=== PATIENT | female | born 1990 | race Caucasian/White ===

== ENCOUNTER 2020-10-26 20:03 | Emergency (ER) | payer MEDICAID, SELFPAY | END 2020-10-26 21:41 | disposition left against medical advice (07) | PROVIDERS: Emergency Provider Emergency Medicine | DX: L02.91 Cutaneous abscess, unspecified (principal) ==

== ENCOUNTER 2021-04-13 01:25 | Emergency (ER) | payer MEDICAID, SELFPAY ==
[2021-04-13 01:35] VITALS: BP 105/69; BP 128/64; PULSE 87; PULSE 88; RESP 18; TEMP 37.1; O2SAT 98; O2SAT 99; BMI 21.4
[2021-04-13] MEDS: Acetaminophen 325 MG TABLET 975 MG PO (02:11)
[2021-04-13 02:12] VITALS: BP 105/69; PULSE 87
[2021-04-13] MEDS: Ondansetron ODT 4 MG TAB.RAPDIS TRANSLINGU (02:12)
[2021-04-13] MEDS: Ibuprofen 600 MG TABLET PO (02:12)
[2021-04-13] MEDS: cloNIDine HCL 0.2 MG TABLET PO (02:12)
[2021-04-13] MEDS: LORazepam 1 MG TABLET 2 MG PO (02:12)
[2021-04-13 02:43] VITALS: BP 107/48; PULSE 88; RESP 22; O2SAT 97
[2021-04-13 02:50] LABS: MANUAL DIFF FLAG NO
[2021-04-13 02:53] LABS: Basophils Percent Auto 0.4 % (0-2); Eosinophils Absolute Auto 0.1 X10*3/uL (0.0-0.4); Eosinophils Percent Auto 0.5 % (0-4); Hematocrit 40.9 % (37.0-47.0); Hemoglobin 13.6 g/dl (12.0-16.0); Imm Gran Abs Auto 0.03 X10*3/uL (0.00-0.03); Imm Gran Pct Auto 0.3 % (0.0-0.4); Lymphocytes Absolute Auto 1.7 X10*3/uL (1.2-4.9); Lymphocytes Percent Auto 17.8 % (20-40); Mean Corpuscular HGB Conc 33.3 g/dl (31.0-35.0); Mean Corpuscular Hemoglobin 29.6 pg (27.0-33.0); Mean Corpuscular Volume 88.9 fL (80.0-98.0); Mean Platelet Volume 9.6 fL (9.4-12.3); Monocytes Absolute Auto 0.4 X10*3/uL (0.1-1.2); Monocytes Percent Auto 4.4 % (2-11); Neutrophils Absolute Auto 7.5 x10*3/uL (2.0-8.3); Neutrophils Percent Auto 76.6 % (45-73); Platelet Count 238 X10*3/uL (160-400); Red Cell Distribution Width 12.1 % (11.0-16.0); White Blood Count 9.8 X10*3/uL (4.8-10.8)
[2021-04-13] MEDS: LORazepam 2 MG/ML VIAL IVPUSH (02:58)
[2021-04-13] MEDS: Ketorolac Tromethamine 15 MG/ML VIAL 30 MG IVPUSH (02:59)
[2021-04-13 03:03] LABS: Ethanol < 10 mg/dL
[2021-04-13 03:07] LABS: Alanine Aminotransferase 16 U/L (0-31); Albumin Level 4.2 g/dL (3.5-5.0); Alkaline Phosphatase 70 U/L (39-117); Anion Gap 14 (12-20); Aspartate Amino Transferase 21 U/L (5-31); Bilirubin Total 0.8 mg/dL (0.0-1.0); Blood Urea Nitrogen 10 mg/dL (9-16); Calcium 8.6 mg/dL (8.4-10.2); Carbon Dioxide 24 mmol/L (22-29); Chloride 106 mmol/L (96-108); Creatinine Clr Calc Pharmacy 105.1; Estimated Glomerular Filt Rate > 60; Glucose Random 96 mg/dL (60-115); Lipase 14 U/L (8-78); Potassium 3.8 mmol/L (3.3-5.1); Sodium 140 mmol/L (135-145); Total Protein 6.7 g/dL (6.5-8.0)
[2021-04-13 03:11] LABS: COVID-19 Test Negative (Negative); IDNOW Serial# 9DD0AD1C
[2021-04-13] MEDS: methADONE HCl 20 MG/2 ML ORAL.CONC PO (04:55)
--- NOTE | 2021-04-13 05:07 | ED_ITS ---
HPI - General Adult General Chief complaint: General Medical <Jasen Flores MD - Last Filed: 04/13/21 06:49> Stated complaint: detox/withdrawal <Jasen Flores MD - Last Filed: 04/13/21 06:49> Time Seen by Provider: 04/13/21 01:54 <Jasen Flores MD - Last Filed: 04/13/21 06:49> Source: patient <Jasen Flores MD - Last Filed: 04/13/21 06:49> Mode of arrival: ambulatory <Jasen Flores MD - Last Filed: 04/13/21 06:49> Limitations: no limitations <Jasen Flores MD - Last Filed: 04/13/21 06:49> History of Present Illness HPI narrative: 30-year-old female who presents emergency department requesting detox from heroin. The patient states that she uses anywhere from 3-10 bags of heroin daily. She states that she uses this intranasally. She states that she wants to get some help and wants to get into a detox program. She states that she last used heroin yesterday at 6:00 a.m.. She states she is currently withdrawing from opiates. She states that she shaking uncontrollably, she has diffuse bone pain which is severe in intensity. She has nausea with occasional vomiting. She denied diarrhea. She states that she cannot take Suboxone since a causes her to get paranoid. She states she has been in a methadone program in the past and she would like to get into a methadone program again. She denies being suicidal or homicidal. She denies being ill in any way prior to coming to the emergency department. <Jasen Flores MD - Last Filed: 04/13/21 06:49> Related Data Allergies/adverse reactions: Allergies Allergy/AdvReac Type Severity Reaction Status Date / Time aripiprazole [From [facility]] Allergy Unknown ANAPHYLAXIS Verified 04/13/21 02:10 <Jasen Flores MD - Last Filed: 04/13/21 06:49> Review of Systems Review of Systems: Yes all other systems are reviewed and are negative <Jasen Flores MD - Last Filed: 04/13/21 06:49> [facility] Past Medical History [facility] Narrative: Past medical history: Opiate use disorder, acute kidney injury Past surgical history: None. Social history: The patient smokes 1/2 pack of cigarettes per day times many years. The patient states that she uses 3-10 bags of heroin per day. She states that she drinks 10 nips of alcohol per day. <Jasen Flores MD - Last Filed: 04/13/21 06:49> Social History Social History: Social History Advance Directives: No Advance Directives Information Provided: No <Jasen Flores MD - Last Filed: 04/13/21 06:49> Physical Exam Vital Signs: Vital Signs: Last Vital Signs Temp 98.7 F 04/13/21 01:35 Pulse 88 04/13/21 02:43 Resp 22 H 04/13/21 02:43 BP 107/48 L 04/13/21 02:43 Pulse Ox 97 04/13/21 02:43 Body Mass Index 21.4 <Jasen Flores MD - Last Filed: 04/13/21 06:49> Vital Signs: Last Vital Signs Temp 98.7 F 04/13/21 01:35 Pulse 88 04/13/21 02:43 Resp 22 H 04/13/21 02:43 BP 107/48 L 04/13/21 02:43 Pulse Ox 97 04/13/21 02:43 Body Mass Index 21.4 <MELISSA Pickett - Last Filed: 04/13/21 11:39> Const: Other: Awake, alert, very thin, female patient, she appears to be in distress secondary to her pain, she is crying, she is shake, she is crying out for help. <Jasen Flores MD - Last Filed: 04/13/21 06:49> HENMT: Head: Yes normal to inspection, Yes normocephalic and Yes atraumatic <Jasen Flores MD - Last Filed: 04/13/21 06:49> Ears: external ears normal <Jasen Flores MD - Last Filed: 04/13/21 06:49> General nose exam: Normal external nose present <Jasen Flores MD - Last Filed: 04/13/21 06:49> Face and sinus: Yes normal facial exam <MD Kiki Mcarthur Last Filed: 04/13/21 06:49> Mouth: Normal oral and palatal mucosa present <MD Kiki Mcarthur Last Filed: 04/13/21 06:49> Throat: Yes posterior oropharynx normal <MD Kiki Mcarthur Last Filed: 04/13/21 06:49> Eyes: General: appearance normal, both eyes and all related structures <MD Kiki Mcarthur Last Filed: 04/13/21 06:49> Pupils: Equal, round and reactive pupils present <MD Kiki Mcarthur Last Filed: 04/13/21 06:49> Neck: Neck: Yes normal visual inspection, Yes no lymphadenopathy, Yes trachea midline and Yes supple <MD Kiki Mcarthur Last Filed: 04/13/21 06:49> Chest: Chest palpation & inspection: normal inspection of the chest and normal palpation of entire chest wall <MD Kiki Mcarthur Last Filed: 04/13/21 06:49> Resp: Effort & Inspection: normal respiratory effort and able to speak in complete sentences <MD Kiki Mcarthur Last Filed: 04/13/21 06:49> Auscultation: clear to auscultation bilaterally <MD Kiki Mcarthur Last Filed: 04/13/21 06:49> Cardio: Rate: regular rate <MD Kiki Mcarthur Last Filed: 04/13/21 06:49> Rhythm: regular rhythm <MD Kiki Mcarthur Last Filed: 04/13/21 06:49> Heart sounds: S1 normal heart sound present, S2 normal heart sound present and no murmurs <MD Kiki Mcarthur Last Filed: 04/13/21 06:49> GI: Inspection: Yes normal to inspection <MD Kiki Mcarthur Last Filed: 04/13/21 06:49> Palpation (GI): Soft to palpation, nontender and no guarding <MD Kiki Mcarthur Last Filed: 04/13/21 06:49> Auscultation: normal bowel sounds <Jasen Flores MD - Last Filed: 04/13/21 06:49> : General: Yes no CVA tenderness <Jasen Flores MD - Last Filed: 04/13/21 06:49> Back/Spine/Pelvis: Back: no CVA tenderness <Jasen Flores MD - Last Filed: 04/13/21 06:49> Skin: General skin exam: no rashes or lesions noted <Jasen Flores MD - Last Filed: 04/13/21 06:49> Neuro: Cranial nerves: Yes CN's II-XII intact bilaterally and Yes Equal, round and reactive pupils present <Jasen Flores MD - Last Filed: 04/13/21 06:49> Cognition (Neuro): normal cognition <Jasen Flores MD - Last Filed: 04/13/21 06:49> Motor exam (neuro): 5/5 motor strength present throughout <Jasen Flores MD - Last Filed: 04/13/21 06:49> Extrem: General: Yes normal to inspection <Jasen Flores MD - Last Filed: 04/13/21 06:49> Psych: Appearance: grossly normal <Jasen Flores MD - Last Filed: 04/13/21 06:49> Speech and movement: Normal speech and movement present <Jasen Flores MD - Last Filed: 04/13/21 06:49> Thought content: Normal thought content present, suicidality and no homicidality <Jasen Flores MD - Last Filed: 04/13/21 06:49> Course Course Course Narrative: 30-year-old female with history of opiate use disorder who uses anywhere from 3-10 bags heroin intranasally daily. She also drinks 10 nips of alcohol per day. Patient states that she last had heroin at 6:00 a.m. yesterday. Patient in the to be in acute opiate withdrawal. She states she cannot take Suboxone sense it causes her to be paranoid. Patient was initially managed with oral Ativan, ibuprofen, and Tylenol. She is also given clonidine 0.2 mg orally. She had very little relief of her discomfort from this treatment. She was then given Toradol 30 mg IV and Ativan 2 mg IV. Again the patient had minimal relief. Given the severity of her withdrawal and her desire to get into a methadone treatment program, she was given methadone 20 mg orally. I will put in a consult to the care team to evaluate the patient for detox and for possible methadone treatment for her opiate use disorder. 0515: The patient's COVID-19 test was negative. CBC and CMP were normal. The patient's alcohol levels below detectable limits. Urine tox screen is pending collection of a urine sample. 0611: Physician observation started at 0611 . The patient did get improvement of her opiate withdrawal symptoms from 1 dose of methadone 20 mg orally. Patient placed in physician observation because the patient needed more time for evaluation by our care team and for assistance in getting into a detox program. At the time observation was started the patient's vitals were stable, patient is alert and oriented patient is resting comfortably., Neuro: nonfocal, CV RRR, Lungs clear. 0648: Physician observation continued: The patient remained calm and cooperative, at the end of my shift, patient's care was turned over to my colleague, Dr. Jacobs. <Jasen Flores MD - Last Filed: 04/13/21 06:49> Reevaluation(s) Reevaluation #1: Physician observation continued. RR 22 this AM, no complaints overnight, in no apparent distress. Patient did an in-take this morning with [facility], pending detox placement. <MELISSA Pickett - Last Filed: 04/13/21 11:39> Time: 11:37 <MELISSA Pickett - Last Filed: 04/13/21 11:39> Medical Decision Making Lab Data Result diagrams: : 04/13/21 02:45 04/13/21 02:45 <Jasen Flores MD - Last Filed: 04/13/21 06:49> Labs: Lab Results 04/13/21 04/13/21 04/13/21 Range/Units 02:45 02:45 02:45 WBC 9.8 (4.8-10.8) X10*3/uL RBC 4.60 (4.20-5.50) X10*6/uL Hgb 13.6 (12.0-16.0) g/dl Hct 40.9 (37.0-47.0) % MCV 88.9 (80.0-98.0) fL MCH 29.6 (27.0-33.0) pg MCHC 33.3 (31.0-35.0) g/dl RDW 12.1 (11.0-16.0) % Plt Count 238 (160-400) X10*3/uL MPV 9.6 (9.4-12.3) fL Immature Gran % (Auto) 0.3 (0.0-0.4) % Neut % (Auto) 76.6 H (45-73) % Lymph % (Auto) 17.8 L (20-40) % [place] % (Auto) 4.4 (2-11) % Eos % (Auto) 0.5 (0-4) % Baso % (Auto) 0.4 (0-2) % Lymph # (Auto) 1.7 (1.2-4.9) X10*3/uL [place] # (Auto) 0.4 (0.1-1.2) X10*3/uL Eos # (Auto) 0.1 (0.0-0.4) X10*3/uL Baso # (Auto) 0.0 (0.0-0.2) X10*3/uL Abs Immat Gran (auto) 0.03 (0.00-0.03) X10*3/uL Absolute Neuts (auto) 7.5 (2.0-8.3) x10*3/uL Absolute Nucleated RBC 0.000 (0.0-0.012) X10*3/uL Nucleated RBC % (auto) 0.0 (0.0-0.2) /100WBC Sodium 140 (135-145) mmol/L Potassium 3.8 (3.3-5.1) mmol/L Chloride 106 (96-108) mmol/L Carbon Dioxide 24 (22-29) mmol/L Anion Gap 14 (12-20) BUN 10 (9-16) mg/dL Creatinine 0.63 (0.5-1.4) mg/dL Estim Creat Clear Calc 105.1 Estimated GFR > 60 Random Glucose 96 (60-115) mg/dL Calcium 8.6 (8.4-10.2) mg/dL Total Bilirubin 0.8 (0.0-1.0) mg/dL AST 21 (5-31) U/L ALT 16 (0-31) U/L Alkaline Phosphatase 70 (39-117) U/L Total Protein 6.7 (6.5-8.0) g/dL Albumin 4.2 (3.5-5.0) g/dL Lipase 14 (8-78) U/L Ethyl Alcohol mg/dL COVID-19 ([facility]) Negative (Negative) COVID-19 Clin Com See Note 04/13/21 Range/Units 02:45 WBC (4.8-10.8) X10*3/uL RBC (4.20-5.50) X10*6/uL Hgb (12.0-16.0) g/dl Hct (37.0-47.0) % MCV (80.0-98.0) fL MCH (27.0-33.0) pg MCHC (31.0-35.0) g/dl RDW (11.0-16.0) % Plt Count (160-400) X10*3/uL MPV (9.4-12.3) fL Immature Gran % (Auto) (0.0-0.4) % Neut % (Auto) (45-73) % Lymph % (Auto) (20-40) % [place] % (Auto) (2-11) % Eos % (Auto) (0-4) % Baso % (Auto) (0-2) % Lymph # (Auto) (1.2-4.9) X10*3/uL [place] # (Auto) (0.1-1.2) X10*3/uL Eos # (Auto) (0.0-0.4) X10*3/uL Baso # (Auto) (0.0-0.2) X10*3/uL Abs Immat Gran (auto) (0.00-0.03) X10*3/uL Absolute Neuts (auto) (2.0-8.3) x10*3/uL Absolute Nucleated RBC (0.0-0.012) X10*3/uL Nucleated RBC % (auto) (0.0-0.2) /100WBC Sodium (135-145) mmol/L Potassium (3.3-5.1) mmol/L Chloride (96-108) mmol/L Carbon Dioxide (22-29) mmol/L Anion Gap (12-20) BUN (9-16) mg/dL Creatinine (0.5-1.4) mg/dL Estim Creat Clear Calc Estimated GFR Random Glucose (60-115) mg/dL Calcium (8.4-10.2) mg/dL Total Bilirubin (0.0-1.0) mg/dL AST (5-31) U/L ALT (0-31) U/L Alkaline Phosphatase (39-117) U/L Total Protein (6.5-8.0) g/dL Albumin (3.5-5.0) g/dL Lipase (8-78) U/L Ethyl Alcohol < 10 mg/dL COVID-19 ([facility]) (Negative) COVID-19 Clin Com <Jasen Flores MD - Last Filed: 04/13/21 06:49> Lab Results 04/13/21 04/13/21 04/13/21 Range/Units 02:45 02:45 02:45 WBC 9.8 (4.8-10.8) X10*3/uL RBC 4.60 (4.20-5.50) X10*6/uL Hgb 13.6 (12.0-16.0) g/dl Hct 40.9 (37.0-47.0) % MCV 88.9 (80.0-98.0) fL MCH 29.6 (27.0-33.0) pg MCHC 33.3 (31.0-35.0) g/dl RDW 12.1 (11.0-16.0) % Plt Count 238 (160-400) X10*3/uL MPV 9.6 (9.4-12.3) fL Immature Gran % (Auto) 0.3 (0.0-0.4) % Neut % (Auto) 76.6 H (45-73) % Lymph % (Auto) 17.8 L (20-40) % [place] % (Auto) 4.4 (2-11) % Eos % (Auto) 0.5 (0-4) % Baso % (Auto) 0.4 (0-2) % Lymph # (Auto) 1.7 (1.2-4.9) X10*3/uL [place] # (Auto) 0.4 (0.1-1.2) X10*3/uL Eos # (Auto) 0.1 (0.0-0.4) X10*3/uL Baso # (Auto) 0.0 (0.0-0.2) X10*3/uL Abs Immat Gran (auto) 0.03 (0.00-0.03) X10*3/uL Absolute Neuts (auto) 7.5 (2.0-8.3) x10*3/uL Absolute Nucleated RBC 0.000 (0.0-0.012) X10*3/uL Nucleated RBC % (auto) 0.0 (0.0-0.2) /100WBC Sodium 140 (135-145) mmol/L Potassium 3.8 (3.3-5.1) mmol/L Chloride 106 (96-108) mmol/L Carbon Dioxide 24 (22-29) mmol/L Anion Gap 14 (12-20) BUN 10 (9-16) mg/dL Creatinine 0.63 (0.5-1.4) mg/dL Estim Creat Clear Calc 105.1 Estimated GFR > 60 Random Glucose 96 (60-115) mg/dL Calcium 8.6 (8.4-10.2) mg/dL Total Bilirubin 0.8 (0.0-1.0) mg/dL AST 21 (5-31) U/L ALT 16 (0-31) U/L Alkaline Phosphatase 70 (39-117) U/L Total Protein 6.7 (6.5-8.0) g/dL Albumin 4.2 (3.5-5.0) g/dL Lipase 14 (8-78) U/L Ethyl Alcohol mg/dL COVID-19 ([facility]) Negative (Negative) COVID-19 Clin Com See Note 04/13/21 Range/Units 02:45 WBC (4.8-10.8) X10*3/uL RBC (4.20-5.50) X10*6/uL Hgb (12.0-16.0) g/dl Hct (37.0-47.0) % MCV (80.0-98.0) fL MCH (27.0-33.0) pg MCHC (31.0-35.0) g/dl RDW (11.0-16.0) % Plt Count (160-400) X10*3/uL MPV (9.4-12.3) fL Immature Gran % (Auto) (0.0-0.4) % Neut % (Auto) (45-73) % Lymph % (Auto) (20-40) % [place] % (Auto) (2-11) % Eos % (Auto) (0-4) % Baso % (Auto) (0-2) % Lymph # (Auto) (1.2-4.9) X10*3/uL [place] # (Auto) (0.1-1.2) X10*3/uL Eos # (Auto) (0.0-0.4) X10*3/uL Baso # (Auto) (0.0-0.2) X10*3/uL Abs Immat Gran (auto) (0.00-0.03) X10*3/uL Absolute Neuts (auto) (2.0-8.3) x10*3/uL Absolute Nucleated RBC (0.0-0.012) X10*3/uL Nucleated RBC % (auto) (0.0-0.2) /100WBC Sodium (135-145) mmol/L Potassium (3.3-5.1) mmol/L Chloride (96-108) mmol/L Carbon Dioxide (22-29) mmol/L Anion Gap (12-20) BUN (9-16) mg/dL Creatinine (0.5-1.4) mg/dL Estim Creat Clear Calc Estimated GFR Random Glucose (60-115) mg/dL Calcium (8.4-10.2) mg/dL Total Bilirubin (0.0-1.0) mg/dL AST (5-31) U/L ALT (0-31) U/L Alkaline Phosphatase (39-117) U/L Total Protein (6.5-8.0) g/dL Albumin (3.5-5.0) g/dL Lipase (8-78) U/L Ethyl Alcohol < 10 mg/dL COVID-19 ([facility]) (Negative) COVID-19 Clin Com <MELISSA Pickett - Last Filed: 04/13/21 11:39> Discharge Plan Discharge Clinical Impression: Substance abuse <Jasen Flores MD - Last Filed: 04/13/21 06:49>
--- NOTE | 2021-04-13 06:52 | PC.NURSE ---
went in to do vitals and pt wouldn't move from laying on her stomach. said she didn't want anything done at this time she had just fallen asleep.
--- NOTE | 2021-04-13 12:31 | MHC.RECOVSUP ---
Recovery Support note: Patient is a 30 year old Greek speaking female who presented to [facility] ED due to opiate withdrawal. Patient was medicated with methadone. This song writer met with patient to discuss recovery treatment programs. Patient expressed interest in going to detox however states she will not go to [facility]. Patient has been accepted to [facility] and completed intake. Admission scheduled for 1300. Patient became tearful at discharge, stating she has separation anxiety and that she would like to see her boyfriend. This song writer addressed patient's questions and patient was transported to [facility] via [facility] service. Last dose letter provided. Discussed case with patient's RN and ED provider.
== END 2021-04-13 11:59 | disposition other institution (70) ==
PROVIDERS: Emergency Provider Emergency Medicine Emergency Medical Services
DX: F11.23 Opioid dependence with withdrawal (principal); F11.29 Opioid dependence with unspecified opioid-induced disorder; F17.210 Nicotine dependence, cigarettes, uncomplicated; Z20.822 Contact with and (suspected) exposure to COVID-19; Z79.899 Other long term (current) drug therapy; Z71.51 Drug abuse counseling and surveillance of drug abuser; Z71.6 Tobacco abuse counseling
CPT/HCPCS: 36415; 80053; 82077; 83690; 85025; 87635; 96374; 96375; 99284; 99285; J1885; J2060

== ENCOUNTER 2021-05-02 17:19 | Emergency (ER) | payer MEDICAID, SELFPAY ==
[2021-05-02 17:21] VITALS: BP 110/62; PULSE 87; RESP 16; TEMP 36.7; O2SAT 98; BMI 18.3
== END 2021-05-02 17:21 | disposition left against medical advice (07) ==
PROVIDERS: Emergency Provider Emergency Medicine
DX: F19.90 Other psychoactive substance use, unspecified, uncomplicated (principal)
CPT/HCPCS: 99281

== ENCOUNTER 2021-05-05 11:51 | Emergency (ER) | payer MEDICAID, SELFPAY ==
[2021-05-05 12:29] VITALS: BP 125/72; PULSE 90; RESP 16; O2SAT 96; BMI 21.9
--- NOTE | 2021-05-05 13:13 | ED.DENTAL ---
HPI - Dental/Oral General Chief complaint: Dental/Oral Stated complaint: Dental Pain Time Seen by Provider: 05/05/21 13:13 Source: patient Mode of arrival: ambulatory Limitations: no limitations History of Present Illness HPI Narrative: 30 y/o female Complaint: tooth pain Onset (ago): day(s) (5) Duration: constant Severity: severe Relieving factors: nothing Exacerbating factors: chewing Context: poor dental care Treatment prior to arrival: none Related Data Allergies Allergy/AdvReac Type Severity Reaction Status Date / Time aripiprazole [From [facility]] Allergy Unknown ANAPHYLAXIS Verified 04/13/21 02:10 Review of Systems Review of Systems: Constitutional: No Fever, No Chills ENT/Mouth: No sore throat, No Rhinorrhea, No Swallowing Difficulty, +dental pain Cardiovascular: No Chest Pain, No SOB Gastrointestinal: No Nausea, No Vomiting Musculoskeletal: No joint pain, No Myalgias Skin: No Skin Lesions, No rash Neuro: No Weakness, No Numbness, No Dizziness, + Headache Psych: + Anxiety/Panic, No Depression Heme/Lymph: No Bruising, No Lymphadenopathy PMFSH Past Medical History Medical History (Updated 05/03/21 @ 00:01 by Pattie Williamson) Heroin abuse Social History Social History Advance Directives: No Advance Directives Information Provided: No Physical Exam Vital Signs: Vital Signs: Last Vital Signs Pulse 90 05/05/21 12:29 Resp 16 05/05/21 12:29 BP 125/72 05/05/21 12:29 Pulse Ox 96 05/05/21 12:29 Body Mass Index 21.9
== END 2021-05-05 14:04 | disposition left against medical advice (07) ==
PROVIDERS: Emergency Provider Emergency Medicine Emergency Medical Services
DX: K08.89 Other specified disorders of teeth and supporting structures (principal)
CPT/HCPCS: 99281; 99282

== ENCOUNTER 2021-08-20 11:09 | Emergency (ER) | payer MEDICAID, SELFPAY ==
[2021-08-20 11:30] VITALS: BP 95/52; PULSE 82; RESP 19; TEMP 36.6; O2SAT 98; BMI 21.0
--- NOTE | 2021-08-20 11:45 | ED_ITS ---
HPI - Dental/Oral General Chief complaint: Dental/Oral Stated complaint: abscess on tooth/jaw pain Time Seen by Provider: 08/20/21 11:45 Source: patient Mode of arrival: ambulatory Limitations: no limitations History of Present Illness HPI Narrative: 30 y/o female with history of poor dental care and history of multiple broken and decayed teeth, history of dental abscess in the past who presents to the ER c/o 3 days of left lower dental pain and she thinks she has an abscess. She reports last time she had an abscess her face was very swollen and she is afraid that this will develop into that scenario. She has not seen a dentist in several years. She reports some mild left lower dental swelling and significant pain to the area for the last 3 days. She has not been taking any medications for the pain. She denies any trouble swallowing. MD Complaint: tooth pain Location: Tooth # (20) Onset (ago): day(s) (3) Duration: constant Severity: severe Severity scale (1-10): 8 Relieving factors: nothing Exacerbating factors: chewing Context: history of dental caries and poor dental care Associated symptoms: gum swelling Treatment prior to arrival: none Related Data Previous Rx's Medication Instructions Recorded chlorhexidine gluconate 0.12 % 15 ml BUCCAL BID #473 ml 08/20/21 mouthwash clindamycin HCl 300 mg capsule 300 mg PO Q6H 7 Days #28 cap 08/20/21 ibuprofen 600 mg tablet 600 mg PO Q8H PRN #30 tab 08/20/21 Allergies Allergy/AdvReac Type Severity Reaction Status Date / Time aripiprazole [From [facility]] Allergy Unknown ANAPHYLAXIS Verified 04/13/21 02:10 Review of Systems Constitutional: Constitutional: Denies chills, Denies fever(s) and Reports headache(s) ENT: Denies bleeding gums, Reports dental pain, Reports facial pain, Reports headache(s), Denies lip swelling, Reports mouth pain, Denies neck pain, Denies sore throat, Denies throat swelling and Denies tongue swelling Cardiovascular: Cardiovascular: Denies chest pain Respiratory: Respiratory: Denies cough Musculoskeletal: Musculoskeletal: Denies neck pain Neurologic: Reports headache(s) Psychiatric: Psychiatric: Reports anxiety Hematologic/Lymphatic: Hematologic/Lymphatic: Denies easy bleeding Allergic/Immunologic: Allergic/Immunologic: Denies lip swelling, Denies throat swelling and Denies tongue swelling [facility] Past Medical History Medical History (Updated 08/20/21 @ 11:46 by MELISSA Doll) Heroin abuse Social History Social History Advance Directives: No Advance Directives Information Provided: Yes Physical Exam Vital Signs: Vital Signs: Last Vital Signs Temp 98 F 08/20/21 11:30 Pulse 82 08/20/21 11:30 Resp 19 08/20/21 11:30 BP 95/52 L 08/20/21 11:30 Pulse Ox 98 08/20/21 11:30 BMI result Body Mass Index 21.0 Const: General: cooperative, healthy appearing, comfortable and no acute distress Nutritional Appearance: average body habitus Orientation/consciousness: patient oriented x3 Limitations: no limitations HENMT: Head: Yes normal to inspection, Yes normocephalic and Yes atraumatic Ears: hearing grossly normal bilaterally, external ears normal and TM's normal bilaterally General nose exam: Normal external nose present and Normal nares present Face and sinus: Yes edema Face images: 1. Mild mandibular swelling Mouth: Normal oral and palatal mucosa present, lip normal, tongue normal and moist mucous membranes Teeth and gingiva: abnormal tooth and associated gingiva upper left second bicuspid tender, with associated gingival edema, enamel fractured, dentin fractured and pulp exposed and poor dentition Throat: Yes posterior oropharynx normal, Yes tonsils normal and Yes uvula midline Eyes: General: appearance normal, both eyes and all related structures Neck: Neck: Yes normal visual inspection, Yes full ROM and Yes no lymphadenopathy Chest: Chest palpation & inspection: normal inspection of the chest Resp: Effort & Inspection: normal respiratory effort and able to speak in complete sentences Skin: General skin exam: no rashes or lesions noted Neuro: General: patient oriented x3 Extrem: General: Yes normal to inspection Psych: Appearance: grossly normal Mental Status: mental status grossly normal Speech and movement: Normal speech and movement present Course Course Course Narrative: 22-year-old female presenting with left lower dental pain. She has very poor dentition with several broken teeth down to the gumline. Tooth 20. Appears to be acutely infected with palpable abscess, no fluctuance appreciated. There is indurated and tender. She does not want to attempt drainage today. She would like antibiotics and then to follow-up with dental. Stable for discharge home with NSAID and antibiotic for dental abscess. Instructed to come back to the ER with worsening symptoms if they develop. Discharge Plan Discharge Clinical Impression: Dental abscess Patient Disposition: Home, Self-Care Instructions: Dental Abscess (ED) Additional Instructions: Take the prescribed antibiotic as directed. Complete the entire course Take the prescribed anti-inflammatory pain medication as directed - take with food Use a warm black tea bag to the area to help with pain and inflammation Use over the counter Orajel to help with pain Follow up with a dentist [facility] If you develop new or worsening symptoms call 911 or come back to the ER for further evaluation. Prescriptions: New clindamycin HCl 300 mg capsule 300 mg PO Q6H 7 Days Qty: 28 0RF ibuprofen 600 mg tablet 600 mg PO Q8H PRN (Reason: pain) Qty: 30 0RF chlorhexidine gluconate 0.12 % mouthwash 15 ml buccal BID Qty: 473 0RF Stand Alone Forms: Dental Emergency Numbers Interventions: ED Discharge Assessment Last Done: 08/20/21 12:05 Discharge Date/Time: 08/20/21 12:06
== END 2021-08-20 12:06 | disposition home or self-care (01) ==
LOC: HO.ED 11:56
PROVIDERS: Emergency Provider Emergency Medicine
DX: K04.7 Periapical abscess without sinus (principal); K08.89 Other specified disorders of teeth and supporting structures; K02.9 Dental caries, unspecified; K03.81 Cracked tooth; F19.10 Other psychoactive substance abuse, uncomplicated
CPT/HCPCS: 99283

== ENCOUNTER 2022-02-01 22:46 | Emergency (ER) | payer MEDICAID, SELFPAY ==
[2022-02-01 22:58] VITALS: BP 136/84; PULSE 78; RESP 18; TEMP 37.2; O2SAT 98; BMI 22.8
== END 2022-02-02 00:46 | disposition left against medical advice (07) ==
PROVIDERS: Emergency Provider Emergency Medicine
DX: K08.89 Other specified disorders of teeth and supporting structures (principal)
CPT/HCPCS: 99281

== ENCOUNTER 2022-02-02 09:07 | Emergency (ER) | payer MEDICAID, SELFPAY ==
[2022-02-02 09:14] VITALS: BP 123/78; PULSE 90; RESP 14; O2SAT 97; BMI 22.8
--- NOTE | 2022-02-02 10:06 | ED_ITS ---
HPI - Dental/Oral General Chief complaint: Skin/Abscess/Foreign Body Stated complaint: Swollen jaw R side Time Seen by Provider: 02/02/22 09:46 Source: patient Mode of arrival: ambulatory Limitations: no limitations History of Present Illness HPI Narrative: 31-year-old female with history of substance abuse, multiple dental abscesses in the past who presents to the ER for evaluation of worsening right lower jaw p ain, swelling and probable dental abscess. She has poor dentition at baseline and does not have a dentist. She reports a few days ago she started having pain and swelling in her right lower jaw. It has gotten worse and worse every day. She has difficulty and pain opening her jaw fully. She has been having difficulty eating and drinking but is able to drink. She denies any fevers, nausea, vomiting. She denies any ongoing IVDA, she is on maintenance methadone. MD Complaint: tooth pain Location: Tooth # (29-30) Onset (ago): day(s) (4) Duration: constant Severity: severe Severity scale (1-10): 10 Relieving factors: nothing Exacerbating factors: chewing Context: history of dental caries and poor dental care Associated symptoms: gum swelling Treatment prior to arrival: oral analgesic Related Data Previous Rx's Medication Instructions Recorded chlorhexidine gluconate 0.12 % 15 ml buccal BID #473 mL 08/20/21 mouthwash clindamycin HCl 300 mg capsule 300 mg PO Q6H 7 days #28 caps 08/20/21 ibuprofen 600 mg tablet 600 mg PO Q8H PRN pain #30 tabs 08/20/21 clindamycin HCl 300 mg capsule 300 mg PO Q6H 7 days #28 caps 02/02/22 ibuprofen 600 mg tablet 600 mg PO Q8H PRN pain #20 tabs 02/02/22 Allergies Allergy/AdvReac Type Severity Reaction Status Date / Time aripiprazole [From ABILIFY] Allergy Unknown ANAPHYLAXIS Verified 04/13/21 02:10 Review of Systems Review of Systems: Constitutional: No Fever, No Chills ENT/Mouth: No sore throat, No Rhinorrhea, + Swallowing Difficulty, +tooth pain, +jaw swelling Cardiovascular: No Chest Pain, No SOB Respiratory: No Cough, No Sputum, No Wheezing, No dyspnea Gastrointestinal: No Nausea, No Vomiting Musculoskeletal: No joint pain, No Myalgias Skin: No Skin Lesions, No rash Neuro: No Weakness, No Numbness, No Dizziness, + Headache Psych: + Anxiety/Panic, No Depression Heme/Lymph: No Bruising, + Lymphadenopathy PMFSH Past Medical History Medical History (Updated 02/02/22 @ 10:28 by MELISSA Doll) Heroin abuse Social History Social History Advance Directives: No Advance Directives Information Provided: Yes Physical Exam Vital Signs: Vital Signs: Last Vital Signs Pulse 90 02/02/22 09:14 Resp 14 02/02/22 09:14 BP 123/78 02/02/22 09:14 Pulse Ox 97 02/02/22 09:14 O2 Del Method 02/02/22 09:14 BMI result Body Mass Index 22.8 Appearance: Alert, disheveled. Oriented X3. Appears uncomfortable. HEENT: Moderate right lower jaw swelling associated tenderness. Poor dentit ion, in the area of expected tooth number 30 there is associated gingival swelling and fluctuance consistent with abscess. Able to open the mouth most of the way but pain with full opening of the jaw. CVS: Normal heart rate and rhythm. Pulses normal. Respiratory: No respiratory distress. Skin: Skin warm and dry. Normal skin color. Normal skin turgor. No rashes. Extremities: Normal inspection, normal range of motion. No evidence of IVDA. Neuro: Oriented X 3. No motor deficit. No sensory deficit. Course Course Course Narrative: 31-year-old female presents to the ER for evaluation of a right lower dental abscess. She is in agreement with incision and drainage today. Reevaluation(s) Reevaluation #1: Abscess was incised with a #11 Blade with large amount of green purulent material expressed. Patient tolerated procedure well. Will start her on clindamycin and anti-inflammatory pain medication. She has Peridex rinse at home. She is on methadone for substance abuse. She was given in emergency list dentists in the area. She will follow-up with them. Return precautions were discussed. Stable for discharge home. Procedures Abscess I/D Site: oral Side (if applicable): right Local Anesthetic: other anesthetic (Lollicane) Technique: incised with blade Sent for culture/gram staining?: No Irrigation: Yes Packing used?: none Complications: pain and bleeding Discharge Plan Discharge Clinical Impression: Abscess, dental Patient Disposition: Home, Self-Care Instructions: Dental Abscess (ED) Additional Instructions: Take the prescribed antibiotic as directed. Complete the entire course. Start antibiotic right away. Take the prescribed anti-inflammatory pain medication as needed for pain and swelling. Recommend using your previously prescribed Peridex mouth rinse 2 times a day, swish and spit Use warm compresses to the outside of your jaw to help increase blood flow and help fight the infection. Follow-up with a dentist as soon as possible If you develop new or worsening symptoms call 911 or come back to the ER for further evaluation. Prescriptions: New clindamycin HCl 300 mg capsule 300 mg PO Q6H 7 Days Qty: 28 0RF ibuprofen 600 mg tablet 600 mg PO Q8H PRN (Reason: pain) Qty: 20 0RF No Action clindamycin HCl 300 mg capsule 300 mg PO Q6H 7 Days Qty: 28 0RF ibuprofen 600 mg tablet 600 mg PO Q8H PRN (Reason: pain) Qty: 30 0RF chlorhexidine gluconate 0.12 % mouthwash 15 ml buccal BID Qty: 473 0RF
--- NOTE | 2022-02-02 11:24 | PC.NURSE ---
PT EVALUATED BY PROVIDER DRAINED SMALL AMOUNT OF GREEN DRAINAGE. PT EDUCATED ON CARE AND FOLLOW UP. AGREEABLE TO PLAN
== END 2022-02-02 11:26 | disposition home or self-care (01) ==
PROVIDERS: Emergency Provider Emergency Medicine
DX: K04.7 Periapical abscess without sinus (principal); K08.89 Other specified disorders of teeth and supporting structures; F11.20 Opioid dependence, uncomplicated
CPT/HCPCS: 41800; 99282; 99284

== ENCOUNTER 2022-09-13 09:52 | Emergency (ER) | payer MEDICAID, SELFPAY ==
[2022-09-13 09:56] VITALS: BP 142/69; PULSE 100; RESP 18; TEMP 36.8; O2SAT 99; BMI 24.7
--- NOTE | 2022-09-13 10:19 | ED_ITS ---
HPI - General Adult General Chief complaint: Dental/Oral Stated complaint: l side facial swelling Time Seen by Provider: 09/13/22 10:19 Source: patient Mode of arrival: ambulatory Limitations: no limitations History of Present Illness HPI narrative: Patient is a 31 year old assigned female at with a history of substance abuse presenting to the emergency department today with left sided facial swelling. Patient states that she does not have regular dental care. Reports the swelling started a week ago on her left upper lip and now has spread to her left face with increased pressure to her left eye and left jaw. Patient denies any dizziness, lightheadedness, dysphasia, abdominal pain, nausea, vomiting, fever, double vision, loss of vision, chest pain, difficulty breathing, shortness of breath, back pain, night sweats, pain with urination, increased urinary frequency, increased urinary urgency, blood in her urine or stool, syncope or a near syncopal episode, recent trauma or falls, bowel incontinence, bladder incontinence, bowel retention, bladder retention, or any other complaints at this time. Onset (ago): week(s) (1) Location: face (left) Severity: mild Severity scale (1-10): 2 Quality: dull Pain Consistency: constant Relieving factors: none Exacerbating factors: none Associated symptoms: denies other symptoms Treatments prior to arrival: none Related Data Previous Rx's Medication Instructions Recorded chlorhexidine gluconate 0.12 % 15 ml buccal BID #473 mL 08/20/21 mouthwash clindamycin HCl 300 mg capsule 300 mg PO Q6H 7 days #28 caps 08/20/21 ibuprofen 600 mg tablet 600 mg PO Q8H PRN pain #30 tabs 08/20/21 clindamycin HCl 300 mg capsule 300 mg PO Q6H 7 days #28 caps 02/02/22 ibuprofen 600 mg tablet 600 mg PO Q8H PRN pain #20 tabs 02/02/22 chlorhexidine gluconate 0.12 % 15 ml buccal BID #118 mL 09/13/22 mouthwash (Peridex) penicillin V potassium 500 mg 500 mg PO BID 10 days #20 tabs 09/13/22 tablet Allergies Allergy/AdvReac Type Severity Reaction Status Date / Time aripiprazole [From ABILIFY] Allergy Unknown ANAPHYLAXIS Verified 04/13/21 02:10 Review of Systems Review of Systems: Yes all other systems are reviewed and are negative Constitutional: Constitutional: Reports as per HPI Eyes: Eyes: Denies change in vision, Denies eye discharge and Denies loss of vision ENT: Reports as per HPI, Reports dental pain, Denies dysphagia, Denies otalgia and Reports mouth pain Cardiovascular: Cardiovascular: Reports no additional cardiovascular complaints, Denies dyspnea on exertion and Denies orthopnea Respiratory: Respiratory: Reports no additional respiratory complaints, Denies cough and Denies dyspnea on exertion Gastrointestinal: Gastrointestinal: Denies dysphagia Genitourinary: Genitourinary: Denies hematuria, Denies urinary frequency, Denies dysuria, Denies urinary incontinence, Denies urinary hesitancy and Denies urinary urgency Musculoskeletal: Musculoskeletal: Reports no additional musculoskeletal complaints Integumentary/Breasts: Skin/Breast: Reports swelling (left facial) and Denies change in pigmentation Neurologic: Reports system reviewed and no additional complaints, except as documented and Denies loss of vision Psychiatric: Psychiatric: Reports no additional psychiatric complaints Endocrine: Endocrine: Reports no additional endocrine complaints Hematologic/Lymphatic: Hematologic/Lymphatic: Reports no additional hematologic/lymphatic complaints Allergic/Immunologic: Allergic/Immunologic: Reports no additional allergic/immunologic complaints [facility] Past Medical History Attestation statement: The following information was validated with the patient. Source: old records reviewed and nursing notes reviewed Medical History Heroin abuse Social History Social History Advance Directives: No Advance Directives Information Provided: No Physical Exam ED Vital Signs: Vital Signs - 24 hr 09/13/22 09:56 Temperature 98.3 F Pulse Rate 100 Respiratory Rate 18 Blood Pressure 142/69 H Pulse Oximetry 99 Oxygen Delivery Method Room Air BMI result Body Mass Index 24.7 Const General: cooperative and no acute distress Nutritional Appearance: average body habitus Orientation/consciousness: oriented to person, oriented to place, oriented to time and patient oriented x3 Limitations: no limitations HENMT Head: Yes normocephalic, Yes atraumatic, No abrasion and No Acrocyanosis present Ears: hearing grossly normal bilaterally and external ears normal General nose exam: Normal external nose present Face and sinus: No face symmetric (swelling of left upper lip, mild swelling to left face.), No ecchymosis and No erythema Mouth: moist mucous membranes, no drooling, lip abnormal (left upper lip swelling), No mouth trauma, no muffled voice, No abnormal TMJ and no trismus Teeth and gingiva: abnormal tooth and associated gingiva, caries and poor dentition Throat: Yes posterior oropharynx normal and Yes uvula midline Eyes General: appearance normal, both eyes and all related structures Periorbital: periorbital findings normal Eyelids: Yes eyelids normal Conjunctivae: conjunctivae normal Pupils: Equal, round and reactive pupils present EOM: EOMs intact bilaterally Neck Neck: Yes normal visual inspection and Yes full ROM Lymphatic: no lymphadenopathy noted Chest Chest palpation & inspection: normal inspection of the chest Resp Effort & Inspection: normal respiratory effort and able to speak in complete sentences Auscultation: wheezes expiratory wheezes, right lower and right upper Cardio Rate: regular rate Rhythm: regular rhythm GI Inspection: Yes normal to inspection Skin General skin exam: no rashes or lesions noted Lesions: no lesions Rashes: no rashes Trauma: no lacerations or abrasions Wounds: no wounds Neuro General: oriented to person, oriented to place, oriented to time and patient oriented x3 Cranial nerves: Yes Equal, round and reactive pupils present Cognition (Neuro): normal cognition Motor exam (neuro): 5/5 motor strength present throughout Sensory Exam: Normal double simultaneous stimulation for sensation Coordination: [id number] test normal Extrem General: Yes normal to inspection, Yes full ROM and Yes capillary refill normal Psych Appearance: grossly normal Mental Status: mental status grossly normal Affect: normal affect Attitude: cooperative Thought process: Normal thought process present Thought content: Normal thought content present Insight: Good insight present (Psych) Medical Decision Making Medical Decision Making MDM Narrative: Patient is a 31 year old assigned female at with a history of substance abuse presenting to the emergency department today with left sided dental pain. Patient's physical exam showed poor dentition throughout with multiple dental caries and minimal left sided facial swelling, consistent with a dental abscess. I explained my physical exam findings to the patient. I answered all questions asked by the patient. I stressed the importance of the patient taking her medication as prescribed. I stressed the importance of the patient following up with her primary care provider and a dentist. I stressed the importance of the patient returning to the emergency department immediately if her symptoms were to worsen or if she were to develop any dizziness, shortness of breath, difficulty breathing, chest pain, blurry vision, loss of vision, nausea, vomiting, abdominal pain, fever, chills, back pain, or any other complaints. P atient verbalized agreement and understanding with this treatment plan and discharge. Differential Diagnosis Differential Diagnoses: The differential diagnosis associated with the presentation includes left sided dental abscess Discharge Plan Discharge Clinical Impression: Dental abscess Patient Disposition: Home, Self-Care Instructions: Dental Abscess (ED) Additional Instructions: Follow up with your primary care provider. and a dentist Return to the emergency department immediately if your symptoms worsen or if you develop any dizziness, shortness of breath, difficulty breathing, chest pain, blurry vision, loss of vision, nausea, vomiting, abdominal pain, fever, chills, back pain, or any other complaints. Call or visit any of the clinics below to establish with a dentist: [facility] [address] [place] [address] [facility] [address] [facility] [place], [address] [address] [address] [facility] [address] [place] [address] [facility] [address] [place] [address] [place] [address] [place] [address] Prescriptions: New penicillin V potassium 500 mg tablet 500 mg PO BID 10 Days Qty: 20 0RF chlorhexidine gluconate [Peridex] 0.12 % mouthwash 15 ml buccal BID Qty: 118 0RF No Action clindamycin HCl 300 mg capsule 300 mg PO Q6H 7 Days Qty: 28 0RF ibuprofen 600 mg tablet 600 mg PO Q8H PRN (Reason: pain) Qty: 20 0RF clindamycin HCl 300 mg capsule 300 mg PO Q6H 7 Days Qty: 28 0RF ibuprofen 600 mg tablet 600 mg PO Q8H PRN (Reason: pain) Qty: 30 0RF chlorhexidine gluconate 0.12 % mouthwash 15 ml buccal BID Qty: 473 0RF Referrals: [facility] Family Medicine [Provider Group] (Call to establish and follow up with a primary care provider. If you already have a primary care provider, please follow up with them.) [facility] Primary [facility] [Provider Group] (Call to establish and follow up with a primary care provider. If you already have a primary care provider, please follow up with them.) [facility] Primary [facility] [Provider Group] (Call to establish and follow up with a primary care provider. If you already have a primary care provider, please follow up with them.) Interventions: ED Discharge Assessment Last Done: 09/13/22 11:10 Discharge Date/Time: 09/13/22 11:10 Print Language: Upper Sorbian
--- OUTSIDE RECORDS SUMMARY | 2022-09-13 10:32 | XMS_ITS | Continuity of Care Document ---
Author Name Unknown Organization [facility] Address [address] [place] [id number]- Care Team Providers Care Heel Attacher Name Role Phone Not on Staff, PCP Primary Care Physician Unavail able Encounter [facility] Date(s): 12/20/20 - 12/20/[address] [address]- Discharge Disposition: A-D/C Walkout Attending Physician: Not on Staff, Attending MD Admitting Physician: Not on Staff, Admitting MD Referring Physician: Not on Staff, Referring MD Allergies, Adverse Reactions, Alerts Substance Reaction Severity Status Abilify Active Immunizations Given and Recorded Vaccine Date Status Refusal Reason tetanus/diphtheria/pertussis, acel(Tdap) 04/23/16 Given influenza virus vaccine, inactivated 1 04/09/16 Gi mynor influenza virus vaccine, inactivated 2 04/22/10 Gi mynor Gardasil (oldterm) 01/13/09 Given Gardasil (oldterm) 09/13/08 Given Human Papillomavirus Vaccine 07/24/08 Given Human Papillomavirus Vaccine 09/08/06 Given Tet/Diphth/Acel, Pertussis (oldterm) 09/08/06 Give n 1Early/Late Reason: Accommodate D/C 2Early/Late Reason: Nursing Judgment Medications Methadone = 55 mg, By Mouth, 0 Refills, Maintenance, 12/20/20 11:21:00 EDT, Partial fill upon patient requestif the prescription is for a schedule II opioid drug. Start Date: 12/20/20 Status: Ordered Problem List Condition Effective Dates Status Health Status Inform ant GBS bacteriuria(Confirmed) Active Constipation(Confirmed) Active Depression(Confirmed) Active S/P ureteral reimplantation(Confirmed) Active IV drug abuse(Confirmed) Active PTSD (post-traumatic stress disorder)(Confirmed) Active - Patient not se en by OB since 11/2018, if she presents to ED please contact Consuelo Patricia(Confirmed) Active MDQ Negative(Confirmed) 1 Active Tobacco abuse(Confirmed) Active Hepatitis C(Confirmed) Active 1MDQ neg Vital Signs Most recent to oldest [Reference Range]: 1 2 Height 158 cm (12/20/20 11:17 AM) Weight 52 kg (12/20/20 11:17 AM) Oxygen Saturation [94-100 %] 98 % (12/20/20 11:20 AM) 96 % (12/20/20 11:13 AM) Pulse Rate [55-90 bpm] 69 bpm (12/20/20 11:20 AM) 82 bpm (12/20/20 11:13 AM) Blood Pressure [90-138/55-84 mm Hg] 105/ 72mm Hg (12/20/20 11:20 AM) Respiratory Rate [16-30 br/min] 18 br/mi n (12/20/20 11:20 AM) Temperature [96.8-100.4 DegF] 98.4 DegF (12/20/20 11:20 AM) Mode of Delivery (Oxygen) Room air (12/20/20 11:20 AM) Room air (12/20/20 11:13 AM) Blood pressure sites Arm, right (12/20/20 11:20 AM) Temperature Route Oral (12/20/20 11:20 AM) Dry Weight 52 kg (12/20/20 11:17 AM) Social History Social History Type Response Smoking Status Current every day el kwok entered on: 08/28/17 Sex
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
--- OUTSIDE RECORDS SUMMARY | 2022-09-13 10:32 | XMS_ITS | Continuity of Care Document ---
Author Name Unknown Organization [facility] Mario Fishman nFawads [facility] Address [address] [place] [address]- Care Team Providers Care Electrician Name Role Phone Not on Staff, PCP Primary Care Physician Unavail able Encounter [facility] Date(s): 07/01/22 - 07/31/22 [facility] Mario Tinajeros [facility] [address] [place] [address]- Allergies, Adverse Reactions, Alerts Substance Reaction Severity [...] D/C 2Early/Late Reason: Nursing Judgment Medications Methadone See Instructions, Methadone 105 mg in am Methadone 25 mg po in pm, 0 Refills, Maintenance, 06/23/2311:31:00 EST, Partial fill upon patient request if the prescription is for a schedule II opioid drug. Start Date: 06/23/22 Status: Ordered Nicotine 7 mg/24 hour patch 1 patch, Topically, Daily, # 30 patch, 2 Refills, Acute 08/14/22 13:22:00 EST, 07/06/22 13:22:00 EST, Patch, [id number], Partial fill upon patient request if the prescription is for a schedule II opioid drug., 1 patch Topically Daily, 158, cm,... Start Date: 07/06/22 Stop Date: 08/14/22 Status: Ordered Multivitamins with Folic Acid 1 mg oral tablet 1 tablet, By Mouth, Daily, # 90 tablet, 2 Refills, Maintenance, 06/23/22 12:32:00 EST, [id number], Partial fill upon patient request if the prescription is for a schedule II opioid drug., 1 tablet By Mouth Daily, 158, cm, 06/23/22 10:34:00 EST... Start Date: 06/23/22 Status: Ordered sertraline 50 mg oral tablet 1 tablet = 50 mg, By Mouth, Daily, # 30 tablet, 0 Refills, Maintenance, 07/06/22 13:24:00 EST, Tablet, Partial fill upon patient request if the prescription is for a schedule II opioid drug. Start Date: 07/06/22 Status: Ordered Problem List Condition Confirmation Course Effective Dates Status H ealth Status Informant History of Constipation Confirmed Active Depression Confirmed Active echogenic intracardiac focus on ultrasound Confirmed Active S/P ureteral reimplantation Confirmed Active History of IV drug abuse on Methadone Jun 2022 Confirmed Active Obese class I Confirmed Active History of PTSD (post-traumatic stress disorder) Confirmed Active - Patient not seen by OB since 11/2018, if she presents to ED please contact [facility] Confirmed Active Rubella non-immune status, antepartum Confirmed Active MDQ Negative 1 Confirmed Active Tobacco abuse Confirmed Active Hepatitis C Confirmed Active 1MDQ neg Social History Social History Type Response Smoking Status 10 or more cigarette s (1/2 pack or more)/day in last 30 days entered on: 06/23/22 Sex Patient Care team information Care Team Personnel Name: Not on Staff, PCP Position: [facility] Physician (General Medicine) Member Role: PCP Name: Suzan Swift DO Position: [facility] PEDODONTIST MD Member Role: Lifetime PEDODONTIST Physician Address: Address: [address] [place] [address]- Care Team Related Persons Name: ZULLY CLIFTON Address: home [address] [place] [address] Name: WHIT CARTWRIGHT Name: LULA GUY Address: home [address] [place] [id number] Name: PT STATES, NO ONE Name: KEIRY RIVER Address: home [address] [place] [address]
--- OUTSIDE RECORDS SUMMARY | 2022-09-13 10:32 | XMS_ITS | Continuity of Care Document ---
Author Name Unknown Organization [facility] Address [address] [place] [address]- Care Team Providers Care Tacking Stitch Remover Name Role Phone Not on Staff, PCP Primary Care Physician Unavail able Encounter [facility] [place] Date(s): 05/06/22 - 06/10/[address] [address]- Attending Physician: Not on Staff, Attending MD Allergies, Adverse Reactions, Alerts Substance Reaction [...] opioid drug. Start Date: 12/20/20 Status: Ordered ondansetron 8 mg oral tablet, disintegrating 1 tablet = 8 mg, By Mouth, 3 times a day, PRN Nausea, # 15 tablet, 0 Refills, Soft Stop, 06/19/21 12:56:00 EST, DIS Tablet, [id number], Partial fill upon patient request if the prescription is for a schedule II opioid drug., 158, cm, 06/19/21... Start Date: 06/19/21 Status: Ordered Problem List Condition Confirmation Course Effective Dates Status H ealth Status Informant GBS bacteriuria Confirmed Active Constipation Confirmed Active Depression Confirmed Active S/P ureteral reimplantation Confirmed Active IV drug abuse Confirmed Active PTSD (post-traumatic stress disorder) Confirmed Active - Patient not seen by OB since 11/2018, if she presents to ED please contact Consuelo Mccain ObGyjose Confirmed Active MDQ Negative 1 Confirmed Active Tobacco abuse Confirmed Active Hepatitis C Confirmed Active 1MDQ neg Social History Social History Type Response Smoking Status Current every day sm mignontere entered on: 08/28/17 Sex Patient Care team information Care Team Personnel Name: Not on Staff, PCP Position: [facility] Physician (General Medicine) Member Role: PCP Name: Suzan Swift DO Position: [facility] BUTTONHOLE MACHINE OPERATOR MD Member Role: Lifetime BUTTONHOLE MACHINE OPERATOR Physician Address: Address: [address] [place] [address] [address]- Care Team Related Persons Name: ZULLY CLIFTON Address: home [address] [place] [address] Name: WHIT CARTWRIGHT Name: LULA GUY Address: home [address] [place] [address] Name: PT STATES, NO ONE Name: KEIRY RIVER Address: home [address] [place] [address]
--- OUTSIDE RECORDS SUMMARY | 2022-09-13 10:32 | XMS_ITS | Continuity of Care Document ---
Author Name Unknown Organization [facility] Address [address] [place] [address]- Care Team Providers Care Resident Surgeon Name Role Phone Not on Staff, PCP Primary Care Physician Unavail able [place] [facility] [place] - 08/23/[address] [address]- Encounter Diagnosis Pyelonephritis(Final) - 08/23/20 Discharge Disposition: A-D/C Snf, Intermediate, or Nursing Home Fac Attending Physician: Joce Solano DO Admitting Physician: Joce Solano DO Referring Physician: Not on Staff, Referring MD [...] Accommodate D/C 2Early/Late Reason: Nursing Judgment Medications levoFLOXacin 750 mg oral tablet 1 tablet = 750 mg, By Mouth, Every 24 hours, for 6 days, # 6 tablet, 0 Refills, Acute 08/29/20 14:47:00 EDT, 08/23/20 14:47:00 EDT, Tablet, Partial fill upon patient request if the prescription is for a schedule II opioid drug. Start Date: 08/23/20 Stop Date: 08/29/20 Status: Ordered Naprosyn 375 mg oral tablet 1, tablet, By Mouth, 2 times a day, PRN, Maintenance, for pain, 08/23/20 14:21:00 EDT, Partial fillupon patient request if the prescription is for a schedule II opioid drug. Start Date: 08/23/20 Stop Date: 08/28/20 Status: Ordered Triple Antibiotic Apply, Topically, 2 times a day, Maintenance, 08/23/20 14:19:00 EDT, Partial fill upon patient request if the prescription is for a schedule II opioid drug. Start Date: 08/23/20 Stop Date: 08/27/20 Status: Ordered Tums 500 mg oral tablet, chewable 1,000 mg, 2, tablet, Chew, 3 times a day, PRN, Maintenance, as needed for dyspepsia, 08/23/20 14:20:00 EDT, Partial fill upon patient request if the prescription is for a schedule II opioid drug. Start Date: 08/23/20 Stop Date: 08/28/20 Status: Ordered Problem List Condition Effective Dates [...] recent to oldest [Reference Range]: 1 2 3 Oxygen Saturation [94-100 %] 100 % (08/23/20 3:04 PM) 100 % (08/23/20 12:44 PM) 100 % (08/23/20 12:40 PM) Pulse Rate [55-90 bpm] 84 bpm (08/23/20 3:04 PM) 90 bpm (08/23/20 12:44 PM) 82 bpm (08/23/20 12:40 PM) Blood Pressure [90-138/55-84 mm Hg] 116/71mm Hg (08/23/20 3:04 PM) 105/67mm Hg (08/23/20 12:44 PM) 114/63mm Hg (08/23/20 12:40 PM) Respiratory Rate [16-30 br/min] 12 br/min *L* (08/23/20 3:04 PM) 11 br/min *L* (08/23/20 12:44 PM) 17 br/min (08/23/20 12:40 PM) Temperature [96.8-100.4 DegF] 97.9 DegF (08/23/20 12:44 PM) 98.8 DegF (08/23/20 10:00 AM) Mode of Delivery (Oxygen) Room air (08/23/20 3:04 PM) Room air (08/23/20 12:44 PM) Room air (08/23/20 12:40 PM) Temperature Route Oral (08/23/20 12:44 PM) Oral (08/23/20 10:00 AM) Social History Social History Type Response Smoking Status Current every day el kwok entered on: 08/28/17 Sex
--- OUTSIDE RECORDS SUMMARY | 2022-09-13 10:32 | XMS_ITS | Continuity of Care Document ---
Author Name Unknown Organization [facility] Address [address] [place] [address]- Care Team Providers Care Third Mate Name Role Phone Not on Staff, PCP Primary Care Physician Unavail able Encounter [facility] [place] Date(s): 05/11/22 - 06/19/[address] [address]- Attending Physician: Not on Staff, Attending MD [...] Personnel Name: Not on Staff, PCP Position: [facility] Physician (General Medicine) Member Role: PCP Name: Suzan Swift DO Position: [facility] TRANSITIONS MANAGER MD Member Role: Lifetime TRANSITIONS MANAGER Physician Address: Address: [address] [place] [address] [address]- Care Team Related Persons Name: ZULLY CLIFTON Address: home [address] [place] [address] Name: WHIT CARTWRIGHT Name: LULA GUY Address: [address] [place] [address] Name: PT STATES, NO ONE Name: KEIRY RIVER Address: home [address] [place] [address]
--- OUTSIDE RECORDS SUMMARY | 2022-09-13 10:32 | XMS_ITS | Continuity of Care Document ---
Author Name Unknown Organization [facility] Address [address] [place] [address]- Care Team Providers Care Precision Structural Metal Fitter Name Role Phone Not on Staff, PCP Primary Care Physician Unavail able Encounter [facility] [place] Date(s): 04/12/22 - 06/03/[address] [address]- Attending Physician: Not on Staff, Attending MD [...] Soft Stop, 06/19/21 12:56:00 EST, DIS Tablet, [id number], Partial fill upon patient request if [...] Suzan Swift DO Position: [facility] LEATHER STRETCHER MD Member Role: Lifetime LEATHER STRETCHER Physician Address: Address: [address] [place] [address] [address]- Care Team Related Persons Name: ZULLY CLIFTON Address: home [address] [place] [address] Name: WHIT CARTWRIGHT Name: LULA GUY Address: [address] [place] [address] Name: PT STATES, NO ONE Name: KEIRY RIVER Address: home [address] [place] [address]
--- OUTSIDE RECORDS SUMMARY | 2022-09-13 10:32 | XMS_ITS | Continuity of Care Document ---
Author Name Unknown Organization [facility] Address [address] [place] [address]- Care Team Providers Care Hosting Engineer Name Role Phone Not on Staff, PCP Primary Care Physician Unavail able Encounter [facility] Date(s): 07/22/22 - 08/21/22 [facility] [address] [place] [address] Attending Physician: Teresa Chandra Admitting Physician: AdmTeresa knutson Referring Physician: Admtr, Teresa Allergies, Adverse Reactions, Alerts Substance Reaction Severity [...] opioid drug. Start Date: 06/23/22 Status: Ordered Multivitamins with Folic Acid 1 [...] of PTSD (post-traumatic stress disorder) Confirmed Active Rubella non-immune status, antepartum Confirmed Active MDQ Negative 1 Confirmed Active Tobacco abuse Confirmed Active Hepatitis C Confirmed Active 1MDQ neg Social History Social History Type Response Smoking Status 10 or more cigarette s (1/2 pack or more)/day in last 30 days entered on: 06/23/22 Sex Patient Care team information Care Team Personnel Name: Not on Staff, PCP Position: [facility] Physician (General Medicine) Member Role: PCP Name: Suzan Swift DO Position: [facility] PROCESS MANAGER MD Member Role: Lifetime PROCESS MANAGER Physician Address: Address: [address] [place] [address] [address]- Care Team Related Persons Name: ZULLY CLIFTON Address: [address] [place] [address] Name: WHIT CARTWRIGHT Name: LULA GUY Address: [address] [place] [address] Name: PT STATES, NO ONE Name: KEIRY RIVER Address: home [address] [place] [address]
--- OUTSIDE RECORDS SUMMARY | 2022-09-13 10:32 | XMS_ITS | Continuity of Care Document ---
Author Name Unknown Organization [facility] Address [address] [place] [address]- Care Team Providers Care Apartment Rental Clerk Name Role Phone Not on Staff, PCP Primary Care Physician Unavail able Encounter [facility] Date(s): 07/06/22 - 09/04/22 [facility] [address] [address]- Attending Physician: Bird ZACARIAS [OB]Mariza Admitting Physician: Bird ZACARIAS [OB], Mariza Quiñonez Allergies, Adverse Reactions, Alerts Substance Reaction Severity [...] Personnel Name: Not on Staff, PCP Position: [facility] Physician (General Medicine) Member Role: PCP Name: Suzan Swift DO Position: [facility] DOWEL SETTING MACHINE OPERATOR MD Member Role: Lifetime DOWEL SETTING MACHINE OPERATOR Physician Address: Address: [address] [place] [address] [address]- Care Team Related Persons Name: ZULLY CLIFTON Address: [address] [place] [address] Name: WHIT CARTWRIGHT Name: LULA GUY Address: [address] [place] [address] Name: PT STATES, NO ONE Name: KEIRY RIVER Address: home [address] [place] [address]
--- OUTSIDE RECORDS SUMMARY | 2022-09-13 10:32 | XMS_ITS | Continuity of Care Document ---
Author Name Unknown Organization [facility] Address [address] [place] [address]- Care Team Providers Care Wire Roller Name Role Phone Not on Staff, PCP Primary Care Physician Unavail able Encounter [facility] Date(s): 04/09/22 - 05/09/[address] [address] Allergies, Adverse Reactions, Alerts Substance Reaction Severity [...] Response Smoking Status Current every day sm rissa entered on: 08/28/17 Sex Patient Care team information Care Team Personnel Name: Not on Staff, PCP Position: [facility] Physician (General Medicine) Member Role: PCP Name: Suzan Swift DO Position: [facility] PAD CUTTER MD Member Role: Lifetime PAD CUTTER Physician Address: Address: [address] [place] [address] [address]- Care Team Related Persons Name: ZULLY CLIFTON Address: [address] [place] [address] Name: WHIT CARTWRIGHT Name: LULA GUY Address: [address] [place] [address] Name: PT STATES, NO ONE Name: KEIRY RIVER Address: home [address] [place] [address]
--- OUTSIDE RECORDS SUMMARY | 2022-09-13 10:32 | XMS_ITS | Continuity of Care Document ---
Author Name Unknown Organization [facility] Address [address] [place] [address]- Care Team Providers Care Prepper Name Role Phone Not on Staff, PCP Primary Care Physician Unavail able Encounter [facility] [place] Date(s): 06/02/22 - 07/02/[address] [address]- Allergies, Adverse Reactions, Alerts Substance Reaction Severity [...] 10:34:00 EST... Start Date: 06/23/22 Status: Ordered Problem List Condition Confirmation Course Effective Dates Status H ealth Status Informant History of GBS bacteriuria Confirmed Active History of Constipation Confirmed Active Depression Confirmed Active S/P ureteral reimplantation Confirmed Active History of IV drug abuse on Methadone Jun 2022 Confirmed Active History of PTSD (post-traumatic stress disorder) Confirmed Active - Patient not seen by OB since 11/2018, if she presents to ED please contact Consuelo Mccain ObGyjose Confirmed Active Rubella non-immune status, antepartum Confirmed Active MDQ Negative 1 Confirmed Active Tobacco abuse Confirmed Active Hepatitis C Confirmed Active 1MDQ neg Social History Social History Type Response Smoking Status 10 or more cigarette s (1/2 pack or more)/day in last 30 days entered on: 06/23/22 Sex Patient Care team information Care Team Personnel Name: Not on Staff, PCP Position: [facility] Physician (General Medicine) Member Role: PCP Name: Suzan Swift DO Position: [facility] BULB BRANDER MD Member Role: Lifetime BULB BRANDER Physician Address: Address: [address] [place] [address] [address]- Care Team Related Persons Name: ZULLY CLIFTON Address: [address] [place] [address] Name: WHIT CARTWRIGHT Name: LULA GUY Address: [address] [place] [address] Name: PT STATES, NO ONE Name: KEIRY RIVER Address: home [address] [place] [address]
--- OUTSIDE RECORDS SUMMARY | 2022-09-13 10:32 | XMS_ITS | Continuity of Care Document ---
Author Name Unknown Organization [facility] Address [address] [place] [address]- Care Team Providers Care Information Writer Name Role Phone Not on Staff, PCP Primary Care Physician Unavail able Encounter [facility] Date(s): 07/14/22 - 08/13/22 [facility] [address] [address]- Allergies, Adverse Reactions, Alerts Substance Reaction Severity [...] 13:22:00 EST, 07/06/22 13:22:00 EST, Patch, [id number], Partial fill upon patient request if the [...] Personnel Name: Not on Staff, PCP Position: [facility] Physician (General Medicine) Member Role: PCP Name: Suzan Swift DO Position: [facility] RING BARKER OPERATOR MD Member Role: Lifetime RING BARKER OPERATOR Physician Address: Address: [address] [place] [address]- Care Team Related Persons Name: ZULLY CLIFTON Address: [address] [place] [address] Name: WHIT CARTWRIGHT Name: LULA GUY Address: home [address] [place] [address] Name: STATES, NO ONE Name: KEIRY RIVER Address: home [address] [place] [address]
--- OUTSIDE RECORDS SUMMARY | 2022-09-13 10:32 | XMS_ITS | Continuity of Care Document ---
Author Name Unknown Organization [facility] Address [address] [place] [address]- Care Team Providers Care Wrapper Layer And Examiner Soft Work Name Role Phone Not on Staff, PCP Primary Care Physician Unavail able [facility] [place] Date(s): 06/19/21 - 06/19/[address] [address]- Encounter Diagnosis Dental abscess(Final) - 06/19/21 Discharge Disposition: A-D/C AMA Attending Physician: Chiqui Peguero MD Admitting Physician: Chiqui Peguero MD Referring Physician: Not on Staff, Referring [...] Accommodate D/C 2Early/Late Reason: Nursing Judgment Medications clindamycin 300 mg oral capsule 1 capsule = 300 mg, By Mouth, Every 6 hours, for 10 days, # 40 capsule, 0 Refills, Acute 06/29/21 12:55:00 EST, 06/19/21 12:55:00 EST, Capsule, [id number], Partial fill upon patient request if the prescription is for a schedule II opioid drug.... Start Date: 06/19/21 Stop Date: 06/29/21 Status: Ordered Dilaudid Inj 1 mg, Injection, IV Push Slowly, Every 30 minutes for 3 doses/times, PRN for Pain , Moderate, STAT,06/19/21 8:02:00 EST, Stop date Limited # of times Start Date: 06/19/21 Stop Date: 06/19/21 Status: Completed Methadone = 55 mg, By Mouth, 0 [...] Date: 06/19/21 Status: Ordered Problem List Condition Effective Dates Status Health Status Inform ant GBS bacteriuria(Confirmed) Active Constipation(Confirmed) Active Depression(Confirmed) Active S/P ureteral reimplantation(Confirmed) Active IV drug abuse(Confirmed) Active PTSD (post-traumatic stress disorder)(Confirmed) Active - Patient not se en by OB since 11/2018, if she presents to ED please contact Consuelo Mccain ObGyjose(Confirmed) Active MDQ Negative(Confirmed) 1 Active Tobacco abuse(Confirmed) Active Hepatitis C(Confirmed) Active 1MDQ neg Vital Signs Most recent to oldest [Reference Range]: 1 2 3 Height 158 cm (06/19/21 1:01 PM) 158 cm (06/19/21 9:23 AM) 158 cm (06/19/21 8:06 AM) Weight 68 kg (06/19/21 1:01 PM) 68 kg (06/19/21 9:23 AM) 68 kg (06/19/21 8:06 AM) Oxygen Saturation [94-100 %] 99 % (06/19/21 1:01 PM) 98 % (06/19/21 11:08 AM) 97 % (06/19/21 9:23 AM) Pulse Rate [55-90 bpm] 94 bpm *H* (06/19/21 1:01 PM) 69 bpm (06/19/21 11:08 AM) 82 bpm (06/19/21 9:23 AM) Body Mass Index [18.5-24.99] 27.24 *H* (06/19/21 1:01 PM) 27.24 *H* (06/19/21 9:23 AM) 27.24 *H* (06/19/21 8:06 AM) Blood Pressure [90-138/55-84 mm Hg] 149/95mm Hg *H* (06/19/21 1:01 PM) 129/80mm Hg (06/19/21 11:08 AM) 124/84mm Hg (06/19/21 9:23 AM) Respiratory Rate [16-30 br/min] 18 br/min (06/19/21 1:01 PM) 17 br/min (06/19/21 11:08 AM) 17 br/min (06/19/21 9:28 AM) Temperature [96.8-100.4 DegF] 98.5 DegF (06/19/21 1:01 PM) 98.5 DegF (06/19/21 11:08 AM) 98.1 DegF (06/19/21 9:23 AM) Mode of Delivery (Oxygen) Room air (06/19/21 1:01 PM) Room air (06/19/21 11:08 AM) Room air (06/19/21 9:23 AM) Blood pressure sites Arm, left (06/19/21 11:08 AM) Arm, right (06/19/21 9:23 AM) Arm, left (06/19/21 8:06 AM) Temperature Route Oral (06/19/21 1:01 PM) Oral (06/19/21 11:08 AM) Oral (06/19/21 9:23 AM) Dry Weight 68 kg (06/19/21 1:01 PM) 68 kg (06/19/21 9:23 AM) 68 kg (06/19/21 8:06 AM) Social History Social History Type Response Smoking Status Current every day el kwok entered on: 08/28/17 Sex
--- OUTSIDE RECORDS SUMMARY | 2022-09-13 10:32 | XMS_ITS | Continuity of Care Document ---
Author Name Unknown Organization [facility] Address [address] [place] [address]- Care Team Providers Care Vacuum Spindle Sander Name Role Phone Not on Staff, PCP Primary Care Physician Unavail able Encounter [id number] Date(s): 10/04/19 - 10/04/[address] [address]- [facility] Discharge Disposition: A-D/C Home Attending Physician: Meek Novoa MD Admitting Physician: Meek Novoa MD Referring Physician: Not on Staff, Referring [...] Accommodate D/C 2Early/Late Reason: Nursing Judgment Medications No Known Medications Problem List Condition Effective Dates Status Health Status Inform ant GBS bacteriuria(Confirmed) Active Constipation(Confirmed) Active Depression(Confirmed) Active S/P ureteral reimplantation(Confirmed) Active IV drug abuse(Confirmed) Active PTSD (post-traumatic stress disorder)(Confirmed) Active - Patient not se en by OB since 11/2018, if she presents to ED please contact Consuelo Mccain ObGyn(Confirmed) Active MDQ Negative(Confirmed) 1 Active Tobacco abuse(Confirmed) Active Hepatitis C(Confirmed) Active 1MDQ neg Vital Signs Most recent to oldest [Reference Range]: 1 2 3 Height 158 cm (10/04/19 8:47 AM) Weight 56.5 kg (10/04/19 8:47 AM) Oxygen Saturation [94-100 %] 98 % (10/04/19 2:38 PM) 98 % (10/04/19 8:47 AM) Pulse Rate [55-90 bpm] 94 bpm *H* (10/04/19 2:38 PM) 71 bpm (10/04/19 8:47 AM) Blood Pressure [90-138/55-84 mm Hg] 115/70mm Hg (10/04/19 2:38 PM) 126/67mm Hg (10/04/19 8:47 AM) Respiratory Rate [16-30 br/min] 19 br/min (10/04/19 3:20 PM) 17 br/min (10/04/19 2:38 PM) 20 br/min (10/04/19 8:47 AM) Temperature [96.8-100.4 DegF] 98.8 DegF (10/04/19 8:47 AM) Mode of Delivery (Oxygen) Room air (10/04/19 2:38 PM) Room air (10/04/19 8:47 AM) Blood pressure sites Arm, right (10/04/19 2:38 PM) Arm, right (10/04/19 8:47 AM) Temperature Route Temporal (10/04/19 8:47 AM) Dry Weight 56.5 kg (10/04/19 8:47 AM) Weight Obtained Via Patient/family state d (10/04/19 8:47 AM) Dry Weight Obtained Via Patient/family s tated (10/04/19 8:47 AM) Social History Social History Type Response Smoking Status Current every day el kwok entered on: 08/28/17 Sex
--- OUTSIDE RECORDS SUMMARY | 2022-09-13 10:32 | XMS_ITS | Continuity of Care Document ---
Author Name Unknown Organization [facility] Address [address] [place] [address]- Care Team Providers Care Mule Operator Name Role Phone Not on Staff, PCP Primary Care Physician Unavail able Encounter [facility] [place] Date(s): 05/20/22 - 06/20/[address] [address]- Attending Physician: Not on Staff, Attending MD Referring Physician: Not on Staff, Referring [...] day el kwok entered on: 08/28/17 Sex Patient Care team information Care Team Personnel Name: Not on Staff, PCP Position: [facility] Physician (General Medicine) Member Role: PCP Name: Suzan Swift DO Position: [facility] OUTSIDE LABORER MD Member Role: Lifetime OUTSIDE LABORER Physician Address: Address: [address] [place] [address] [address]- Care Team Related Persons Name: ZULLY CLIFTON Address: [address] [place] [address] Name: WHIT CARTWRIGHT Name: LULA GUY Address: [address] [place] [address] Name: PT STATES, NO ONE Name: KEIRY RIVER Address: home [address] [place] [address]
--- OUTSIDE RECORDS SUMMARY | 2022-09-13 10:32 | XMS_ITS | Continuity of Care Document ---
Author Name Unknown Organization [facility] Address [address] [place] [address]- Care Team Providers Care Turf And Grounds Supervisor Name Role Phone Not on Staff, PCP Primary Care Physician Unavail able [facility]counter [facility] Date(s): 07/09/22 - 08/08/22 [facility] [address] [address]- Allergies, Adverse Reactions, Alerts Substance Reaction Severity [...] 13:22:00 EST, 07/06/22 13:22:00 EST, Patch, [id number], Partial fill upon patient request if the [...] Personnel Name: Not on Staff, PCP Position: [facility] Physician (General Medicine) Member Role: PCP Name: Suzan Swift DO Position: [facility] WAX PUMPER MD Member Role: Lifetime WAX PUMPER Physician Address: Address: [address] [facility] [place] [address]- Care Team Related Persons Name: ZULLY CLIFTON Address: [address] [place] [address] Name: WHIT CARTWRIGHT Name: LULA GUY Address: home [address] [place] [address] Name: STATES, NO ONE Name: KEIRY RIVER Address: home [address] [place] [address]
--- OUTSIDE RECORDS SUMMARY | 2022-09-13 10:32 | XMS_ITS | Continuity of Care Document ---
Author Name Unknown Organization [facility] Address [address] [place] [address]- Care Team Providers Care Bead Filler Name Role Phone Not on Staff, PCP Primary Care Physician Unavail able Encounter [facility] Date(s): 07/08/22 - 08/21/22 [facility] [address] [place] [address] Attending Physician: Kelsie Castellon NP Admitting Physician: Kelsie Castellon NP Referring Physician: Pao ANDERSEN, TWYLA, Scarlet Orellana Allergies, Adverse Reactions, Alerts Substance Reaction Severity [...] Name: Not on Staff, PCP Position: [facility] Physician (General Medicine) Member Role: PCP Name: Suzan Swift DO Position: [facility] WASH TUB MACHINE OPERATOR MD Member Role: Lifetime WASH TUB MACHINE OPERATOR Physician Address: Address: [address] [place] [address] [address]- Care Team Related Persons Name: ZULLY CLIFTON Address: [address] [place] [address] Name: WHIT CARTWRIGHT Name: LULA GUY Address: [address] [place] [address] Name: PT STATES, NO ONE Name: KEIRY RIVER Address: home [address] [place] [address]
--- NOTE | 2022-09-13 11:09 | PC.NURSE ---
PT WAS ASSESSED BY THE PROVIDER DISCHARGED PLAN REVIEWD, FOLLOW UP WITH DENTAL
== END 2022-09-13 11:10 | disposition home or self-care (01) ==
PROVIDERS: Emergency Provider Emergency Medicine
DX: K04.7 Periapical abscess without sinus (principal); Z79.899 Other long term (current) drug therapy
CPT/HCPCS: 99282

== ENCOUNTER 2023-01-05 08:46 | Emergency (ER) | payer MEDICAID, SELFPAY ==
--- NOTE | ~2023-01-05 | US_ITS ---
EXAMINATION: US PELVIS CLINICAL INFORMATION: Left pelvic pain COMPARISON: CT abdomen and pelvis 01/20/2012. TECHNIQUE: Ultrasound of the pelvis is performed using both transabdominal and transvaginal transducers along with Doppler. Transvaginal imaging is performed due to inadequate visualization transabdominally. FINDINGS: Uterus: The uterus is anteverted and measures 9.4 x 4.4 x 6.2 cm. The double wall endometrial thickness is 12 mm. There is a single specular subendometrial reflector in the posterior fundus. The uterus is smooth in contour and has normal myometrial echogenicity. scar is seen in the anterior lower uterine segment. Adnexa: Both ovaries are visualized. There is normal color flow to the adnexa. There are normal arterial and venous spectral Doppler waveforms. There is no ovarian torsion. There is no pelvic ascites or fluid collection. Right ovary measures 3.5 x 2.1 x 2.1 cm. Left ovary measures 2.7 x 1.4 x 1.5 cm. US/US pelvic ovarian doppler IMPRESSION: No explanation for left pelvic pain. The left ovary appears normal. No evidence of ovarian torsion. Post changes anterior lower uterine segment. Single subendometrial specular reflector in the posterior fundus. This could possibly represent focal adenomyosis.
--- NOTE | ~2023-01-05 | US_ITS ---
EXAMINATION: US PELVIS CLINICAL INFORMATION: Left pelvic pain COMPARISON: CT abdomen and pelvis 01/20/2012. TECHNIQUE: Ultrasound of the pelvis is performed using both transabdominal and transvaginal transducers along with Doppler. Transvaginal imaging is performed due to inadequate visualization transabdominally. FINDINGS: Uterus: The uterus is anteverted and measures 9.4 x 4.4 x 6.2 cm. The double wall endometrial thickness is 12 mm. There is a single specular subendometrial reflector in the posterior fundus. The uterus is smooth in contour and has normal myometrial echogenicity. scar is seen in the anterior lower uterine segment. Adnexa: Both ovaries are visualized. There is normal color flow to the adnexa. There are normal arterial and venous spectral Doppler waveforms. There is no ovarian torsion. There is no pelvic ascites or fluid collection. Right ovary measures 3.5 x 2.1 x 2.1 cm. Left ovary measures 2.7 x 1.4 x 1.5 cm. US/US pelvic and transvaginal IMPRESSION: No explanation for left pelvic pain. The left ovary appears normal. No evidence of ovarian torsion. Post changes anterior lower uterine segment. Single subendometrial specular reflector in the posterior fundus. This could possibly represent focal adenomyosis.
[2023-01-05 08:53] VITALS: BP 121/82; PULSE 81; RESP 16; TEMP 37.1; O2SAT 98; BMI 28.7
--- OUTSIDE RECORDS SUMMARY | 2023-01-05 09:46 | XMS_ITS | Continuity of Care Document ---
Author Name Unknown Organization [facility] Address [address] [place] [address]- Care Team Providers Care Special Services Agent Name Role Phone Not on Staff, PCP Primary Care Physician Unavail able Encounter [facility] Date(s): 09/03/22 - 10/09/22 [facility] [address] [address]- Attending Physician: Bird ZACARIAS [OB], Mariza Quiñonez Admitting Physician: Bird ZACARIAS [OB], Mariza Quiñonez [...] Suzan Swift DO Position: [facility] CAREER TECHNICAL EDUCATION INSTRUCTOR MD Member Role: Lifetime CAREER TECHNICAL EDUCATION INSTRUCTOR Physician Address: Address: [address] [place] [address] [address]- Care Team Related Persons Name: ZULLY CLIFTON Address: home [address] [place] [address] Name: WHIT CARTWRIGHT Name: LULA GUY Address: home [address] [place] [address] Name: PT STATES, NO ONE Name: KEIRY RIVER Address: home [address] [place] [address]
--- OUTSIDE RECORDS SUMMARY | 2023-01-05 09:46 | XMS_ITS | Continuity of Care Document ---
Author Name Unknown Organization [facility] Address [address] [place] [address]- Care Team Providers Care Power Generation Turbine Room Operator Name Role Phone Not on Staff, PCP Primary Care Physician Unavail able Encounter [facility] Date(s): 07/06/22 - 10/31/22 [facility] [address] [address]- Attending Physician: Not on Staff, Attending MD [...] Personnel Name: Not on Staff, PCP Position: [facility] Physician (General Medicine) Member Role: PCP Name: Suzan Swift DO Position: [facility] COMMERCIAL ENERGY RATER MD Member Role: Lifetime COMMERCIAL ENERGY RATER Physician Address: Address: [address] [place] [address] [address]- Care Team Related Persons Name: ZULLY CLIFTON Address: home [address] [place] [address] Name: WHIT CARTWRIGHT Name: LULA GUY Address: [address] [place] [address] Name: PT STATES, NO ONE Name: KEIRY RIVER Address: home [address] [place] [address]
--- OUTSIDE RECORDS SUMMARY | 2023-01-05 09:46 | XMS_ITS | Continuity of Care Document ---
Author Name Unknown Organization [facility] Address [address] [place] [address]- Care Team Providers Care Bookkeeping Machine Operator Name Role Phone Not on Staff, PCP Primary Care Physician Unavail able Encounter [facility] Date(s): 11/11/22 - 12/18/22 [facility] [address] [address]- Attending Physician: Not on Staff, Attending MD Allergies, Adverse Reactions, Alerts Substance Reaction Severity Status Abilify Active Immunizations Given and Recorded Vaccine Date Status Refusal Reason Measles/Mumps/Rubella Virus Vaccine 11/18/22 Given tetanus/diphtheria/pertussis, acel(Tdap) 01/04/21 Given tetanus/diphtheria/pertussis, acel(Tdap) 04/23/16 [...] opioid drug. Start Date: 06/23/22 Status: Ordered Problem List Condition Confirmation Course Effective Dates Status H ealth Status Informant Depression Confirmed Active S/P ureteral reimplantation Confirmed Active History of IV drug abuse on Methadone Jun 2022 Confirmed Active History of PTSD (post-traumatic stress disorder) Confirmed Active Tobacco abuse Confirmed Active Hepatitis C Confirmed Active Social History Social History Type Response Smoking Status 10 or more cigarette s (1/2 pack or more)/day in last 30 days entered on: 06/23/22 Sex Patient Care team information Care Team Personnel Name: Not on Staff, PCP Position: [facility] Physician (General Medicine) Member Role: PCP Name: Suzan Swift DO Position: [facility] IRRIGATOR SPRINKLING SYSTEM MD Member Role: Lifetime IRRIGATOR SPRINKLING SYSTEM Physician Address: Address: [address] [place], [place] [address] [address]- Care Team Related Persons Name: ZULLY CLIFTON Address: [address] [place] [address] Name: SHANNON CLIFTON Address: [employer] Address: [address] [address] Name: WHIT CARTWRIGHT Name: LULA GUY Address: home [address] [place] [address] Name: AMADA ARTHUR Name: KEIRY RIVER Address: home [address] [place] [address]
--- OUTSIDE RECORDS SUMMARY | 2023-01-05 09:46 | XMS_ITS | Continuity of Care Document ---
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 [address]- Status: Pending Delivery Summary Delivery Summary Maternal Information ??Delivery Information ?Delivery Complications: ??None ?Blood Loss(ml): ??1500 mL ?Blood Loss - Quantitative: ??1652 mL ? Baby A ??Delivery Information ?Delivery Type: ??, low transverse ?Reason for : ??Abruption ? Priority: ??Code White ?Date, Time of : ??11/15/22 09:46:00 ?Delayed Cord Clamping: ??No ?Placenta Delivery Method: ??Assisted ?Placenta Appearance: ??Other: Abruption ?Placenta to Pathology: ??Yes ??Care Team ?Time NICU Team Called: ??11/15/22 09:44:00 ?? Information ? Outcome: ??Live ? Position: ??Right occiput anterior ? Weight: ??3.180 kg ? Score 1 minute: ??2 ? Score 5 minute: ??7 ? Score 10 minute: ??8 ?Transferred To: ??NICU ? Complications: ??Placental abruption ?Gender: ??Male ? Discharge Medications ???Acetaminophen (acetaminophen 325 mg oral tablet)???Docusate (docusate sodium 100 mg oral capsule)???Ibuprofen (ibuprofen 800 mg oral tablet)???Methadone???Multivitamin, ( Multivitamins with Folic Acid 1 mg oral tablet)???Oxycodone (oxyCODONE 5 mg oral tablet)???Sertraline (sertraline 50 mg oral tablet)???Simethicone (simethicone 80 mg oral tablet, chewable) Immunizations during Hospitalization Vaccine Date Status Measles/Mumps/Rubella Virus Vaccine 11/18/2022 Given tetanus/diphtheria/pertussis, acel(Tdap) 01/04/2021 Given tetanus/diphtheria/pertussis, acel(Tdap) 04/23/2016 Given influenza virus vaccine, inactivated 04/09/2016 Given Comments : Accommodate D/C influenza virus vaccine, inactivated 04/22/2010 Given Comments : Nursing Judgment Gardasil (oldterm) 01/13/2009 Given Gardasil (oldterm) 09/13/2008 Given Human Papillomavirus Vaccine 07/24/2008 Given Human Papillomavirus Vaccine 09/08/2006 Given Tet/Diphth/Acel, Pertussis (oldterm) 09/08/2006 Given Feeding Method No Results Patient Instructions Call your doctor if: you note fever of 100.4 or greater, heavy vaginal bleeding, foul-smelling vaginal discharge, difficulty or burning with urination, nausea and vomiting with inability to tolerate food, pain not controlled by your prescribed medications, redness/swelling/drainage at incision(s), shortness of breath or chest pain. ??- Do not drive while taking narcotics. Do not drive until cleared by your doctor. ??- Avoid lifting anything 10bs or greater for 2 weeks/cleared by doctor. ??- Do not put anything in the vagina. No intercourse, tampons, or douching until cleared by doctor. ??- Stairs are OK but avoid multiple trips and go slowly. ??- Walk as often as you are able. ??- Continue your stool softeners (examples: colace/docusate, senna, miralax) until no longer taking narcotics and stools are regular. ??- Shower as usual after 24 hours. Remove Steri-Strips when they start to peel off, or after 5 days. Do not scrub the incision. Pat the skin dry. * Sharif Ramirez DO: PERFORM Event Display: Discharge/Transfer Note Hospital Authored Date: [id number] Patient has decided to stay and will be discharged tomorrow, 11/19 * Sharif Ramirez DO: PERFORM Event Display: Discharge/Transfer Note Hospital Authored Date: [id number] Patient has now decided to be discharged and is appropriate for discharge.?? Incision healing well. * Mely HERNÁNDEZ, Janett: PERFORM Event Display: Patient Education/Instruction Authored Date: [id number] Inpatient Adult Discharge Instructions [address] [id number] Name: SHANNON CLIFTON : 1990 Visit: 11/15/2022 09:44:00 Current Date: 11/18/2022 19:50 Account: [id number] Inpatient Adult Discharge Instructions We would like to thank you for allowing us to assist you with your healthcare needs. The following includes patient education materials and information regarding your injury/illness. Our entire staffstrives to provide an excellent experience for our patients and their families. PLEASE ENSURE YOU FOLLOW-UP PER THE INSTRUCTIONS BELOW! ?? YOUR OPINION IS IMPORTANT TO US! Please complete the survey you may receive by mail or email. Your feedback will be used to make improvements to the healthcare experiences of our patients and their families. Surveys are administered by [employer] ?? If further treatment with your primary care physician or another doctor is recommended, it is important for you to keep the appointment. Call your primary care physician or return to the Emergency Department immediately if your condition worsens, fails to improve, or new symptoms develop. If you need to find a doctor, you can call [facility] for a referral at [phone] or toll free at [phone] or log in to [email or web address].. ?? You can view and manage your care through the patient portal or by using a health care jennifer of your choosing. [employer] is a website that allows you to securely view your medical information including your hospital discharge summary, office visit summaries, medications and follow-up visits. You can also request appointments, renew medications, and request access to your medical information using a health care jennifer of your choosing, or just ask a question. You can enroll at [email or web address] or register during your next office visit. You have been discharged from [facility], Patient Care Unit: [facility]. If you have any questions regarding these instructions after you leave, please call us and we will be happy to assist you. [facility] Your Care Team Attending Physician Sandra ZACARIAS, Ricardo Consulting Providers Jenny ZACARIAS, Ricardo Anthony MD Discharging Providers Sharif Ramirez DO Reason for Admission Primary , Abruption Your Diagnosis Placental abruption Major depressive disorder with single episode, remission status unspecified Hepatitis C virus infection without hepatic coma, unspecified chronicity Hemorrhage, immediate IV drug abuse hemorrhage Placental abruption care following delivery Opioid use disorder Restless legs Hemorrhage, immediate Oxygen desaturation Tests Performed Below is a partial list of the tests performed during your hospitalization. You may have had other tests and procedures not included in this list. Please discuss all test results with your provider. ALT Amphetamine Urine with Confirmation AST Barbiturate Urine with Confirmation Benzodiazepine Urine with Confirmation Buprenorphine Screen w/Confirm, Urine CBC Cocaine Urine with Confirmation Comprehensive Metabolic Panel Cord Blood Gas Creatinine Ethanol Urine Fentanyl Screen With Confirmation, Urine Fibrinogen Haptoglobin Hepatitis B Surface Antigen HIV Ab-Ag 4th Generation HOLD BLUE TUBE HOLD GEL TUBE X2 HOLD LAVENDER TUBE LDH Methadone Urine with Confirmation Opiates Urine with Confirmation Oxycodone Urine with Confirmation PCP Urine with Confirmation PROTIME PROFILE PT (INR) PTT CT Angio Chest CXR Portable Primary Care Provider Not on Staff, PCP Advance Directive Health Care Proxy on File No Patient refuses to discuss Discharge Vitals Temperature: 98.1 DegF Height: 157.5 cm Pulse Rate: 70 bpm Weight: 65.8 kg Respiratory Rate: 18 br/min Body Mass Index:??26.53 kg/m2??High Systolic Blood Pressure: 135 mm Hg Body surface area: 1.7 Diastolic Blood Pressure: 67 mm Hg ?? Oxygen Saturation: 95 % ?? Studies Pending All tests and labs ordered during this hospital stay have been completed unless listed below. Please discuss all pending results with your provider listed above in these instructions. ?? Benzodiazepines QN, Urine Toxicology (BENZODIAZEPINES, QN, URINE) CBC (COMPLETE BLOOD COUNT) COVID-19 (2019 Novel Coronavirus) PCR Fentanyl QN Urine Toxicology (FENTANYL,QN,URINE) Hepatitis C RNA PCR Quant Methadone Metab QN, Urine Toxicology (METHADONE METAB, QN, URINE) Opiates Expanded QN, Urine Toxicology (OPIATES EXPANDED, QN, URINE) Pathology Tissue Request () RBCs on Hold Type and Screen, Use Hold Lavender What to do next Instructions From Your Doctor Call your doctor if: you note fever of 100.4 or greater, heavy vaginal bleeding, foul-smelling vaginal discharge, difficulty or burning with urination, nausea and vomiting with inability to tolerate food, pain not controlled by your prescribed medications, redness/swelling/drainage at incision(s), shortness of breath or chest pain. ??- Do not drive while taking narcotics. Do not drive until cleared by your doctor. ??- Avoid lifting anything 10bs or greater for 2 weeks/cleared by doctor. ??- Do not put anything in the vagina. No intercourse, tampons, or douching until cleared by doctor. ??- Stairs are OK but avoid multiple trips and go slowly. ??- Walk as often as you are able. ??- Continue your stool softeners (examples: colace/docusate, senna, miralax) until no longer taking narcotics and stools are regular. ??- Shower as usual after 24 hours. Remove Steri-Strips when they start to peel off, or after 5 days. Do not scrub the incision. Pat the skin dry. Discharge Orders Scheduled Follow-Up Appointments Tuesday 3:00 PM EDT ?? With: Mellisa Avila DO Where: [facility] - [facility] Processing [address] [place] [address]- Status: Pending Tuesday 9:00 AM EDT ?? With: Melissa More MD Where: [facility] [address] [place] [address]- Status: Pending Discharge Medications SHANNON CLIFTON :1990 Visit Date:11/15/2022 Medications: Please continue your medications until treatment is completed or stopped by your provider. Medications not listed below should be discontinued. Discuss any questions related to medications with your provider. What How Much When Instructions Next Dose New Acetaminophen (acetaminophen 325 mg oral tablet) 650 Milligram Oral Every 4 hours (1-3), may give 325mg per patient preference and re-dose with 325mg within 4 hours, if needed. ?? Patient should only receive a total of 650mg of Acetaminophen every 4 hours. ?? Pickup at [facility]/pharmacy #2070 New Docusate (docusate sodium 100 mg oral capsule) 1 capsule Oral Twice a day Pickup at [facility]/pharmacy #2070 New Ibuprofen (ibuprofen 800 mg oral tablet) 800 Milligram Oral Every 8 hours (4-6), may give 400mg per patient preference and re-dose with 400mg within 8 hours, if needed. ?? Patient should only receive a total of 800mg of Ibuprofen every 8 hours. ?? Pickup at [facility]/pharmacy #2070 New Oxycodone (oxyCODONE 5 mg oral tablet) 5 Milligram Oral Every 3 hours as needed for Pain , Severe (7-10) ?? Pickup at [facility]/pharmacy #2071 New Simethicone (simethicone 80 mg oral tablet, chewable) 80 Milligram Chew 3 times a day as needed for Gas Pickup at [facility]/pharmacy #2071 Unchanged Methadone See instructions Methadone 105 mg in am Methadone 25 mg po in pm ?? Unchanged Multivitamin, ( Multivitamins with Folic Acid 1 mg oral tablet) 1 tab(s) Oral Daily Unchanged Sertraline (sertraline 50 mg oral tablet) 1 tab(s) Oral Daily Pharmacy Information [facility]/pharmacy #[id number]: [address], [place] [id number] [phone] Test Results Below is a partial list of the most recent Laboratory test results done prior to this discharge. You may have had other tests and procedures not included in this list. Please discuss all test resultswith your provider. Antibody Screen - Negative (11/15/2022) Blood Type - O Positive (11/15/2022) Est Creatinine Clearance - 109.46 mL/min (11/16/2022) RBC Available - RE (11/17/2022) RBC Unit ID - [id number] (11/17/2022) ALT (11/15/2022) ???ALT (SGPT) - 8 units/L Amphetamine Urine with Confirmation (11/15/2022) ???Amphetamine Screen, Urine - NONE DETECTED AST (11/15/2022) ???AST (SGOT) - 24 units/L Barbiturate Urine with Confirmation (11/15/2022) ???Barbiturate Screen, Urine - NONE DETECTED Benzodiazepine Urine with Confirmation (11/15/2022) ???Benzodiazepine Screen, Urine - POSITIVE Buprenorphine Screen w/Confirm, Urine (11/15/2022) ???Buprenorphine Screen with Reflex, Urine - NONE DETECTED CBC (11/17/2022) ???WBC - 14.5 k/mm3???RBC - 2.89 m/mm3???Hgb - 8.5 Gm/dL???Hct - 26.4 %???MCV - 91.3 femtoliters???MCH - 29.4 pg???MCHC - 32.2 g/dL???Platelet Count - 227 k/mm3???RDW-SD - 50.8 femtoliters???MPV - 10.5 femtoliters???Nucleated RBC (Automated) - 0.0 #/100 WBC'S???Abs. NRBC - 0.0 k/mm3 Cocaine Urine with Confirmation (11/15/2022) ???Cocaine Metabolite Screen, Urine - NONE DETECTED Comprehensive Metabolic Panel (11/16/2022) ???Sodium - 137 mmol/L???Potassium - 4.3 mmol/L???Chloride - 105 mmol/L???Bicarbonate Level - 23 mmol/L???Anion Gap - 9???Glucose Level - 97 mg/dL???BUN - 10 mg/dL???Creatinine-Blood - 0.6 mg/dL???Estimated GFR Creatinine - 125 ML/MIN/1.73 M2???Calcium - 7.2 mg/dL???Protein, Total - 4.6 Gm/dL???Albu min - 2.8 Gm/dL???AG Ratio - 1.6???Alkaline Phosphatase - 303 units/L???AST (SGOT) - 39 units/L???ALT (SGPT) - 10 units/L???Bilirubin, Total - 0.3 mg/dL Cord Blood Gas (11/15/2022) ? ?pH - 6.99? ?pCO2 - 90 mm Hg? ?pO2 - <20 mm Hg? ?Bicarbonate, Estimated - 21 mmol/L? ?SpecimenType - Blood Gas - CORD BLOOD Creatinine (11/15/2022) ???Creatinine-Blood - 0.5 mg/dL???Estimated GFR Creatinine - 131 ML/MIN/1.73 M2 Ethanol Urine (11/15/2022) ???Urine Alcohol - NONE DETECTED Fentanyl Screen With Confirmation, Urine (11/15/2022) ???Fentanyl Screen, Urine Result - POSITIVE Fibrinogen (11/16/2022) ???Fibrinogen - 329 mg/dL Haptoglobin (11/15/2022) ???Haptoglobin - 44 mg/dL Hepatitis B Surface Antigen (11/17/2022) ???Hepatitis B Surface Antigen - NEGATIVE HIV Ab-Ag 4th Generation (11/17/2022) ???HIV 4th Generation Ab-Ag Result - NEGATIVE HOLD BLUE TUBE (11/15/2022) ???Hold Blue Top - SPECIMEN DISCARDED AFTER 4 HOURS. HOLD GEL TUBE X2 (11/15/2022) ???Hold Gel Top - SPECIMEN DISCARDED AFTER 1 WEEK???Hold Gel Top 2 - SPECIMEN DISCARDED AFTER 1 WEEK HOLD LAVENDER TUBE (11/15/2022) ???Hold Lavender Top - SPECIMEN DISCARDED AFTER 24 HOURS. LDH (11/15/2022) ???LDH - 208 units/L Methadone Urine with Confirmation (11/15/2022) ???Methadone Screen, Urine - POSITIVE Opiates Urine with Confirmation (11/15/2022) ???Opiate Screen, Urine - POSITIVE Oxycodone Urine with Confirmation (11/15/2022) ???Oxycodone Screen, Urine - POSITIVE PCP Urine with Confirmation (11/15/2022) ???PCP Screen, Urine - NONE DETECTED PROTIME PROFILE (11/15/2022) ???INR - 0.9???Protime (PT) - 9.7 seconds PT (INR) (11/16/2022) ???INR - 0.9???Protime (PT) - 9.8 seconds PTT (11/16/2022) ???APTT - 27.8 seconds Immunizations This Visit Given Vaccine Date Measles/Mumps/Rubella Virus Vaccine 11/18/2022 Allergies (NKA means No Known Allergies) Abilify Problems Active Problems??(17) ADHD?? Depression?? Developmental delay?? echogenic intracardiac focus on ultrasound?? Hepatitis C?? History of Constipation?? History of IV drug abuse ??on Methadone Jun 2022?? History of PTSD (post-traumatic stress disorder)?? MDQ Negative?? Nulliparous?? Oppositional Defiant Disorder? PTSD?? Rubella non-immune status, antepartum?? S/P ureteral reimplantation?? Social hx?? Tobacco abuse?? Education Materials Below is the list of Educational Leaflet Providered with your Discharge Instructions. OB PP Warning Signs?? OB PP [facility]- Discharge Instructions?? OB PP Warning Signs?? OB PP [facility] Instructions?? Valuables and Belongings I fully understand and agree that [facility] accepts no responsibility for all my personal property including clothing, toilet articles, radios, jewelry, dentures, hearing aids, rings, money, or any other property that is in my possession or is brought to me after admission. I understand certain valuables may be placed in a hospital safe for a short period of time. I understand that the hospital is not liable for loss or damage due to accident, fire, or other natural occurrence while said property is in the safe. I accept full responsibility for any personal property that I keep with me, and will not hold the hospital responsible in case of loss or disappearance. I acknowledge that i have been encouraged to send valuables and belongings home. ? Other Discharge Information ? Pulmonary Rehab Status?? Pulmonary Rehab Discharge Status?? Respiratory Rate: 18 br/min ? Common Emergency Awareness Tips IS IT A STROKE? Act FAST and Check for these signs: FACE Does the face look uneven? ARM Does one arm drift down? SPEECH Does their speech sound strange? TIME Call at any sign of stroke ?? Heart Attack Signs Chest discomfort: Most heart attacks involve discomfort in the center of the chest and lasts more than a few minutes, or goes away and comes back. It can feel like uncomfortable pressure, squeezing, fullness or pain. Discomfort in upper body: Symptoms can include pain or discomfort in one or both arms, back, neck, jaw or stomach. Shortness of breath: With or without discomfort. Other signs: Breaking out in a cold sweat, nausea, or lightheaded. Remember, MINUTES DO MATTER. If you experience any of these heart attack warning signs, call to get immediate medical attention! ?? Smoking can increase your chances of developing chronic health problems and can cause harmful effects to other family members in your house. If you smoke, you are strongly encouraged to quit. Please call [facility] [facility] at [phone] or [phone] ([phone]) or log in to [email or web address] for referrals to smoking cessation programs. ?? 729 Suicide & Crisis Lifeline is available 27/12 if you or someone you know needs to find a reason to keep living. By calling 126 you'll be connected to a skilled, trained counselor at a crisis center in your area. INPATIENT DISCHARGE INSTRUCTIONS SIGNATURE PAGE SHANNON CLIFTON Location:[facility] Registration Date and Time:11/15/2022 09:44 EDT Primary Care Physician: Not on Staff, PCP Attending Physician: Ricardo Flores MD, I SHANNON CLIFTON, have received the above patient education materials/instructions and have verbalized understanding. If ambulance or transport services are being used I further acknowledge being given a choice of service. ?? If you need to contact me, please call me at this number: . Patient/Customer Development Manager Name: Patient/Customer Development Manager Signature: Relationship to Patient: Witness Name/Signature: Date: * Janett Boone RN: PERFORM Event Display: Patient Education Leaflets Authored Date: [id number] OB PP Warning Signs ?? 222 Warning Signs Mom - Warning Signs of Problems to Notify Your Doctor or Mechanic Insulator of: ??? Heavy vaginal bleeding (soaking a pad every hour with bright red blood). ??? Large clots the size of an orange or so. ??? A temperature greater than or equal to 100.6F especially if accompanied by painful, frequent urination, lower abdominal pain with a foul smell to vaginal flow, a red hard hot area on breast that could indicate a breast infection. ??? Severe headaches, visual changes such as seeing spots or blurred vision. ??? Extreme back pain. ??? Pain in the back of your legs that is tender to the touch. ??? Breathing difficulties. ??? Signs of depression include: loss of interest in your baby, weepiness, weight loss, exhaustion, feeling of being overwhelmed or anxious. T his is a chemical imbalance that needs medical treatment. Many women do however experience baby blues which is a temporary feeling of weepiness or anxiety which goes away with some good old T.L.C and sleep. Having a baby is a wonderful experience but sleep deprivation, hormone changes and a life style change, can make the best of us have an off day. If these feelings last for a prolonged lengthof time, or begin to affect your appetite, or your ability to sleep, call your doctor or diesel locomotive firer/fireman. - Warning Signs to notify your digital account director of: ??? Most babies develop a small amount of jaundice (a yellowish skin color) in the face and upper chest, by about 3 days of age. If the yellow color extends below the baby's belly or if the baby is very sleepy and not feeding well, call your digital account director. ??? A rectal temperature of 100.4F could be a sign of infection. ??? Projectile vomiting that continues with each feeding could indicate reflux or a problem with the formula. ??? Extreme sleepiness or very fussy. ??? Cold symptoms with nasal stuffiness, especially if the baby is having difficulty feeding. ??? Blue or dusky skin color. ??? Constipation with hard stools. ?? * Janett Boone RN: PERFORM Event Display: Patient Education Leaflets Authored Date: [id number] OB PP [facility]- Discharge Instructions ?? 209 Discharge Care Instructions for the New Mom and Baby Please take a few moments to read through these helpful instructions before you leave the hospital.?? Your nurse will be glad to answer any questions you may have.?? You can also find this and more information throughout the purple Becoming a Family booklet, [facility] Beginnings Guide and the Consultation Services Guide given to you after the of your baby.?? You may also phone our nurses stations if you have further questions.?? [facility]:?? First Floor ([phone]), Second Floor ([phone]).?? Please call your provider if you have any questions or concerns?? before your next appointment. For ongoing support please ???Like?? us on our Facebook page ???[facility]?? andsign up for our email newsletter at [email or web address].?? News and information will besent to you until your baby???s third birthday. Instructions for the New Mother Activity: For the next 2 weeks at home ??? no heavy lifting, avoid unnecessary stair climbing, and no driving(especially if you are taking medicine that may make you sleepy or feel that you are sleep deprived).?? For the next 4-6 weeks - no tampons, no douches, no sexual intercourse. Use your paula bottle to rinse your perineum until your vaginal flow stops.?? If you have stitches in your bottom, they generally dissolve within 7-10 days.?? Apply Tucks/witch paz pads until your soreness subsides.?? Use your bathroom at home every 3 to 4 hours, rinse, and change your pads. Warm showers feel great on achy muscles, sore backs and sore bottoms. Exercise: Walking is the best form of exercise.?? Wait until your follow up appointment with your provider in4-6 weeks before engaging in more strenuous activity. Diet: Drink plenty of fluids to avoid constipation and to help support your recovery. Eat plenty of iron rich foods such as red meat, iron fortified cereals like Total and Cream of Wheat, raisins, prunes, greens and spinach.?? These will help to build your blood count back up as all women lose some blood after delivery.?? Also add foods rich in Vitamin C such as strawberries, oranges, papayas, kale and tom peppers. Continue to take your vitamins if you are .?? If you are not follow the instructions of your provider.?? If you were prescribed iron supplements such as ferrous sulfate, it is important to continue these until your doctor or diesel locomotive firer/fireman tells you to stop. Breast Care for Nursing Mothers: Wear a comfortable fitting, supportive nursing bra.?? An underwire bra is not recommended. Express drops of breast milk and rub over your nipples and areola (brown area) before and after each feeding to protect and heal sensitive skin and then air dry your nipples.?? If you are experiencing any soreness, you may purchase nipple cream such as TenderCare or Lansinoh.?? Use it in the following manner:?? finish your feeding or pumping session, self-express colostrum onto your nipple and air dry, apply the nipple cream to the nipple and areola.?? Use only small amounts for best results. If you are having difficulty getting the baby to latch onto the breast due to swelling of the areola, try applying pressure with your fingers for a couple of minutes above and below your nipple and walk your fingers outward softening the area and pushing the swelling away.?? This technique is knownas reverse pressure softening.?? For demonstrations of this and other techniques such as the Earling Hand Expression technique, please refer to the resources section of the Consultation Services Guide that you received from services. When your milk first comes in, usually within 3 to 5 days after delivery, you may experience engorgement.?? Your breasts may become swollen and very tender.?? Cold compresses work great to help with discomfort and reduce swelling. It will get better in a couple of days.?? Continue to nurse your baby frequently.?? Call [facility]???s Consultation Service at [phone], press 1 to schedule an outpatient appointment or press 3 and a sql server consultant will return your call that day or the next if you call after 3pm. Breast Care for Bottle Feeding Mothers: Engorgement may occur within the first week after delivery.?? Your breasts may become hard and verytender.?? A cool compress of cleaned raw green cabbage leaves applied to the breast and changed as leaves wilt has been proven helpful for many women.?? Ice packs or frozen bags of peas also work nicely to ease the discomfort.?? The soreness will only last a couple of days. Keep your back turned to the water while showering to decrease breast stimulation. Wear a snug fitting bra such as a sports bra. Incision Care Following Tubal or Section: You may shower as directed by your doctor or diesel locomotive firer/fireman.?? Pat your incision dry with a clean towel.??You will not need a bandage after the first day. Call your doctor or diesel locomotive firer/fireman with any signs of infection such as a hard, hot swollen tender incision, especially if the skin around the incision looks pink or red.?? Yellow drainage with an odor may also be a sign of infection to report. Call your doctor or diesel locomotive firer/fireman if the incision begins to separate. If you have steri-strips on the incision, they will likely fall off in the first week.?? If they have not fallen off by 10 days after delivery, you may remove them. Control: Your doctor or diesel locomotive firer/fireman will discuss control methods with you when you are discharged from thespital or at your checkup.?? Be sure to let your provider know if you are . You had a Paragard IUD placed on .?? This control method is effective for 10 years. You had a Liletta placed on .?? This control method is effective for up to 5 years. You had a Nexplanon placed on .?? This control method is effective for up to 3 years. You received a Depo Provera injection on .?? This control method is effective as longas you repeat it every 3 months.?? Schedule your next dose before . You have a prescription for control pills .?? It is important to take a pill everyday at around the same time of day for effective control protection.?? Pain Management: Cramping after is common and increases in strength with each baby you have.?? If you experience painful cramps, and have no allergies to acetaminophen (Tylenol) or ibuprofen (Motrin), you may continue to take these medications as you did in the hospital.?? Ibuprofen is also helpful with back aches following epidurals, perineal pain following a vaginal delivery, and moderate incisional pain after a section or a tubal ligation.?? If you experience gas distention, especially after surgery, you may take an over the counter medication called simethicone.?? Take these chewable tablets 4 times a day as needed and directed on the package.?? Keep moving.?? Walking or rocking in a chair, will help to move the gas along.?? Nguyễn tea made with heated nguyễn rusty (instead of water) and a tea bag, stirred to dissolve carbonation (bubbles) is a helpful drink to soothe a gassy stomach. Warning Signs of a Problem to Notify Your Doctor or Mechanic Insulator of: Heavy vaginal bleeding ??? which is soaking a pad every hour with bright red blood. Passing blood clots the size of an egg or larger. An incision that is not healing. A temperature greater than or equal to 100.4 especially if accompanied by any of the following symptoms ??? painful, frequent urination; extreme back or flank pain; lower belly pain with a foul smellto your vaginal flow; a red hard hot area on your breast.?? Severe headache that does not go away after taking acetaminophen or ibuprofen.?? A headache that changes your vision, including seeing spots or blurring. Right sided upper abdominal pain along the rib cage area. Pain in your legs that is warm and tender to the touch. depression signs may include ??? loss of interest in your baby, weepiness, difficulty focusing, weight loss with no appetite, exhaustion, feeling overwhelmed or anxious, feelings of despair, or thoughts of harming yourself or your baby.?? These symptoms are important and should be discussed with your doctor or diesel locomotive firer/fireman. depression may develop over a period of time and needs prompt medical attention.?? Do not suffer in silence.?? In both the Becoming a Family booklet and the[facility] Guide there is a screening tool used to identify women at risk, called the Mears Scale which you have taken in the office prior to delivery and again during your hospital s sophia.?? Three to four weeks after your delivery, and before your check with your provider, take this test and share your results with your provider.?? Be sure to mention any score of 10 or more.?? Many women, and even some partners, may experience the ???baby blues?? .?? This is a state of feeling overwhelmed and weepy.?? Discomfort from childbirth, hormonal changes, exhaustion, changes to your body and lifestyle are a few of the things that contribute to the highs and lows new parents go through.?? Don???t be afraid to ask your partner or family and friends for some help at home so you can get some rest and a few minutes to yourself.?? The blues will quickly pass. Personal Safety: Every person has the right to feel safe at home and live free from physical or emotional harm.?? Ifyou have suffered mental or physical abuse at home, you are not alone.?? There is help.?? Please call HOTLINE or the [employer] Program at [phone]. CARE Bathing: Give your baby a sponge bath until the cord falls off in about 1-3 weeks.?? It is not necessary to bathe your baby every day, usually every few days is sufficient. ??Keep the cord area dry.?? Some baby girls will have a small bloody vaginal discharge. No need to worry as this is normal. It is not necessary to use lotions on the baby???s skin.?? Powders and oils are not recommended.?? Babies often get rash on their skin which comes and goes quickly and does not require any special care.?? Diaper rash can be treated with a zinc oxide preparation such as Desitin or Balmex diaper cream. Circumcision Care: Your nurse will teach you how to care for your baby???s circumcision depending on the type of circumcision your doctor or diesel locomotive firer/fireman performed.?? Most circumcisions require A&D ointment for about 4-5 days.?? Be generous with the amount of A&D used as this will prevent the diaper from sticking when you go to change it. If a plastibell circumcision was done, the plastic ring around the penis will fall off in a week orso. Diapers: After the 1st??few days, the baby will start wetting more often.?? A breast fed baby will wet about6-8 times a day once mom???s milk comes in ??? usually day 4 or 5.?? This is a good sign that the baby is getting plenty to eat.?? You may notice an orangey-pink stain in the diaper which is normal for the first few days. The baby???s first bowel movements are sticky, black and tarry.?? As the baby starts to feed more often over the next couple of days, the stool will change to a seedy yellowish green color and eventually a loose mustard like stool for a breast fed baby and a more formed yellow stool for a bottle fed baby. your Baby: ??Congratulations on deciding to breastfeed your baby! You are providing your baby with the most nourishing food source on the planet, your breast milk.?? Cues such as rooting, suckling, licking and fussing may be telling you that your baby is ready to eat ??? and it is time to offer your breasts. The first weeks following the are a time for you and your baby to learn.?? The baby may be sleepy the first day after with 8 to 12 attempts ??? including 2 to 4 good feedings.?? Over the next couple of days the baby will become more wakeful, feed 8 to 12 times a day and have more wet and poopy diapers.?? Cluster feeding, especially during the evening/night time, is normal. ?? Listen for swallowing sounds and watch the baby as they become more relaxed at the breast ??? both good signs that the baby is getting a good amount of milk.?? Refrain from smoking or eating edible marijuana while you are . Even though marijuana is legal in the state of [place],??it is harmful for your baby.??It stays in breast milk for along period of time and THC can be found in the baby's urine for up to 3 weeks. Second hand smoke can also increase the risk??of Sudden Infant Syndrome / SIDS. ?? Nursing is wonderful but many moms and babies have some degree of difficulty with at first. Don???t give up!?? There are many resources available to help you overcome these temporary problems. Your digital account director wants to hear from you if you are having difficulties and can offermany helpful suggestions.?? Some offices have consultants on staff. [facility]???s Consultation Service is available 7 days a week, 8am to 3pm at [phone].?? Press 1 to schedule an outpatient appointment.?? Press 3 to leave a message for the independent beauty consultant, a sql server consultant will return your call that day or the next if you call after 3pm. Support Groups ??? [facility] offers free gatherings for moms and babies weekly.?? All groups meet at the [facility] Women???s 2nd??floor, typically in the [facility] Conference Room, Tuesday???s 1 to 2 pm.?? Esthela [employer] is a worldwide organization with local community support, mother to mother support.?? Information can be found at https://www.lllusa.org Formula Feeding your Baby: Formula fed babies should eat every 3 to 4 hours.?? Look for cues that your baby is ready ??? such as rooting and sucking, licking and fussing.?? At the baby???s stomach is small and may take 10-15ml of formula.?? Over the next few days the baby will become more wakeful and feed more frequently, gradually increasing the amounts of formula taken at a feeding.?? Your digital account director will provideinstructions on how to increase the amount.?? Refer to packaging for formula preparation directions, depending on the type of formula you purchase ??? powder, concentrate or ready to feed. Infant Safety: ALWAYS REMEMBER - BACK TO SLEEP! Babies sleep safest on their backs.?? Every sleep.?? Every time.?? Every nap. Babies need a firm sleep surface with a tight fitting bottom sheet.?? NO loose bedding.?? NO pillows.?? NO bumper pads or rolls.?? NO heavy or fluffy blankets. NO stuffed toys. It is not safe for your baby to sleep in your bed, in a chair, or on a sofa.?? Your baby should notsleep with you or anyone else. Car Seat: Always place your baby in a rear facing car seat in the backseat of the car. Car seat inserts that come with the car seat can be used as they are crash tested with the seat.?? You should not buy additional inserts.?? Dress the baby in a weather appropriate outfit.?? Avoid bulky clothing such as snowsuits or jackets as the baby may squirm in the seat, loosening the shoulder straps and come out of the top of the harness if you need to brake hard or are in an accident.?? Once the baby issecured in the seat you can cover your little one with a blanket if needed.?? If your baby was bornprematurely, follow the directions given to you.?? If you have not already done so, check to make sure your car seat is installed correctly. Check with your local Fire and Police Department to see if they offer car seat inspections at a location close to you. Babies Can Move: ?? Never leave your baby unattended on any surface, raised or flat, or while bathing.?? They can squirm, fall or hurt themselves.?? Always fasten the safety belt when using an infantseat or swing ??? as they may lean forward and fall. Good Handwashing is the number one way you can protect the baby from too?? many germs and prevent infection.?? When family and friends visit ask that they wash their hands before holding your baby.??Also avoid crowds the first month of your baby???s life to protect from colds and flus. Shaking a baby out of frustration can cause severe and lasting damage, even to a baby.?? If you feel you are becoming angry or overwhelmed, place the baby in a safe place and walk away.?? Call a friend or family member.?? If they are not able to offer immediate help call the Parental Stress Hotline at?? , an anonymous 27/12 source of help. Warning Signs to notify your digital account director of: Most babies develop a small amount of jaundice (a yellowish skin color) in the face and upper chest, by about 3 days of age.?? If the yellow color extends below the baby???s belly or if the baby is very sleepy and not feeding well, call your digital account director. A rectal temperature of 100.4F as it could be a sign of infection. Projectile vomiting that continues with each feeding could indicate reflux or a problem with the formula. Extreme sleepiness or very fussy. Cold symptoms with nasal stuffiness, especially if the baby is having difficulty feeding. Constipation with hard stools. Blue or dusky color, call 911. If Your Baby Needs to Remain in the Hospital: Please leave your baby???s ID bracelets on if your baby needs to remain in the hospital after you are discharged home. The phone number to NICU is [phone]. The phone number to [facility] is [phone]. The phone number to [facility] is [phone]. moms should pump every 2-3 hours or 8-12 times in 24 hours.?? If unable to place the baby to breast, if you are having difficulty getting the baby to latch on, or if the baby remains inthe hospital after you are discharged ??? bring the pumped milk to the hospital, labeled with name,date and time.?? Carry it in a small cooler or diaper bag with an ice pack and bring it the next time you visit your baby.?? Consultation Services is available if you need to rent or purchase a pump or products.?? Call and leave a message at [phone] ??? press 3 and a sql server consultant will return your call that day or the next if you call after 3pm. ? * Jayna Gómez RN: PERFORM Event Display: Patient Education Leaflets Authored Date: [id number] OB PP Warning Signs ?? 222 Warning Signs Mom - Warning Signs of Problems to Notify Your Doctor or Mechanic Insulator of: ??? Heavy vaginal bleeding (soaking a pad every hour with bright red blood). ??? Large clots the size of an orange or so. ??? A temperature greater than or equal to 100.6F especially if accompanied by painful, frequent urination, lower abdominal pain with a foul smell to vaginal flow, a red hard hot area on breast that could indicate a breast infection. ??? Severe headaches, visual changes such as seeing spots or blurred vision. ??? Extreme back pain. ??? Pain in the back of your legs that is tender to the touch. ??? Breathing difficulties. ??? Signs of depression include: loss of interest in your baby, weepiness, weight loss, exhaustion, feeling of being overwhelmed or anxious. T his is a chemical imbalance that needs medical treatment. Many women do however experience baby blues which is a temporary feeling of weepiness or anxiety which goes away with some good old T.L.C and sleep. Having a baby is a wonderful experience but sleep deprivation, hormone changes and a life style change, can make the best of us have an off day. If these feelings last for a prolonged lengthof time, or begin to affect your appetite, or your ability to sleep, call your doctor or diesel locomotive firer/fireman. - Warning Signs to notify your digital account director of: ??? Most babies develop a small amount of jaundice (a yellowish skin color) in the face and upper chest, by about 3 days of age. If the yellow color extends below the baby's belly or if the baby is very sleepy and not feeding well, call your digital account director. ??? A rectal temperature of 100.4F could be a sign of infection. ??? Projectile vomiting that continues with each feeding could indicate reflux or a problem with the formula. ??? Extreme sleepiness or very fussy. ??? Cold symptoms with nasal stuffiness, especially if the baby is having difficulty feeding. ??? Blue or dusky skin color. ??? Constipation with hard stools. ?? Patient Care team information Care Team Personnel Name: Not on Staff, PCP Position: [facility] Physician (General Medicine) Member Role: PCP Name: Suzan Swift DO Position: [facility] AVIATION SUPPORT EQUIPMENT REPAIRER MD Member Role: [employer]etime AVIATION SUPPORT EQUIPMENT REPAIRER Physician Address: Address: [address] [place] [address] Name: Daisy Miner RN Position: [facility] OB RN Member Role: Patient Care Provider Care Team Related Persons Name: ZULLY CLIFTON Address: home [address] [place] [address] Name: SHANNON CLIFTON Address: AMER[place] Address: home [address] [address] [place] Name: WHIT CARTWRIGHT Name: LULA GUY Address: home [address] [place] [address] Name: AMADA FRAZIER Name: KEIRY RIVER Address: home [address] [place] [address]
--- OUTSIDE RECORDS SUMMARY | 2023-01-05 09:46 | XMS_ITS | Continuity of Care Document ---
Author Name Unknown Organization [facility] Address [address] [place] [address]- Care Team Providers Care Industrial Coffee Grinder Name Role Phone Not on Staff, PCP Primary Care Physician Unavail able [facility]counter [facility] Date(s): 07/06/[facility] - 10/02/22 [facility] [address] [address]- Attending Physician: Bird ZACARIAS [OB]Mariza Admitting Physician: [...] Personnel Name: Not on Staff, PCP Position: [facility] Physician (General Medicine) Member Role: PCP Name: Suzan Swift DO Position: [facility] RESEARCH AND DEVELOPMENT TESTER MD Member Role: Lifetime RESEARCH AND DEVELOPMENT TESTER Physician Address: Address: [address] [place] [address] [address]- Care Team Related Persons Name: ZULLY CLIFTON Address: home [address] [place] [address] Name: WHIT CARTWRIGHT Name: LULA GUY Address: home [address] [place] [address] Name: PT STATES, NO ONE Name: KEIRY RIVER Address: home [address] [place] [address]
--- OUTSIDE RECORDS SUMMARY | 2023-01-05 09:46 | XMS_ITS | Continuity of Care Document ---
Author Name Unknown Organization [facility] Address [address] [place] [address]- Care Team Providers Care Formulation Scientist Name Role Phone Not on Staff, PCP Primary Care Physician Unavail able Encounter [facility] Date(s): 10/13/22 - 11/27/[address] [address]- Attending Physician: Bird ZACARIAS [OB]Mariza Admitting Physician: [...] 0, Maricel... Start Date: 11/18/22 Status: Ordered docusate sodium 100 mg oral capsule 100 mg, 1, capsule, By Mouth, 2 times a day, # 60 capsule, Refills 0, Tot. Refills 0, Maintenance, 11/18/22 13:22:00 EDT, Route to Pharmacy Electronically, [facility]/pharmacy #[id number], Partial fill upon patient request if [...] 0, Mainten... Start Date: 11/18/22 Status: Ordered Methadone See Instructions, Methadone 105 mg in [...] 11/18/22 13:22:00 EDT, Route to Pharmacy Electronically, [facility]/pharmacy #[id number], Partial fill upon patient request if the prescription is for a... Start Date: 11/18/22 Status: Ordered Multivitamins with Folic Acid 1 mg oral tablet 1 tablet, By Mouth, Daily, # 90 tablet, 2 Refills, Maintenance, 06/23/22 12:32:00 EST, [facility]/pharmacy#[id number], Partial fill upon patient request if the [...] Gas, 11/18/2312:22:00 EDT, Route to Pharmacy Electronically, [facility]/pharmacy #[id number], Partial fill upon patient request if the [...] Personnel Name: Not on Staff, PCP Position: [facility] Physician (General Medicine) Member Role: PCP Name: Suzan Swift DO Position: [facility] HUMAN RESOURCE ASSISTANT MD Member Role: Lifetime HUMAN RESOURCE ASSISTANT Physician Address: Address: [address] [place] [address] [address]- Care Team Related Persons Name: ZULLY CLIFTON Address: home [address] [place] [address] Name: SHANNON CLIFTON Address: AMERCN Address: home [address] [address] [place] Name: WHIT CARTWRIGHT Name: LULA GUY Address: home [address] [place] [address] Name: AMADA ARTHUR Name: KEIRY RIVER Address: home [address] [place] [address]
--- OUTSIDE RECORDS SUMMARY | 2023-01-05 09:46 | XMS_ITS | Continuity of Care Document ---
Author Name Unknown Organization [facility] Address [address] [place] [address]- Care Team Providers Care Business Systems Architect Name Role Phone Not on Staff, PCP Primary Care Physician Unavail able Encounter [facility] Date(s): 11/10/22 - 12/11/[address] [address]- Attending Physician: Not on Staff, Attending MD [...] 11/18/22 13:22:00 EDT, Route to Pharmacy Electronically, [facility]/pharmacy #[id number], Partial fill upon patient request if [...] 11/18/22 13:22:00 EDT, Route to Pharmacy Electronically, [facility]/pharmacy #[id number], Partial fill upon patient request if the prescription is for a... Start Date: 11/18/22 Status: Ordered Multivitamins with Folic Acid 1 mg oral tablet 1 tablet, By Mouth, Daily, # 90 tablet, 2 Refills, Maintenance, 06/23/22 12:32:00 EST, [facility]/pharmacy#[id number], Partial fill upon patient request if the [...] Gas, 11/18/2312:22:00 EDT, Route to Pharmacy Electronically, [facility]/pharmacy #[id number], Partial fill upon patient request if the [...] Personnel Name: Not on Staff, PCP Position: [facility] Physician (General Medicine) Member Role: PCP Name: Suzan Swift DO Position: [facility] PATHOLOGICAL TECHNICIAN MD Member Role: Lifetime PATHOLOGICAL TECHNICIAN Physician Address: Address: [address] [place] [address] [address]- Care Team Related Persons Name: ZULLY CLIFTON Address: home [address] [place] [address] Name: SHANNON CLIFTON Address: AMERCN Address: home [address] [address] [place] Name: WHIT CARTWRIGHT Name: LULA GUY Address: [address] [place] [address] Name: AMADA ARTHUR Name: KEIRY RIVER Address: home [address] [place] [address]
--- OUTSIDE RECORDS SUMMARY | 2023-01-05 09:46 | XMS_ITS | Continuity of Care Document ---
Author Name Unknown Organization [facility] Address [address] [place] [address]- Care Team Providers Care Medical Physics Researcher Name Role Phone Not on Staff, PCP Primary Care Physician Unavail able Encounter [facility] Date(s): 10/13/22 - 12/25/22 [facility] [address] [address]- Attending Physician: Bird ZACARIAS [OB], Mariza Quiñoenz Admitting Physician: Bird ZACARIAS [OB], Mariza Quiñonez [...] Personnel Name: Not on Staff, PCP Position: [facility] Physician (General Medicine) Member Role: PCP Name: Suzan Swift DO Position: [facility] INSURANCE ADJUSTER MD Member Role: Lifetime INSURANCE ADJUSTER Physician Address: Address: [address] [place] [address] [address]- Care Team Related Persons Name: ZULLY CLIFTON Address: home [address] [place] [address] Name: SHANNON CLIFTON Address: AMERCN Address: home [address] [address] Name: WHIT CARTWRIGHT Name: LULA GUY Address: home [address] [place] [address] Name: AMADA ARTHUR Name: KEIRY RIVER Address: home [address] [place] [address]
--- OUTSIDE RECORDS SUMMARY | 2023-01-05 09:46 | XMS_ITS | Continuity of Care Document ---
Author Name Unknown Organization [facility] Address [address] [place] [address]- Care Team Providers Care Pediatric Radiologist Name Role Phone Not on Staff, PCP Primary Care Physician Unavail able [facility] - 12/15/[facility] [address] [address]- Allergies, Adverse Reactions, Alerts Substance Reaction Severity [...] Personnel Name: Not on Staff, PCP Position: [facility] Physician (General Medicine) Member Role: PCP Name: Suzan Swift DO Position: [facility] CHANNELING MACHINE RUNNER MD Member Role: Lifetime CHANNELING MACHINE RUNNER Physician Address: Address: [address] [place] [address] [address]- Care Team Related Persons Name: ZULLY CLIFTON Address: home [address] [place] [address] Name: SHANNON CLIFTON Address: AMERCN Address: [address] [address] Name: WHIT CARTWRIGHT Name: LULA GUY Address: home [address] [place] [address] Name: AMADA ARTHUR Name: KEIRY RIVER Address: home [address] [place] [address]
--- OUTSIDE RECORDS SUMMARY | 2023-01-05 09:46 | XMS_ITS | Continuity of Care Document ---
Author Name Unknown Organization [facility] Address [address] [place] [address]- Care Team Providers Care Quality Assurance Clerk Name Role Phone Not on Staff, PCP Primary Care Physician Unavail able [facility] - [facility] [address] [address]- Attending Physician: Bird ZACARIAS [OB], Mariza Quiñonez [...] Personnel Name: Not on Staff, PCP Position: [facility] Physician (General Medicine) Member Role: PCP Name: Suzan Swift DO Position: [facility] NEWS ASSISTANT MD Member Role: Lifetime NEWS ASSISTANT Physician Address: Address: [address] [place] [address] [address]- Care Team Related Persons Name: ZULLY CLIFTON Address: home [address] [place] [address] Name: WHIT CARTWRIGHT Name: LULA GUY Address: home [address] [place] [address] Name: PT STATES, NO ONE Name: KEIRY RIVER Address: home [address] [place] [address]
--- OUTSIDE RECORDS SUMMARY | 2023-01-05 09:46 | XMS_ITS | Continuity of Care Document ---
Author Name Unknown Organization [facility] Address [address] [place] [address]- Care Team Providers Care Barrel Rifler Button Name Role Phone Not on Staff, PCP Primary Care Physician Unavail able Encounter [facility] Date(s): 10/13/22 - 12/04/[address] [address]- Attending Physician: Bird ZACARIAS [OB]Mariza Admitting Physician: [...] 13:22:00 EDT, Route to Pharmacy Electronically, [facility]/pharmacy #[id number], Partial fill upon patient request [...] 13:22:00 EDT, Route to Pharmacy Electronically, [facility]/pharmacy #[id number], Partial fill upon patient request if the prescription is for a... Start Date: 11/18/22 Status: Ordered Multivitamins with Folic Acid 1 mg oral tablet 1 tablet, By Mouth, Daily, # 90 tablet, 2 Refills, Maintenance, 06/23/22 12:32:00 EST, [facility]/pharmacy#[id number], Partial fill upon patient request if [...] 11/18/2312:22:00 EDT, Route to Pharmacy Electronically, [facility]/pharmacy #[id number], Partial fill upon patient request if the [...] Personnel Name: Not on Staff, PCP Position: [facility] Physician (General Medicine) Member Role: PCP Name: Suzan Swift DO Position: [facility] INSTRUMENTAL MUSIC TEACHER MD Member Role: Lifetime INSTRUMENTAL MUSIC TEACHER Physician Address: Address: [address] [place] [address] [address]- Care Team Related Persons Name: ZULLY CLIFTON Address: home [address] [place] [address] Name: SHNANON CLIFTON Address: AMERCN Address: [address] [address] [place] Name: WHIT CARTWRIGHT Name: LULA GUY Address: [address] [place] [address] Name: AMADA ARTHUR Name: KEIRY RIVER Address: [address] [place] [address]
--- OUTSIDE RECORDS SUMMARY | 2023-01-05 09:46 | XMS_ITS | Continuity of Care Document ---
Author Name Unknown Organization [facility] Address [address] [place] [address]- Care Team Providers Care Grain Origination Specialist Name Role Phone Not on Staff, PCP Primary Care Physician Unavail able Encounter [facility] Date(s): 10/13/22 - 12/18/22 [facility] [address] [address]- Attending Physician: Bird ZACARIAS [OB], Mariza Quiñonez [...] Not on Staff, PCP Position: [facility] Physician (General Medicine) Member Role: PCP Name: Suzan Swift DO Position: [facility] SECURITY STRATEGIST MD Member Role: Lifetime SECURITY STRATEGIST Physician Address: Address: [address] [place] [address] [address]- Care Team Related Persons Name: ZULLY CLIFTON Address: [address] [place] [address] Name: SHANNON CLIFTON Address: AMERCN Address: [address] [address] Name: WHIT CARTWRIGHT Name: LULA GUY Address: [address] [place] [address] Name: AMADA ARTHUR Name: KEIRY RIVER Address: [address] [place] [address]
--- OUTSIDE RECORDS SUMMARY | 2023-01-05 09:47 | XMS_ITS | Continuity of Care Document ---
Author Name Unknown Organization [facility] Address [address] [place] [address]- Care Team Providers Care Diesel Retrofit Designer Name Role Phone Not on Staff, PCP Primary Care Physician Unavail able [facility] 08[facility]22 - 10/16/22 [facility] [address] [address]- Attending Physician: Bird ZACARIAS [OB], Mariza Quiñonez [...] Personnel Name: Not on Staff, PCP Position: [facility] Physician (General Medicine) Member Role: PCP Name: Suzan Swift DO Position: [facility] DOCK ATTENDANT MD Member Role: Lifetime DOCK ATTENDANT Physician Address: Address: [address] [place] [address] [address]- Care Team Related Persons Name: ZULLY CLIFTON Address: [address] [place] [address] Name: WHIT CARTWRIGHT Name: LULA GUY Address: [address] [place] [address] Name: PT STATES, NO ONE Name: KEIRY RIVER Address: home [address] [place] [address]
--- OUTSIDE RECORDS SUMMARY | 2023-01-05 09:47 | XMS_ITS | Continuity of Care Document ---
Author Name Unknown Organization [facility] Address [address] [place] [address]- Care Team Providers Care Physical Chemistry Professor Name Role Phone Not on Staff, PCP Primary Care Physician Unavail able [facility]s): 10/13/22 - 11/20/[address] [address]- Attending Physician: Bird ZACARIAS [OB]Mariza Admitting Physician: [...] 11/18/22 13:22:00 EDT, Route to Pharmacy Electronically, [facility]/pharmacy #[id number], Partial fill upon [...] 11/18/22 13:22:00 EDT, Route to Pharmacy Electronically, [facility]/pharmacy #[id number], Partial fill upon patient request if the prescription is for a... Start Date: 11/18/22 Status: Ordered Multivitamins with Folic Acid 1 mg oral tablet 1 tablet, By Mouth, Daily, # 90 tablet, 2 Refills, Maintenance, 06/23/22 12:32:00 EST, [facility]/pharmacy#[id number], Partial fill upon patient [...] Gas, 11/18/2312:22:00 EDT, Route to Pharmacy Electronically, [facility]/pharmacy #[id number], Partial fill upon patient request if the [...] Personnel Name: Not on Staff, PCP Position: [facility] Physician (General Medicine) Member Role: PCP Name: Suzan Swift DO Position: [facility] SHOULDER JOINER MD Member Role: Lifetime SHOULDER JOINER Physician Address: Address: [address] [place] [address] [address]- Care Team Related Persons Name: ZULLY CLIFTON Address: [address] [place] [address] Name: SHANNON CLIFTON Address: AMERCN Address: [address] [address] [place] Name: WHIT CARTWRIGHT Name: LULA GUY Address: [address] [place] [address] Name: AMADA ARTHUR Name: KEIRY RIVER Address: [address] [place] [address]
--- OUTSIDE RECORDS SUMMARY | 2023-01-05 09:47 | XMS_ITS | Continuity of Care Document ---
Author Name Unknown Organization [facility] Address [address] [place] [address]- Care Team Providers Care Residential Life Director Name Role Phone Not on Staff, PCP Primary Care Physician Unavail able [facility]22 [facility] [address] [address]- Attending Physician: Bird ZACARIAS [OB], Mariza Quiñonez [...] Personnel Name: Not on Staff, PCP Position: [facility] Physician (General Medicine) Member Role: PCP Name: Suzan Swift DO Position: [facility] TURNTABLE OPERATOR MD Member Role: Lifetime TURNTABLE OPERATOR Physician Address: Address: [address] [place] [address] [address]- Care Team Related Persons Name: ZULLY CLIFTON Address: [address] [place] [address] Name: SHANNON CLIFTON Address: AMERCN Address: [address] [address] Name: WHIT CARTWRIGHT Name: LULA GUY Address: [address] [place] [address] Name: AMADA ARTHUR Name: KEIRY RIVER Address: [address] [place] [address]
--- OUTSIDE RECORDS SUMMARY | 2023-01-05 09:47 | XMS_ITS | Continuity of Care Document ---
Author Name Unknown Organization [facility] Address [address] [place] [address]- Care Team Providers Care News Commentator Name Role Phone Not on Staff, PCP Primary Care Physician Unavail able [facility] 07[facility]22 - 10/16/22 [facility] [address] [address]- Attending Physician: Ernestina Nelson CNM Admitting Physician: Ernestina Nelson CNM Allergies, Adverse Reactions, Alerts Substance Reaction Severity [...] Personnel Name: Not on Staff, PCP Position: [facility] Physician (General Medicine) Member Role: PCP Name: Suzan Swift DO Position: [facility] PERSONAL ASSISTANT MD Member Role: Lifetime PERSONAL ASSISTANT Physician Address: Address: [address] [place] [address] [address]- Care Team Related Persons Name: ZULLY CLIFTON Address: [address] [place] [address] Name: WHIT CARTWRIGHT Name: LULA GUY Address: [address] [place] [address] Name: PT STATES, NO ONE Name: KEIRY RIVER Address: home [address] [place] [address]
--- OUTSIDE RECORDS SUMMARY | 2023-01-05 09:47 | XMS_ITS | Continuity of Care Document ---
Author Name Unknown Organization [facility] Address [address] [place] [address]- Care Team Providers Care Traveling Secretary Name Role Phone Not on Staff, PCP Primary Care Physician Unavail able Encounter [facility] Date(s): 11/12/22 - 12/18/22 [facility] [address] [address]- Attending Physician: Madelaine Robles MD Admitting Physician: Madelaine Robles MD Referring Physician: Bird ZACARIAS [OB], Mariza Quiñonez Allergies, Adverse Reactions, Alerts Substance Reaction Severity Status Abilify Active Immunizations Given and Recorded Vaccine Date Status Refusal Reason Measles/Mumps/Rubella Virus Vaccine 11/18/22 Given tetanus/diphtheria/pertussis, acel(Tdap) 01/04/21 Given tetanus/diphtheria/pertussis, acel(Tdap) 04/23/16 Given influenza virus vaccine, inactivated 1 04/09/16 Gi ymnor influenza virus vaccine, inactivated 2 04/22/10 Gi [...] Suzan Swift DO Position: [facility] OVEN OPERATOR AUTOMATIC MD Member Role: Lifetime OVEN OPERATOR AUTOMATIC Physician Address: Address: [address] [place] [address] [address]- Care Team Related Persons Name: ZULLY CLIFTON Address: [address] [place] [address] Name: SHANNON CLIFTON Address: AMERCN Address: [address] [address] Name: WHIT CARTWRIGHT Name: LULA GUY Address: [address] [place] [address] Name: AMADA ARTHUR Name: KEIRY RIVER Address: [address] [place] [address]
--- OUTSIDE RECORDS SUMMARY | 2023-01-05 09:47 | XMS_ITS | Continuity of Care Document ---
Author Name Unknown Organization [facility] Address [address] [place] [address]- Care Team Providers Care Commercial Baker Helper Name Role Phone Not on Staff, PCP Primary Care Physician Unavail able [facility] 07[facility]22 - [facility]30[facility] [address] [address]- Attending Physician: Not on Staff, Attending MD [...] Swift DO Position: [facility] MACHINE UMBRELLA TIPPER MD Member Role: Lifetime MACHINE UMBRELLA TIPPER Physician Address: Address: [address] [place] [address] [address]- Care Team Related Persons Name: ZULLY CLIFTON Address: [address] [place] [address] Name: WHIT CARTWRIGHT Name: LULA GUY Address: [address] [place] [address] Name: PT STATES, NO ONE Name: KEIRY RIVER Address: [address] [place] [address]
--- OUTSIDE RECORDS SUMMARY | 2023-01-05 09:47 | XMS_ITS | Continuity of Care Document ---
Author Name Unknown Organization [facility] Address [address] [place] [address]- Care Team Providers Care Filling Hauler Name Role Phone Not on Staff, PCP Primary Care Physician Unavail able [facility]s): 10/28/22 - 12/03/[address] [address]- Attending Physician: Bird ZACARIAS [OB], Mariza Quiñonez Admitting Physician: Bird ZACARIAS [OB], Mariza Quiñonez Referring Physician: Bird ZACARIAS [OB]Marzia Allergies, Adverse Reactions, Alerts Substance Reaction Severity [...] 11/18/22 13:22:00 EDT, Route to Pharmacy Electronically, [facility]/pharmacy #[id number], Partial fill upon patient request if [...] 11/18/22 13:22:00 EDT, Route to Pharmacy Electronically, [facility]/pharmacy #[id number], Partial fill upon patient request if the prescription is for a... Start Date: 11/18/22 Status: Ordered Multivitamins with Folic Acid 1 mg oral tablet 1 tablet, By Mouth, Daily, # 90 tablet, 2 Refills, Maintenance, 06/23/22 12:32:00 EST, [facility]/pharmacy#[id number], Partial fill upon patient request if the [...] Gas, 11/18/2312:22:00 EDT, Route to Pharmacy Electronically, [facility]/pharmacy #[id number], Partial fill upon patient request if [...] Personnel Name: Not on Staff, PCP Position: [facility] Physician (General Medicine) Member Role: PCP Name: Suzan Swift DO Position: [facility] POTTERY KILN BUILDER MD Member Role: Lifetime POTTERY KILN BUILDER Physician Address: Address: [address] [place] [address] [address]- Care Team Related Persons Name: ZULLY CLIFTON Address: [address] [place] [address] Name: SHANNON CLIFTON Address: AMERCN Address: [address] [address] [place] Name: WHIT CARTWRIGHT Name: LULA GUY Address: [address] [place] [address] Name: AMADA ARTHUR Name: KEIRY RIVER Address: [address] [place] [address]
--- OUTSIDE RECORDS SUMMARY | 2023-01-05 09:47 | XMS_ITS | Continuity of Care Document ---
Author Name Unknown Organization [facility] Address [address] [place] [address]- Care Team Providers Care Neckties Painter Name Role Phone Not on Staff, PCP Primary Care Physician Unavail able [facility]s): 11/19/22 - 12/19/22 [facility] [address] [address]- Allergies, Adverse Reactions, Alerts Substance Reaction Severity [...] Personnel Name: Not on Staff, PCP Position: [facility] Physician (General Medicine) Member Role: PCP Name: Suzan Swift DO Position: [facility] SPOUTER MD Member Role: Lifetime SPOUTER Physician Address: Address: [address] [place] [address] [address]- Care Team Related Persons Name: ZULLY CLIFTON Address: [address] [place] [address] Name: SHANNON CLIFTON Address: AMERCN Address: [address] [address] Name: WHIT CARTWRIGHT Name: LULA GUY Address: [address] [place] [address] Name: AMADA ARTHUR Name: KEIRY RIVER Address: [address] [place] [address]
--- NOTE | 2023-01-05 09:54 | PC.NURSE ---
Alert and oriented. States has had abdominal pain x 5 days. Last BM was this morning, denies urinary symptoms. States no diarrhea or blood in stool. Denies vomiting but states has felt nauseous. Reports pain only on left side that extends to flank. Pain with palpation on left side. had a detached placenta and had an emergency c section on november 15.
[2023-01-05 09:57] VITALS: BP 111/55; PULSE 77; RESP 18; TEMP 36.8; O2SAT 99
[2023-01-05 10:04] LABS: MANUAL DIFF FLAG NO
[2023-01-05 10:06] LABS: Basophils Percent Auto 0.6 % (0-2); Eosinophils Absolute Auto 0.2 X10*3/uL (0.0-0.4); Eosinophils Percent Auto 2.3 % (0-4); Hemoglobin 11.6 g/dl (12.0-16.0); Imm Gran Abs Auto 0.02 X10*3/uL (0.00-0.03); Imm Gran Pct Auto 0.3 % (0.0-0.4); Lymphocytes Absolute Auto 2.1 X10*3/uL (1.2-4.9); Lymphocytes Percent Auto 29.4 % (20-40); Mean Corpuscular HGB Conc 32.2 g/dl (31.0-35.0); Mean Corpuscular Hemoglobin 27.8 pg (27.0-33.0); Mean Corpuscular Volume 86.1 fL (80.0-98.0); Mean Platelet Volume 9.2 fL (9.4-12.3); Monocytes Absolute Auto 0.5 X10*3/uL (0.1-1.2); Neutrophils Absolute Auto 4.2 x10*3/uL (2.0-8.3); Neutrophils Percent Auto 60.4 % (45-73); Platelet Count 280 X10*3/uL (160-400); Red Blood Count 4.18 X10*6/uL (4.20-5.50); Red Cell Distribution Width 13.4 % (11.0-16.0)
--- NOTE | 2023-01-05 10:08 | ED_ITS ---
HPI - Abdominal Pain General Chief Complaint: Abdominal Pain Stated Complaint: abd pain, red urine Time Seen by Provider: 01/05/23 09:48 Source: patient Mode of arrival: ambulatory Limitations: no limitations History of Present Illness HPI narrative: 32-year-old female came in for evaluation of abdominal pain. History of 5 days of left lower quadrant abdominal pain that has been constant for 5 days described as moderate 7/10, no radiation, no nausea, no vomiting, no diarrhea, last bowel movement was yesterday patient described it as painful but no blood in the stool. Patient declined dysuria, frequency urination, blood in urine. Patient is 8 weeks ago had an emergency , no issue or dr garcia with the surgical incision. Related Data Previous Rx's Medication Instructions Recorded chlorhexidine gluconate 0.12 % 15 ml buccal BID #473 mL 08/20/21 mouthwash clindamycin HCl 300 mg capsule 300 mg PO Q6H 7 days #28 caps 08/20/21 ibuprofen 600 mg tablet 600 mg PO Q8H PRN pain #30 tabs 08/20/21 clindamycin HCl 300 mg capsule 300 mg PO Q6H 7 days #28 caps 02/02/22 ibuprofen 600 mg tablet 600 mg PO Q8H PRN pain #20 tabs 02/02/22 chlorhexidine gluconate 0.12 % 15 ml buccal BID #118 mL 09/13/22 mouthwash (Peridex) penicillin V potassium 500 mg 500 mg PO BID 10 days #20 tabs 09/13/22 tablet Allergies Allergy/AdvReac Type Severity Reaction Status Date / Time aripiprazole [From ABILIFY] Allergy Unknown ANAPHYLAXIS Verified 04/13/21 02:10 Review of Systems Review of Systems All other systems are reviewed and are negative Constitutional: Reports as per HPI and Reports no additional constitutional complaints Eyes: Reports as per HPI and Reports no additional eye complaints Reports system reviewed and no additional complaints, except as documented Cardiovascular: Reports as per HPI and Reports no additional cardiovascular complaints Respiratory: Reports as per HPI and Reports no additional respiratory complaints Gastrointestinal: Reports as per HPI and Reports no additional gastrointestinal complaints Genitourinary: Reports no additional female genitourinary complaints Musculoskeletal: Reports no additional musculoskeletal complaints Skin/Breast: Reports system reviewed and no additional complaints, except as docu Psychiatric: Reports no additional psychiatric complaints Endocrine: Reports no additional endocrine complaints Hematologic/Lymphatic: Reports no additional hematologic/lymphatic complaints Allergic/Immunologic: Reports no additional allergic/immunologic complaints Reports system reviewed and no additional complaints, except as documented and Reports Abnormal speech present [facility] Past Medical History Medical History Heroin abuse Social History Social History Alcohol intake: never Smoked in Last 30 Days: Yes Use of substances other than those prescribed or required for medical reasons: No Advance Directives: No Physical Exam ED Vital Signs: Vital Signs - 24 hr 01/05/23 08:53 01/05/23 09:57 Temperature 98.8 F 98.2 F Pulse Rate 81 77 Respiratory Rate 16 18 Blood Pressure 121/82 111/55 L Pulse Oximetry 98 99 Oxygen Delivery Method Room Air Room Air BMI result Body Mass Index 28.7 Vital signs have been reviewed as appeared to be correct. Blood pressure normal. Heart rate normal. Respiration rate normal. Temperature normal. Oxygen saturation normal. Appearance: Alert. Oriented X3. No acute distress. Head: Normal external exam. Normocephalic. Atraumatic. No Lopez signs noted. No raccoon eyes noted Eyes: PERRLA. EOMI. Conjunctiva and sclera normal. Eyelids normal. ENT: TM's Normal. Pharynx normal. Uvula midline. Moist mucous membranes. No trismus noted. No drooling noted. No muffled voice noted. Neck: Normal inspection. Neck supple. FROM. No adenopathy. Thyroid Normal. No meningeal signs. No neck mass noted. CVS: Normal heart rate and rhythm. Heart sound normal. No murmurs noted. Pulses normal throughout. Respiratory: No respiratory distress. Painless inspiration. Breath sounds normal. No wheezes/rales/rhonchi noted. Chest nontender. No accessory muscle usage noted or decreased air movement noted. Abdomen: Soft, left lower quadrant tenderness, no rebound tenderness, no guarding. No distention noted. No organomegaly noted. No visible injury noted. Pelvic exam: Deferred for ultrasound. Back: No CVA tenderness. Full range of motion noted. Skin: Skin warm and dry. Normal skin color. Normal skin turgor. No rashes/le sions/lacerations noted. Extremities: No lower extremity edema. Extremities exhibit normal range of motion. Extremities nontender. Neuro: Oriented X 3. Cranial nerve exam: II-XII are grossly intact No motor deficit. No sensory deficit. Reflexes normal. Course Course Course Narrative: 32-year-old female came in for evaluation of left abdominal pain for a week, patient left before full evaluation of her symptoms. Medical Decision Making Differential Diagnosis Differential Diagnoses: The differential diagnosis associated with the presentation includes (Ovarian cyst, left ovarian torsion, diverticulitis, colitis, severe anemia, electrolyte abnormality, .) Admission/Observation Consideration of admission/observation: Escalation of care including admission/observation considered Lab Data MDM Lab Attestation statement: I reviewed the patient's lab results. 01/05/23 10:00 01/05/23 10:00 Labs: Lab Results 01/05/23 01/05/23 01/05/23 Range/Units 09:53 10:00 10:00 WBC 7.0 (4.8-10.8) X10*3/uL RBC 4.18 L (4.20-5.50) X10*6/uL Hgb 11.6 L (12.0-16.0) g/dl Hct 36.0 L (37.0-47.0) % MCV 86.1 (80.0-98.0) fL MCH 27.8 (27.0-33.0) pg MCHC 32.2 (31.0-35.0) g/dl RDW 13.4 (11.0-16.0) % Plt Count 280 (160-400) X10*3/uL MPV 9.2 L (9.4-12.3) fL Immature Gran % (Auto) 0.3 (0.0-0.4) % Neut % (Auto) 60.4 (45-73) % Lymph % (Auto) 29.4 (20-40) % [place] % (Auto) 7.0 (2-11) % Eos % (Auto) 2.3 (0-4) % Baso % (Auto) 0.6 (0-2) % Lymph # (Auto) 2.1 (1.2-4.9) X10*3/uL [place] # (Auto) 0.5 (0.1-1.2) X10*3/uL Eos # (Auto) 0.2 (0.0-0.4) X10*3/uL Baso # (Auto) 0.0 (0.0-0.2) X10*3/uL Abs Immat Gran (auto) 0.02 (0.00-0.03) X10*3/uL Absolute Neuts (auto) 4.2 (2.0-8.3) x10*3/uL Absolute Nucleated RBC 0.000 (0.0-0.012) X10*3/uL Nucleated RBC % (auto) 0.0 (0.0-0.2) /100WBC Sodium 141 (135-145) mmol/L Potassium 3.7 (3.3-5.1) mmol/L Chloride 105 (96-108) mmol/L Carbon Dioxide 26 (22-29) mmol/L Anion Gap 14 (12-20) BUN 14 (9-16) mg/dL Creatinine 0.74 (0.5-1.4) mg/dL Estim Creat Clear Calc 102.6 Estimated GFR > 60 Random Glucose 92 (60-115) mg/dL Calcium 8.5 (8.4-10.2) mg/dL Total Bilirubin 0.4 (0.0-1.0) mg/dL Direct Bilirubin 0.1 (0.0-0.5) mg/dL AST 39 H (5-31) U/L ALT 44 H (0-31) U/L Alkaline Phosphatase 123 H (39-117) U/L Total Protein 7.0 (6.5-8.0) g/dL Albumin 4.2 (3.5-5.0) g/dL Lipase 13 (8-78) U/L Beta HCG, Quant mIU/mL Urine Color Dark Yellow Urine Appearance Cloudy Urine pH 5.5 (5.0-9.0) Ur Specific [place] >= 1.030 H (1.005-1.025) Urine Protein Trace (Neg-Trace) mg/dL Urine Glucose (UA) Negative (Negative) mg/dL Urine Ketones Trace (Negative) mg/dL Urine Blood Negative (Negative) Urine Nitrite Positive H (Negative) Ur Leukocyte Esterase Trace H (Negative) Urine RBC 3-5 H (0-2) /HPF Urine WBC 0-5 (0-5) /HPF Ur Squamous Epith Cells 11-20 (0-2) /HPF Calcium Oxalate Crystal Present Urine Bacteria 4+ (None Seen) Hyaline Casts 0-2 (0-2) /LPF 01/05/23 Range/Units 10:24 WBC (4.8-10.8) X10*3/uL RBC (4.20-5.50) X10*6/uL Hgb (12.0-16.0) g/dl Hct (37.0-47.0) % MCV (80.0-98.0) fL MCH (27.0-33.0) pg MCHC (31.0-35.0) g/dl RDW (11.0-16.0) % Plt Count (160-400) X10*3/uL MPV (9.4-12.3) fL Immature Gran % (Auto) (0.0-0.4) % Neut % (Auto) (45-73) % Lymph % (Auto) (20-40) % [place] % (Auto) (2-11) % Eos % (Auto) (0-4) % Baso % (Auto) (0-2) % Lymph # (Auto) (1.2-4.9) X10*3/uL [place] # (Auto) (0.1-1.2) X10*3/uL Eos # (Auto) (0.0-0.4) X10*3/uL Baso # (Auto) (0.0-0.2) X10*3/uL Abs Immat Gran (auto) (0.00-0.03) X10*3/uL Absolute Neuts (auto) (2.0-8.3) x10*3/uL Absolute Nucleated RBC (0.0-0.012) X10*3/uL Nucleated RBC % (auto) (0.0-0.2) /100WBC Sodium (135-145) mmol/L Potassium (3.3-5.1) mmol/L Chloride (96-108) mmol/L Carbon Dioxide (22-29) mmol/L Anion Gap (12-20) BUN (9-16) mg/dL Creatinine (0.5-1.4) mg/dL Estim Creat Clear Calc Estimated GFR Random Glucose (60-115) mg/dL Calcium (8.4-10.2) mg/dL Total Bilirubin (0.0-1.0) mg/dL Direct Bilirubin (0.0-0.5) mg/dL AST (5-31) U/L ALT (0-31) U/L Alkaline Phosphatase (39-117) U/L Total Protein (6.5-8.0) g/dL Albumin (3.5-5.0) g/dL Lipase (8-78) U/L Beta HCG, Quant < 2 mIU/mL Urine Color Urine Appearance Urine pH (5.0-9.0) Ur Specific [place] (1.005-1.025) Urine Protein (Neg-Trace) mg/dL Urine Glucose (UA) (Negative) mg/dL Urine Ketones (Negative) mg/dL Urine Blood (Negative) Urine Nitrite (Negative) Ur Leukocyte Esterase (Negative) Urine RBC (0-2) /HPF Urine WBC (0-5) /HPF Ur Squamous Epith Cells (0-2) /HPF Calcium Oxalate Crystal Urine Bacteria (None Seen) Hyaline Casts (0-2) /LPF Independent Interpretation I performed an independent interpretation of an: Ultrasound (Pelvic: No acute pelvic abnormality.) Radiology Impression Discussion of test interpretation with radiology: I have reviewed the radiologist's reading. Discharge Plan Discharge Clinical Impression: Abdominal pain Patient Disposition: Elopement Prescriptions: No Action clindamycin HCl 300 mg capsule 300 mg PO Q6H 7 Days Qty: 28 0RF ibuprofen 600 mg tablet 600 mg PO Q8H PRN (Reason: pain) Qty: 20 0RF clindamycin HCl 300 mg capsule 300 mg PO Q6H 7 Days Qty: 28 0RF ibuprofen 600 mg tablet 600 mg PO Q8H PRN (Reason: pain) Qty: 30 0RF chlorhexidine gluconate 0.12 % mouthwash 15 ml buccal BID Qty: 473 0RF penicillin V potassium 500 mg tablet 500 mg PO BID 10 Days Qty: 20 0RF chlorhexidine gluconate [Peridex] 0.12 % mouthwash 15 ml buccal BID Qty: 118 0RF
[2023-01-05 10:09] LABS: Appearance Urine Cloudy; Color Urine Dark Yellow; Glucose Urine UA Negative (Negative); Leukocyte Esterase Urine Trace (Negative); Nitrite Urine Positive (Negative); PH 5.5 (5.0-9.0); Specific Gravity - Urine >= 1.030 (1.005-1.025); UMIC TRIGGER UACC YES; Urine Blood Negative (Negative); Urine Ketones Trace mg/dL (Negative); Urine Protein Trace mg/dL (Neg-Trace)
[2023-01-05 10:20] LABS: Anion Gap 14 (12-20); Blood Urea Nitrogen 14 mg/dL (9-16); Calcium 8.5 mg/dL (8.4-10.2); Carbon Dioxide 26 mmol/L (22-29); Chloride 105 mmol/L (96-108); Creatinine Clr Calc Pharmacy 102.6; Estimated Glomerular Filt Rate > 60; Glucose Random 92 mg/dL (60-115); Potassium 3.7 mmol/L (3.3-5.1); Sodium 141 mmol/L (135-145)
[2023-01-05 10:26] LABS: Bacteria Urine 4+ (None Seen); Calcium Oxalate Crystals Urine Present; Hyaline Casts Urine 0-2 /LPF (0-2); UACC Culture Trigger YES; WBC Urine 0-5 /HPF (0-5)
[2023-01-05 11:02] LABS: HCG Quantitative < 2 mIU/mL
[2023-01-05 11:13] LABS: Alanine Aminotransferase 44 U/L (0-31); Albumin Level 4.2 g/dL (3.5-5.0); Alkaline Phosphatase 123 U/L (39-117); Aspartate Amino Transferase 39 U/L (5-31); Bilirubin Direct 0.1 mg/dL (0.0-0.5); Bilirubin Total 0.4 mg/dL (0.0-1.0); Lipase 13 U/L (8-78)
--- NOTE | 2023-01-05 13:25 | PC.NURSE ---
Patient did not want to wait to be discharged. Educated on risk of leaving ama, patient stating she needs to go to court. AMA consent form signed by patient.
== END 2023-01-05 13:26 | disposition left against medical advice (07) ==
PROVIDERS: Emergency Provider Emergency Medicine
DX: R10.2 Pelvic and perineal pain (principal); Z79.899 Other long term (current) drug therapy
CPT/HCPCS: 36415; 76830; 76856; 80048; 80076; 81001; 83690; 84702; 85025; 87086; 93975; 99284

== ENCOUNTER 2023-09-27 14:49 | Emergency (ER) | payer MEDICAID, SELFPAY ==
[2023-09-27 15:05] VITALS: BP 130/69; PULSE 83; RESP 16; TEMP 36.3; O2SAT 98; BMI 30.2
--- NOTE | 2023-09-27 15:05 | ED_ITS ---
HPI - General Adult General Chief complaint: Vaginal Bleeding Stated complaint: Facial swelling/Vaginal bleeding Time Seen by Provider: 09/27/23 17:52 Source: patient Mode of arrival: ambulatory Limitations: no limitations History of Present Illness HPI narrative: Patient is a 32-year-old female with history of substance abuse presenting to the emergency department complaint of right lower jaw pain for the past week as well as vaginal bleeding. She states that she broke a tooth around 1 week ago and has had pain and swelling since. Denies any discharge or drainage. Denies fevers/chills/body aches. States she does not currently have a dentist but is establishing care with 1 at this time. Also reports two days of light pink noted on toilet paper with wiping, states she has not had to use any pads or tampons. States she has low concern for STIs, no intercourse in the past month. Denies dysuria or frequency, denies back or flank pain. States she has not due for her period at this time. MD complaint: dental pain Onset (ago): week(s) Location: mouth Severity: severe Quality: aching Pain Consistency: constant Relieving factors: none Exacerbating factors: eating Treatments prior to arrival: none Related Data Previous Rx's ?Medication ?Instructions ?Recorded chlorhexidine gluconate 0.12 % 15 ml buccal BID #473 mL 08/20/21 mouthwash clindamycin HCl 300 mg capsule 300 mg PO Q6H 7 days #28 caps 08/20/21 ibuprofen 600 mg tablet 600 mg PO Q8H PRN pain #30 tabs 08/20/21 clindamycin HCl 300 mg capsule 300 mg PO Q6H 7 days #28 caps 02/02/22 ibuprofen 600 mg tablet 600 mg PO Q8H PRN pain #20 tabs 02/02/22 chlorhexidine gluconate 0.12 % 15 ml buccal BID #118 mL 09/13/22 mouthwash (Peridex) penicillin V potassium 500 mg 500 mg PO BID 10 days #20 tabs 09/13/22 tablet cefuroxime axetil 500 mg tablet 500 mg PO Q12H 7 days #14 tabs 09/27/23 Allergies Allergy/AdvReac Type Severity Reaction Status Date / Time aripiprazole [From ABILIFY] Allergy Unknown ANAPHYLAXIS Verified 09/27/23 15:08 Review of Systems 2 Review of Systems: As per HPI. Yes all other systems are reviewed and are negative Constitutional: Constitutional: Reports as per HPI [facility] Past Medical History Medical History Heroin abuse Social History Social History Alcohol intake: never Advance Directives: No Advance Directives Information Provided: No Physical Exam ED Vital Signs: Vital Signs - 24 hr 09/27/23 15:05 09/27/23 17:58 Temperature 97.3 F 98.4 F Pulse Rate 83 75 Respiratory Rate 16 16 Blood Pressure 130/69 118/79 Pulse Oximetry 98 98 Oxygen Delivery Method Room Air Room Air BMI result Body Mass Index 30.2 Vital signs have been reviewed and appear to be correct. Blood pressure normal. Heart rate normal. Respiratory rate normal. Temperature normal. Oxygen saturation normal. Const General: cooperative and no acute distress Orientation/consciousness: oriented to person, oriented to place, oriented to time and patient oriented x3 Limitations: no limitations [facility] Head: Yes normocephalic and Yes atraumatic Ears: external ears normal General nose exam: Normal external nose present Face and sinus: Yes face symmetric Mouth: oropharynx normal and moist mucous membranes Throat: Yes uvula midline Eyes Pupils: Equal, round and reactive pupils present Neck Neck: Yes normal visual inspection and Yes supple Resp Effort & Inspection: normal respiratory effort and able to speak in complete sentences Auscultation: clear to auscultation bilaterally Cardio Rate: regular rate Rhythm: regular rhythm Heart sounds: S1 normal heart sound present and S2 normal heart sound present GI Palpation (GI): Soft to palpation and nontender Auscultation: normoactive bowel sounds Other: Pelvic exam chaperoned by ZULLY Murphy tech. General: Yes no CVA tenderness Speculum Exam - Vagina: normal appearance of the vagina Speculum Exam - Cervix: normal appearance of the cervix, Cervical os closed, normal vervical discharge and nontender Bimanual exam- vagina & uterus: No Cervical tenderness present Back/Spine/Pelvis Back: no CVA tenderness Skin General skin exam: elasticity normal and turgor normal Neuro General: oriented to person, oriented to place, oriented to time, patient oriented x3, moves all extremities, no focal motor deficits and CN's II-XI intact bilaterally Cranial nerves: Yes Equal, round and reactive pupils present Cognition (Neuro): normal cognition Extrem General: Yes full ROM, Yes no pedal edema and Yes no calf tenderness Psych Mental Status: mental status grossly normal Affect: normal affect Thought process: Normal thought process present Course Course Course Narrative: This is an RME: Additional HPI, ROS, PE not included below will be deferred to primary provider. This is a [id number], with a hx of substance abuse, who presents to the ER with a complaint of right sided facial swelling x several days as well as abnormal vaginal bleeding x 4 days. Patient has multiple broken and decayed teeth lower with tenderness palpation, no obvious dental abscess. No abdominal cramping. No urinary symptoms. Plan: Labs, UA, beta quant Medical Decision Making Medical Decision Making [facility] Narrative: Patient is a 32-year-old female with history of substance abuse presenting to the emergency department complaint of right lower jaw pain for the past week as well as vaginal bleeding. On exam patient is awake, A+Ox3, VS WNL, afebrile, normal neurological exam without focal deficits, physical exam findings as above. Given reported symptoms and physical exam findings, initial differential includes dental infection versus abscess, UTI, STI. Labs notable for slight leukocytosis, no anemia, no significant electrolyte abnormalities, negative hCG. Urinalysis notable for 1+ leukocytes, positive nitrites, 2+ blood, will treat for UTI at this time. Will prescribe ceftin to cover both UTI and dental infection. Low suspicion for STI, will wait for results prior to treatment. Return precautions discussed. Instructed patient on importance of following up with dentist and patient provided with list of dental clinics. Patient verbalized understanding of and agreement with plan. Differential Diagnosis Differential Diagnoses: The differential diagnosis associated with the presentation includes As per [facility] Admission/Observation Consideration of admission/observation: Escalation of care including admission/observation considered Patient would have been admitted to the hospital had their work up had any findings where hospital admission was appropriate and their clinical presentation warranted hospital admission. Lab Data [facility] Lab Attestation statement: I reviewed the patient's lab results. As per [facility] 09/27/23 15:51 09/27/23 15:51 Labs: Lab Results 09/27/23 09/27/23 Range/Units 15:51 18:13 WBC 13.2 H (4.8-10.8) X10*3/uL RBC 5.07 D (4.20-5.50) X10*6/uL Hgb 14.6 D (12.0-16.0) g/dl Hct 44.1 D (37.0-47.0) % MCV 87.0 (80.0-98.0) fL MCH 28.8 (27.0-33.0) pg MCHC 33.1 (31.0-35.0) g/dl RDW 11.9 (11.0-16.0) % Plt Count 315 (160-400) X10*3/uL MPV 9.9 (9.4-12.3) fL Immature Gran % (Auto) 0.5 H (0.0-0.4) % Neut % (Auto) 74.9 H (45-73) % Lymph % (Auto) 19.3 L (20-40) % [place] % (Auto) 3.6 (2-11) % Eos % (Auto) 1.1 (0-4) % Baso % (Auto) 0.6 (0-2) % Lymph # (Auto) 2.5 (1.2-4.9) X10*3/uL [place] # (Auto) 0.5 (0.1-1.2) X10*3/uL Eos # (Auto) 0.2 (0.0-0.4) X10*3/uL Baso # (Auto) 0.1 (0.0-0.2) X10*3/uL Abs Immat Gran (auto) 0.06 H (0.00-0.03) X10*3/uL Absolute Neuts (auto) 9.9 H (2.0-8.3) x10*3/uL Absolute Nucleated RBC 0.000 (0.0-0.012) X10*3/uL Nucleated RBC % (auto) 0.0 (0.0-0.2) /100WBC Sodium 141 (135-145) mmol/L Potassium 4.2 (3.3-5.1) mmol/L Chloride 106 (96-108) mmol/L Carbon Dioxide 26 (22-29) mmol/L Anion Gap 13 (12-20) BUN 13 (9-16) mg/dL Creatinine 0.73 (0.5-1.4) mg/dL Estim Creat Clear Calc 106.8 Estimated GFR > 60 Random Glucose 95 (60-115) mg/dL Calcium 9.1 D (8.4-10.2) mg/dL Total Bilirubin 0.5 (0.0-1.0) mg/dL Direct Bilirubin 0.2 (0.0-0.5) mg/dL AST 29 (5-31) U/L ALT 27 (0-31) U/L Alkaline Phosphatase 107 (39-117) U/L Total Protein 7.7 (6.5-8.0) g/dL Albumin 4.4 (3.5-5.0) g/dL Beta HCG, Quant < 2 mIU/mL Urine Color Dark Yellow Urine Appearance Turbid Urine pH 5.5 (5.0-9.0) Ur Specific [place] >= 1.030 H (1.005-1.025) Urine Protein Trace (Neg-Trace) mg/dL Urine Glucose (UA) Negative (Negative) mg/dL Urine Ketones Trace (Negative) mg/dL Urine Blood Moderate (2+) H (Negative) Urine Nitrite Positive H (Negative) Ur Leukocyte Esterase Small (1+) H (Negative) Urine RBC 0-2 (0-2) /HPF Urine WBC 21-50 H (0-5) /HPF Ur Squamous Epith Cells >20 (0-2) /HPF Urine Bacteria 4+ (None Seen) Hyaline Casts 3-5 (0-2) /LPF External Record Review External record reviewed: Inpatient record, Office record and Outpatient record Prescription Management I considered prescription management with: Antibiotic Discharge Plan Discharge Clinical Impression: Urinary tract infection, Dental infection Patient Disposition: Home, Self-Care Instructions: Urinary Tract Infection in Women (DC) Additional Instructions: You were evaluated in the emergency department today for dental pain and vaginal bleeding. Your evaluation determined that you have a dental infection as well as urinary tract infection. You are being treated with an antibiotic that will treat both of these conditions. Please complete the full course of antibiotics as prescribed. It is very important that you follow-up with a dental clinic and a list is provided in your discharge instructions. You were tested for sexually transmitted infections in the emergency department today and will be contacted with any positive results. Return to the emergency department if you develop increasing pain, swelling in your mouth, difficulty swallowing, fever 100.4? F or greater, back or flank pain or any other concerning symptoms. Call or visit any of the clinics below to establish care with a dentist: [facility] [address] [place] [address] [facility] [address] [facility], [address] [address] [place] [address] [facility] [address] [address] [facility] [address] [place] [address] [place] [address] [place] [address] Prescriptions: New cefuroxime axetil 500 mg tablet 500 mg PO Q12H 7 Days Qty: 14 0RF No Action clindamycin HCl 300 mg capsule 300 mg PO Q6H 7 Days Qty: 28 0RF ibuprofen 600 mg tablet 600 mg PO Q8H PRN (Reason: pain) Qty: 20 0RF clindamycin HCl 300 mg capsule 300 mg PO Q6H 7 Days Qty: 28 0RF ibuprofen 600 mg tablet 600 mg PO Q8H PRN (Reason: pain) Qty: 30 0RF chlorhexidine gluconate 0.12 % mouthwash 15 ml buccal BID Qty: 473 0RF penicillin V potassium 500 mg tablet 500 mg PO BID 10 Days Qty: 20 0RF chlorhexidine gluconate [Peridex] 0.12 % mouthwash 15 ml buccal BID Qty: 118 0RF Print Language: Iraqi
[2023-09-27 15:55] LABS: MANUAL DIFF FLAG NO
[2023-09-27 16:39] LABS: Basophils Absolute Auto 0.1 X10*3/uL (0.0-0.2); Basophils Percent Auto 0.6 % (0-2); Eosinophils Absolute Auto 0.2 X10*3/uL (0.0-0.4); Eosinophils Percent Auto 1.1 % (0-4); Hematocrit 44.1 % (37.0-47.0); Hemoglobin 14.6 g/dl (12.0-16.0); Imm Gran Abs Auto 0.06 X10*3/uL (0.00-0.03); Imm Gran Pct Auto 0.5 % (0.0-0.4); Lymphocytes Absolute Auto 2.5 X10*3/uL (1.2-4.9); Lymphocytes Percent Auto 19.3 % (20-40); Mean Corpuscular HGB Conc 33.1 g/dl (31.0-35.0); Mean Corpuscular Hemoglobin 28.8 pg (27.0-33.0); Mean Platelet Volume 9.9 fL (9.4-12.3); Monocytes Absolute Auto 0.5 X10*3/uL (0.1-1.2); Monocytes Percent Auto 3.6 % (2-11); Neutrophils Absolute Auto 9.9 x10*3/uL (2.0-8.3); Neutrophils Percent Auto 74.9 % (45-73); Platelet Count 315 X10*3/uL (160-400); Red Blood Count 5.07 X10*6/uL (4.20-5.50); Red Cell Distribution Width 11.9 % (11.0-16.0); White Blood Count 13.2 X10*3/uL (4.8-10.8)
[2023-09-27 16:43] LABS: Alanine Aminotransferase 27 U/L (0-31); Albumin Level 4.4 g/dL (3.5-5.0); Alkaline Phosphatase 107 U/L (39-117); Anion Gap 13 (12-20); Aspartate Amino Transferase 29 U/L (5-31); Bilirubin Direct 0.2 mg/dL (0.0-0.5); Bilirubin Total 0.5 mg/dL (0.0-1.0); Blood Urea Nitrogen 13 mg/dL (9-16); Calcium 9.1 mg/dL (8.4-10.2); Carbon Dioxide 26 mmol/L (22-29); Chloride 106 mmol/L (96-108); Creatinine Clr Calc Pharmacy 106.8; Estimated Glomerular Filt Rate > 60; Glucose Random 95 mg/dL (60-115); Potassium 4.2 mmol/L (3.3-5.1); Sodium 141 mmol/L (135-145); Total Protein 7.7 g/dL (6.5-8.0)
[2023-09-27 17:00] LABS: HCG Quantitative < 2 mIU/mL
[2023-09-27 17:58] VITALS: BP 118/79; PULSE 75; RESP 16; TEMP 36.9; O2SAT 98
--- OUTSIDE RECORDS SUMMARY | 2023-09-27 17:58 | XMS_ITS | Continuity of Care Document ---
Author Organization [facility] Address [address] [place] [address]- Care Team Providers Care Gambreler Helper Name Role Phone Not on Staff, PCP Primary Care Physician Unavail able Encounter [facility] Date(s): 11/18/22 - 02/09/23 [facility] [address] [place] [address]- Attending Physician: Rigo Simms MD Admitting Physician: Rigo Simms MD Referring Physician: Not on Staff, Referring [...] Name: Suzan Swift DO Position: [facility] APPLIANCE SERVICER MD Member Role: [employer] APPLIANCE SERVICER Physician Address: Address: [address] [place] [address] [address]- Care Team Related Persons Name: ZULLY CLIFTON Address: home [address] [place] [address] Name: WHIT CARTWRIGHT Name: LULA GUY Address: home [address] [place] [address] Name: ABIMAEL ARTHUR Address: AMERCN Address: home [address] [address] Name: AMADA ARTHUR Name: KEIRY RIVER Address: home [address] [place] [address]
--- OUTSIDE RECORDS SUMMARY | 2023-09-27 17:58 | XMS_ITS | Continuity of Care Document ---
Author Organization [facility] Address [address] [place] [address]- Care Team Providers Care Pack Worker Supervisor Name Role Phone Not on Staff, PCP Primary Care Physician Unavail able Encounter [facility] Date(s): 01/10/23 - 02/09/23 [facility] [address] [place] [address]- Attending Physician: Teresa Chandra Admitting Physician: Teresa Chandra Referring Physician: AdmtrTeresa Allergies, Adverse Reactions, Alerts Substance Reaction Severity Status Abilify Active Immunizations Given and Recorded Vaccine Date Status Refusal Reason Measles/Mumps/Rubella Virus Vaccine 11/18/22 Given tetanus/diphtheria/pertussis, acel(Tdap) 01/04/21 Given tetanus/diphtheria/pertussis, acel(Tdap) 04/23/16 Given influenza virus vaccine, inactivated 1 04/09/16 Gi mynro influenza virus vaccine, inactivated 2 04/22/10 Gi [...] Personnel Name: Not on Staff, PCP Position: [facility] Physician (General Medicine) Member Role: PCP Name: Suzan Swift DO Position: [facility] COMPUTER SERVICE TECHNICIAN MD Member Role: [employer]etime COMPUTER SERVICE TECHNICIAN Physician Address: Address: [address] [place] [address] [address]- Care Team Related Persons Name: ZULLY CLIFTON Address: home [address] [place] [address] Name: WHIT CARTWRIGHT Name: LULA GUY Address: home [address] [place] [address] Name: ABIMAEL ARTHUR Address: AMERCN Address: home [address] [address] Name: AMADA ARTHUR Name: KEIRY RIVER Address: home [address] [place] [address]
--- OUTSIDE RECORDS SUMMARY | 2023-09-27 17:58 | XMS_ITS | Continuity of Care Document ---
Author Organization [facility] Address [address] [place] [address]- Care Team Providers Care Screw Eye Assembler Name Role Phone Not on Staff, PCP Primary Care Physician Unavail able Encounter [facility] Date(s): 12/14/22 - 01/13/[address] [address] Attending Physician: Teresa Chandra Admitting Physician: Teresa Chandra Referring Physician: Teresa Chandra Allergies, Adverse Reactions, Alerts Substance Reaction Severity [...] Personnel Name: Not on Staff, PCP Position: [facility] Physician (General Medicine) Member Role: PCP Name: Suzan Swift DO Position: [facility] SENIOR INFORMATION SYSTEMS ARCHITECT MD Member Role: Lifetime SENIOR INFORMATION SYSTEMS ARCHITECT Physician Address: Address: [address] [place] [address] [address]- Care Team Related Persons Name: ZULLY CLIFTON Address: home [address] [place] [address] Name: WHIT CARTWRIGHT Name: LULA GUY Address: [address] [place] [address] Name: ABIMAEL ARTHUR Address: AMERCN Address: home [address] [address] Name: AMADA ARTHUR Name: KEIRY RIVER Address: home [address] [place] [address]
[2023-09-27 18:31] LABS: Appearance Urine Turbid; Color Urine Dark Yellow; Glucose Urine UA Negative (Negative); Leukocyte Esterase Urine Small (1+) (Negative); Nitrite Urine Positive (Negative); PH 5.5 (5.0-9.0); Specific Gravity - Urine >= 1.030 (1.005-1.025); UMIC TRIGGER UACC YES; Urine Blood Moderate (2+) (Negative); Urine Ketones Trace mg/dL (Negative); Urine Protein Trace mg/dL (Neg-Trace)
[2023-09-27 18:56] LABS: Bacteria Urine 4+ (None Seen); RBC Urine 0-2 /HPF (0-2); Squamous Epithelial Cell Urine >20 /HPF (0-2); UACC Culture Trigger YES; WBC Urine 21-50 /HPF (0-5)
[2023-09-27 19:51] VITALS: BP 121/76; PULSE 77; RESP 16; TEMP 36.8; O2SAT 98
[2023-09-28 07:34] LABS: CT PCR NOT DETECTED (Not Detect.); NG PCR NOT DETECTED (Not Detect.)
[2023-09-28 13:26] LABS: BV Int Neg Control Negative (Negative); BV Int Pos Control Positive (Positive)
== END 2023-09-27 19:52 | disposition home or self-care (01) ==
PROVIDERS: Physician Assistant Medical; Registered Nurse Emergency; Emergency Provider Emergency Medicine Emergency Medical Services
DX: N39.0 Urinary tract infection, site not specified (principal); K04.7 Periapical abscess without sinus; N76.0 Acute vaginitis
CPT/HCPCS: 0353U; 36415; 80048; 80076; 81001; 84702; 85025; 87086; 87480; 87510; 87660; 99283

== ENCOUNTER 2024-03-22 04:37 | Emergency (ER) | payer MEDICAID, SELFPAY ==
[2024-03-22 04:40] VITALS: BP 118/70; BP 94/55; PULSE 111; PULSE 115; RESP 18; TEMP 36.8; O2SAT 96; O2SAT 97; BMI 30.8
--- NOTE | 2024-03-22 04:54 | ECG_ITS ---
Test Reason : TACHY Blood Pressure : / mmHG Vent. Rate : 109 BPM Atrial Rate : 109 BPM P-R Int : 152 ms QRS Dur : 094 ms QT Int : 344 ms P-R-T Axes : 046 014 018 degrees QTc Int : 463 ms Sinus tachycardia Incomplete right bundle branch block Nonspecific T wave abnormality Abnormal ECG No previous ECGs available Referred By: Generic ED Physician Electronically Signed By:DARWIN MONIQUE
--- OUTSIDE RECORDS SUMMARY | 2024-03-22 04:59 | XMS_ITS ---
Author Organization [facility] Address [address], [place] [id number] Care Team Providers Care Wharf Operator Name Role Phone No, PCP Primary Care Provider Unavailabl e [facility], Nursing Unavailable [phone] REASON FOR VISIT Referral Encounters Encounter Location Date Provider Diagnosis [facility] [address], [place] [id number] 01/07/2023 Nursing [facility] PLAN OF TREATMENT No Information
--- OUTSIDE RECORDS SUMMARY | 2024-03-22 04:59 | XMS_ITS ---
Author Organization [facility] Address [address] [place], [place] [id number] Care Team Providers Care Chemist Proteins Name Role Phone No, PCP Primary Care Provider Unavailabl e [facility], Nursing Unavailable [phone] REASON FOR VISIT C3 Needs establish care Encounters Encounter Location Date Provider Diagnosis [facility] [address] [place], [place] [id number] 11/16/2022 Nursing [facility] PLAN OF TREATMENT No Information
--- OUTSIDE RECORDS SUMMARY | 2024-03-22 04:59 | XMS_ITS | Patient Health Record ---
Author Organization [facility] Address [address] [place], [place] [id number] Care Team Providers Care Metal Engineering Process Worker Name Role Phone No, PCP Primary Care Provider Unavailabl e [facility], Nursing Unavailable [phone] REASON FOR REFERRAL No Information IMMUNIZATIONS Vaccine Route Administration Date Status Comme nts Tdap IM Intramuscular 01/04/2021 Administered MMR Unknown 11/18/2022 Administered HPV Vaccine IM Intramuscular 07/24/2008 Administered HPV Vaccine IM Intramuscular 09/13/2008 Administered HPV Vaccine IM Intramuscular 01/13/2009 Administered Moderna Covid-19 Vaccine Administration - First Dose (Single Dose 100MCG/0.5ML 1ST) IM Intramuscular 08/28/2020 Administered Moderna Covid-19 Vaccine Administration - Second Dose (Single Dose 100 MCG/0.5ML 2ND) IM Intramuscular 09/26/2020 Administered SOCIAL HISTORY Sex Assigned At : Social History Observation Description Sex Assigned At Unknown PLAN OF TREATMENT No Information Insurance Providers Payer Name Payer Address Payer Phone Subscriber Number Group Number Insured Name Patient Relationship to Insured Coverage Start Date Coverage End Date [place] Medicaid C3 [address] [place], [place] [id number] Ivette Healy Self - patient is the insured 3
--- OUTSIDE RECORDS SUMMARY | 2024-03-22 04:59 | XMS_ITS ---
Author Organization [facility] Address [address] [place], [place] [id number] Care Team Providers Care Eyeglass Cutter Name Role Phone No, PCP Primary Care Provider Unavailabl e [facility], Nursing Unavailable [phone] REASON FOR VISIT office: Establish Care Encounters Encounter Location Date Provider Diagnosis Homeless [address] [place], [place] [id number] 12/10/2022 Nursing [facility] PLAN OF TREATMENT No Information
[2024-03-22 05:21] LABS: Hematocrit 36.2 % (37.0-47.0); Hemoglobin 12.4 g/dl (12.0-16.0); Mean Corpuscular HGB Conc 34.3 g/dl (31.0-35.0); Mean Corpuscular Hemoglobin 29.2 pg (27.0-33.0); Mean Corpuscular Volume 85.4 fL (80.0-98.0); Mean Platelet Volume 9.6 fL (9.4-12.3); Platelet Count 143 X10*3/uL (160-400); Red Blood Count 4.24 X10*6/uL (4.20-5.50); Red Cell Distribution Width 11.9 % (11.0-16.0); White Blood Count 6.3 X10*3/uL (4.8-10.8)
[2024-03-22 05:41] LABS: Troponin-I High Sensitivity 12.2 ng/L (<3.5-17.0)
[2024-03-22 05:45] LABS: Alanine Aminotransferase 7 U/L (0-31); Albumin Level 3.5 g/dL (3.5-5.0); Alkaline Phosphatase 137 U/L (39-117); Anion Gap 14 (12-20); Aspartate Amino Transferase 17 U/L (5-31); Bilirubin Total 0.9 mg/dL (0.0-1.0); Blood Urea Nitrogen 18 mg/dL (9-16); Calcium 8.4 mg/dL (8.4-10.2); Carbon Dioxide 25 mmol/L (22-29); Chloride 106 mmol/L (96-108); Creatinine Clr Calc Pharmacy 93.9; Estimated Glomerular Filt Rate > 60; Glucose Random 87 mg/dL (60-115); Lipase 9 U/L (8-78); Potassium 2.9 mmol/L (3.3-5.1); Sodium 142 mmol/L (135-145); Total Protein 6.4 g/dL (6.5-8.0)
[2024-03-22 05:46] LABS: Neutrophils Percent Manual 55 % (45-73)
[2024-03-22 05:47] LABS: Atypical Lymph Absolute Manual 0.1 x10*3/uL; Atypical Lymphs Percent Manual 1 % (0-6); Band Neutrophils Percent 33 % (3-5); Basophils Abs Manual 0.1 X10*3/uL (0.0-0.2); Basophils Percent Manual 1 % (0-2); Eosinophils Absolute Manual 0.1 X10*3/uL (0.0-0.4); Eosinophils Percent Manual 2 % (0-4); Lymphocytes Absolute Manual 0.4 X10*3/uL (1.2-4.9); Lymphocytes Percent Manual 7 % (20-40); Monocytes Absolute Manual 0.1 X10*3/uL (0.1-1.2); Monocytes Percent Manual 1 % (2-11); Neutrophils Absolute Manual 5.5 X10*3/uL (2.0-8.3)
[2024-03-22 05:48] LABS: Platelet Estimate NORMAL (NORMAL); Platelet Morphology Comment NORMAL; RBC Morphology NORMAL; Toxic Vacuolation PRESENT
[2024-03-22 06:22] VITALS: BP 90/51; PULSE 100; RESP 16; TEMP 36.9; O2SAT 96
--- NOTE | 2024-03-22 06:45 | ED.GENADULT ---
HPI - General Adult General Chief complaint: Nausea/Vomiting/Diarrhea Stated complaint: NAUSEA/VOMITING/ABDOMINAL/ HERION USE Time Seen by Provider: 03/22/24 06:39 Source: patient and EMS Mode of arrival: EMS Limitations: no limitations History of Present Illness ED Provider: Jojo Olivera PA-C HPI narrative: Patient is a 33 year old assigned female at with a history of opiate abuse (on 140mg of methadone) presenting to the emergency department today with nausea, vomiting, and diarrhea after heroin use. Patient states that she used a bag of heroin at 0400 and immediately had nausea, vomiting, and diarrhea. Patient denies any dizziness, lightheadedness, abdominal pain, fever, chills, blurry vision, double vision, loss of vision, chest pain, difficulty breathing, shortness of breath, back pain, night sweats, pain with urination, increased urinary frequency, increased urinary urgency, blood in her urine or stool, syncope or a near syncopal episode, recent trauma or falls, bowel incontinence, bladder incontinence, or any other complaints at this time. Relieving factors: none Exacerbating factors: none Associated symptoms: nausea/vomiting Treatments prior to arrival: none Related Data Home Medications ?Medication ?Instructions ?Recorded ?Confirmed methadone 10 mg/mL oral concentrate 140 mg PO DAILY 03/22/24 03/22/24 Previous Rx's ?Medication ?Instructions ?Recorded chlorhexidine gluconate 0.12 % 15 ml buccal BID #473 mL 08/20/21 mouthwash clindamycin HCl 300 mg capsule 300 mg PO Q6H 7 days #28 caps 08/20/21 ibuprofen 600 mg tablet 600 mg PO Q8H PRN pain #30 tabs 08/20/21 clindamycin HCl 300 mg capsule 300 mg PO Q6H 7 days #28 caps 02/02/22 ibuprofen 600 mg tablet 600 mg PO Q8H PRN pain #20 tabs 02/02/22 chlorhexidine gluconate 0.12 % 15 ml buccal BID #118 mL 09/13/22 mouthwash (Peridex) penicillin V potassium 500 mg 500 mg PO BID 10 days #20 tabs 09/13/22 tablet cefuroxime axetil 500 mg tablet 500 mg PO Q12H 7 days #14 tabs 09/27/23 metronidazole 500 mg tablet 500 mg PO Q12H 7 days #14 tabs 09/30/23 cefuroxime axetil 250 mg tablet 250 mg PO BID 7 days #14 tabs 03/22/24 Allergies Allergy/AdvReac Type Severity Reaction Status Date / Time aripiprazole [From ABILIFY] Allergy Unknown ANAPHYLAXIS Verified 03/22/24 04:44 Review of Systems Constitutional: Constitutional: Reports no additional constitutional complaints, Denies chills, Denies fever(s) and Denies night sweats Eyes: Eyes: Reports no additional eye complaints, Denies blurry vision, Denies change in vision, Denies diplopia, Denies eye discharge, Denies loss of vision and Denies eye pain ENT: Denies dizziness Cardiovascular: Cardiovascular: Reports no additional cardiovascular complaints, Denies chest pain, Denies lightheadedness, Denies Loss of Consciousness and Denies dyspnea Respiratory: Respiratory: Reports no additional respiratory complaints and Denies dyspnea Gastrointestinal: Gastrointestinal: Reports no additional gastrointestinal complaints, Denies abdominal pain, Denies melena, Denies hematochezia, Denies change in bowel habits, Reports change in stool character, Reports diarrhea, Reports nausea and Reports vomiting Genitourinary: Genitourinary: Denies hematuria, Denies urinary frequency, Denies dysuria, Denies urinary incontinence, Denies urinary hesitancy and Denies urinary urgency Musculoskeletal: Musculoskeletal: Reports no additional musculoskeletal complaints, Denies numbness and Denies tingling Neurologic: Denies dizziness, Denies loss of vision, Denies numbness and Denies tingling Psychiatric: Psychiatric: Reports no additional psychiatric complaints Endocrine: Endocrine: Reports no additional endocrine complaints Hematologic/Lymphatic: Hematologic/Lymphatic: Reports no additional hematologic/lymphatic complaints Allergic/Immunologic: Allergic/Immunologic: Reports no additional allergic/immunologic complaints [facility] Past Medical History Attestation statement: The following information was validated with the patient. Source: old records reviewed and nursing notes reviewed Medical History Heroin abuse Social History Social History Alcohol intake: never Smoked in Last 30 Days: Yes Substance Use Type: Heroin Substance Use Frequency: Chronic Longstanding Any prior treatment program specific to substance use: Yes Advance Directives: No Advance Directives Information Provided: Yes Do you have a plan to hurt others: No Plan Patient : No Physical Exam ED Vital Signs: Vital Signs - 24 hr 03/22/24 04:40 03/22/24 06:22 03/22/24 08:59 Temperature 98.3 F 98.4 F 98.4 F Pulse Rate 111 H 100 99 Respiratory Rate 18 16 17 Blood Pressure 94/55 L 90/51 L 94/55 L Pulse Oximetry 96 96 94 Oxygen Delivery Method Room Air Room Air Room Air BMI result Body Mass Index 30.8 Const General: cooperative, no acute distress, alert and awake Nutritional Appearance: well nourished Orientation/consciousness: patient oriented x3 Limitations: no limitations HENMT Head: Yes normal to inspection and Yes atraumatic Ears: hearing grossly normal bilaterally and external ears normal General nose exam: Normal external nose present, no nasal discharge noted and no epistaxis Face and sinus: Yes normal facial exam, No abrasion and No laceration Mouth: Normal oral and palatal mucosa present, no drooling and no muffled voice Eyes General: appearance normal, both eyes and all related structures Periorbital: periorbital findings normal Eyelids: Yes eyelids normal Conjunctivae: conjunctivae normal Pupils: Equal, round and reactive pupils present EOM: EOMs intact bilaterally Neck Neck: Yes normal visual inspection, Yes full ROM and Yes no lymphadenopathy Chest Chest palpation & inspection: normal inspection of the chest Resp Effort & Inspection: normal respiratory effort and able to speak in complete sentences GI Inspection: Yes normal to inspection Palpation (GI): Soft to palpation, not firm, nontender and no guarding Neuro General: patient oriented x3 and moves all extremities Cranial nerves: Yes Equal, round and reactive pupils present Cognition (Neuro): normal cognition Extrem General: Yes normal to inspection, Yes full ROM and Yes capillary refill normal Psych Appearance: grossly normal Mental Status: mental status grossly normal Affect: normal affect Attitude: cooperative Thought process: Normal thought process present Thought content: Normal thought content present Insight: Good insight present (Psych) Medications Administered Discontinued Medications Generic Name Dose Route Start Last Admin Trade Name Freq PRN Reason Stop Dose Admin Acetaminophen 975 mg 03/22/24 09:44 03/22/24 10:17 Acetaminophen 325 Mg Tablet PO 03/22/24 09:45 975 mg ONCE ONE Administration Methadone HCl 140 mg 03/22/24 09:06 03/22/24 10:18 Methadone Hcl 20 Mg/2 Ml Oral.Conc PO 03/22/24 09:07 140 mg ONCE ONE Administration Naloxone HCl 8 mg 03/22/24 09:44 03/22/24 10:18 Naloxone Hcl Nasal Take Home 4 Mg [place] NOSTRILALT 03/22/24 09:45 8 mg ONCE ONE Administration Ondansetron HCl 4 mg 03/22/24 06:47 03/22/24 07:19 Ondansetron Odt 4 Mg Tab.Rapdis TRANSLINGU 03/22/24 06:48 4 mg ONCE ONE Administration Potassium Chloride 40 meq 03/22/24 06:47 03/22/24 07:19 Potassium Chloride Packet 20 Meq Packet PO 03/22/24 06:48 40 meq ONCE ONE Administration Potassium Chloride 20 meq 03/22/24 06:47 03/22/24 07:19 Potassium Chloride Er 20 Meq Tab.Er.Prt PO 03/22/24 06:48 20 meq ONCE ONE Administration Medical Decision Making Medical Decision Making [facility] Narrative: Patient is a 33 year old assigned female at with a history of opiate abuse (currently on 140mg of methadone) presenting to the emergency department today with nausea, vomiting, and diarrhea after heroin use. Patient's physical exam was unremarkable. Patient's blood work showed a hypokalemia of 2.9. Patient's urine showed an acute UTI, given the patient's nausea / vomiting, will treat. Patient's EKG was unremarkable. Patient met with addiction and stated that she does not want any additional resources / help. I explained my physical exam findings as well as all test results to the patient. I answered all questions asked by the patient. I stressed the importance of the patient taking her medication as directed (either prescribed or as the over the counter packaging recommends). I stressed the importance of the patient following up with her primary care provider. I stressed the importance of the patient returning to the emergency department immediately if her symptoms were to worsen or if she were to develop any dizziness, shortness of breath, difficulty breathing, chest pain, blurry vision, loss of vision, nausea, vomiting, abdominal pain, fever, chills, back pain, or any other complaints. Patient verbalized agreement and understanding with this treatment plan and discharge. Differential Diagnosis Differential Diagnoses: The differential diagnosis associated with the presentation includes UTI Nausea Vomiting Opiate use Opiate abuse Admission/Observation Consideration of admission/observation: Escalation of care including admission/observation considered Patient would have been admitted to the hospital had her work up had any findings where hospital admission was appropriate and her clinical presentation warranted hospital admission. Consult Healthcare Provider Management of the patient was discussed with: Behavioral Health Provider (spoke with the addiction team as noted in the MDM Rationale portion of this note.) Lab Data [facility] Lab Attestation statement: I reviewed the patient's lab results. My interpretation of these results are in the MDM Rationale portion of this note. 03/22/24 05:16 03/22/24 05:16 Labs: Lab Results 03/22/24 03/22/24 03/22/24 Range/Units 05:16 10:20 10:21 WBC 6.3 (4.8-10.8) X10*3/uL RBC 4.24 (4.20-5.50) X10*6/uL Hgb 12.4 (12.0-16.0) g/dl Hct 36.2 L (37.0-47.0) % MCV 85.4 (80.0-98.0) fL MCH 29.2 (27.0-33.0) pg MCHC 34.3 (31.0-35.0) g/dl RDW 11.9 (11.0-16.0) % Plt Count 143 L D (160-400) X10*3/uL MPV 9.6 (9.4-12.3) fL Immature Gran % (Auto) Cancelled Neut % (Auto) Cancelled Lymph % (Auto) Cancelled Amador % (Auto) Cancelled Eos % (Auto) Cancelled Baso % (Auto) Cancelled Lymph # (Auto) Cancelled Amador # (Auto) Cancelled Eos # (Auto) Cancelled Baso # (Auto) Cancelled Abs Immat Gran (auto) Cancelled Absolute Neuts (auto) Cancelled Absolute Nucleated RBC 0.000 (0.0-0.012) X10*3/uL Nucleated RBC % (auto) 0.0 (0.0-0.2) /100WBC Neutrophils % (Manual) 55 (45-73) % Band Neutrophils % 33 H (3-5) % Lymphocytes % (Manual) 7 L (20-40) % Atypical Lymphs % (Man) 1 (0-6) % Monocytes % (Manual) 1 L (2-11) % Eosinophils % (Manual) 2 (0-4) % Basophils % (Manual) 1 (0-2) % Abs Neuts (Manual) 5.5 (2.0-8.3) X10*3/uL Lymphocytes # (Manual) 0.4 L (1.2-4.9) X10*3/uL Atyp Lymphs # (Manual) 0.1 x10*3/uL Monocytes # (Manual) 0.1 (0.1-1.2) X10*3/uL Eosinophils # (Manual) 0.1 (0.0-0.4) X10*3/uL Basophils # (Manual) 0.1 (0.0-0.2) X10*3/uL Toxic Vacuolation PRESENT Platelet Estimate NORMAL (NORMAL) Plt Morphology Comment NORMAL RBC Morphology NORMAL Sodium 142 (135-145) mmol/L Potassium 2.9 L* D (3.3-5.1) mmol/L Chloride 106 (96-108) mmol/L Carbon Dioxide 25 (22-29) mmol/L Anion Gap 14 (12-20) BUN 18 H (9-16) mg/dL Creatinine 0.83 (0.5-1.4) mg/dL Estim Creat Clear Calc 93.9 Estimated GFR > 60 Random Glucose 87 (60-115) mg/dL Calcium 8.4 D (8.4-10.2) mg/dL Total Bilirubin 0.9 (0.0-1.0) mg/dL AST 17 (5-31) U/L ALT 7 (0-31) U/L Alkaline Phosphatase 137 H (39-117) U/L Troponin I High Sens 12.2 (<3.5-17.0) ng/L Total Protein 6.4 L (6.5-8.0) g/dL Albumin 3.5 (3.5-5.0) g/dL Lipase 9 (8-78) U/L Urine Color DK YELLOW Urine Appearance Cloudy Urine pH 5.5 (5.0-9.0) Ur Specific Joaquin >= 1.030 H (1.005-1.025) Urine Protein 30 (1+) H (Neg-Trace) mg/dL Urine Glucose (UA) Negative (Negative) mg/dL Urine Ketones Trace (Negative) mg/dL Urine Blood Moderate (2+) H (Negative) Urine Nitrite Positive H (Negative) Ur Leukocyte Esterase Large (3+) H (Negative) Urine RBC 3-5 H (0-2) /HPF Urine WBC >50 (0-5) /HPF Urine WBC Clumps Present Ur Squamous Epith Cells 11-20 (0-2) /HPF Calcium Oxalate Crystal Present Other Crystals Present Urine Bacteria 3+ (None Seen) Hyaline Casts 0-2 (0-2) /LPF Urine Test NEGATIVE (NEGATIVE) Independent Historian Clinical information obtained from an independent historian. History obtained from or confirmed by: EMS (EMS provided additional history and confirmed the history provided by the patient.) Prescription Management I considered prescription management with: Antibiotic (patient prescribed an antibiotic for UTI) Discharge Plan Discharge Clinical Impression: Opiate use, UTI (urinary tract infection) Patient Disposition: Home, Self-Care Instructions: Urinary Tract Infection in Women (DC), Opioid Use Disorder (ED) Additional Instructions: Take your medication as prescribed. Please avoid illicit substnce use. Follow up with your primary care provider. Return to the emergency department immediately if your symptoms worsen or if you develop any dizziness, shortness of breath, difficulty breathing, chest pain, blurry vision, loss of vision, nausea, vomiting, abdominal pain, fever, chills, back pain, or any other complaints. Prescriptions: New cefuroxime axetil 250 mg tablet 250 mg PO BID 7 Days Qty: 14 0RF No Action clindamycin HCl 300 mg capsule 300 mg PO Q6H 7 Days Qty: 28 0RF ibuprofen 600 mg tablet 600 mg PO Q8H PRN (Reason: pain) Qty: 20 0RF clindamycin HCl 300 mg capsule 300 mg PO Q6H 7 Days Qty: 28 0RF ibuprofen 600 mg tablet 600 mg PO Q8H PRN (Reason: pain) Qty: 30 0RF chlorhexidine gluconate 0.12 % mouthwash 15 ml buccal BID Qty: 473 0RF penicillin V potassium 500 mg tablet 500 mg PO BID 10 Days Qty: 20 0RF chlorhexidine gluconate [Peridex] 0.12 % mouthwash 15 ml buccal BID Qty: 118 0RF cefuroxime axetil 500 mg tablet 500 mg PO Q12H 7 Days Qty: 14 0RF metronidazole 500 mg tablet 500 mg PO Q12H 7 Days Qty: 14 0RF methadone 10 mg/mL Concentrate 140 mg PO DAILY Referrals: [facility] Family Medicine [Provider Group] (Call to establish and follow up with a primary care provider. If you already have a primary care provider, please follow up with them.) [facility] Primary Care, [facility] [Provider Group] (Call to establish and follow up with a primary care provider. If you already have a primary care provider, please follow up with them.) [facility] Primary Care,Coni [Provider Group] (Call to establish and follow up with a primary care provider. If you already have a primary care provider, please follow up with them.) Print Language: Maltese
[2024-03-22] MEDS: Potassium Chloride Packet 20 MEQ PACKET 40 MEQ PO (07:19)
[2024-03-22] MEDS: Ondansetron ODT 4 MG TAB.RAPDIS TRANSLINGU (07:19)
[2024-03-22] MEDS: Potassium Chloride ER 20 MEQ TAB.ER.PRT PO (07:19)
--- NOTE | 2024-03-22 07:38 | PC.NURSE ---
report recieved from previous RN. patient resting comfortably on stretcher at this time,states she has a headache, given PO medications for nausea and K replacement per MAR, patient able to tolerate PO. offered patient breakfast tray, patient declined. repositioned in bed with pillow. educated on need for urine sample.
[2024-03-22 08:59] VITALS: BP 94/55; PULSE 99; RESP 17; TEMP 36.9; O2SAT 94
--- NOTE | 2024-03-22 09:04 | PC.NURSE ---
[facility] clinic called to confirm methadone dosing, patient takes 140mg and received her last dose on 03/15 with a take home dose until03/22. spoke with Dannielle at clinic. will fax form to pharmacy
--- NOTE | 2024-03-22 09:13 | HE.PHANOTE ---
Methadone Dose: 140mg, pt got 140mg take home bottle from 03/16 through 03/22, confirmed with nurse Cook, pt last took dose on 03/21. [facility], , per Dannielle.
[2024-03-22] MEDS: Acetaminophen 325 MG TABLET 975 MG PO (10:17)
[2024-03-22] MEDS: Naloxone HCl Nasal TAKE HOME 4 MG SPRAY 8 MG NOSTRILALT (10:18)
[2024-03-22] MEDS: methADONE HCl 20 MG/2 ML ORAL.CONC 140 MG PO (10:18)
[2024-03-22 10:31] LABS: Appearance Urine Cloudy; Color Urine DK YELLOW; Glucose Urine UA Negative (Negative); Leukocyte Esterase Urine Large (3+) (Negative); Nitrite Urine Positive (Negative); PH 5.5 (5.0-9.0); Specific Gravity - Urine >= 1.030 (1.005-1.025); UMIC TRIGGER UACC YES; Urine Blood Moderate (2+) (Negative); Urine Ketones Trace mg/dL (Negative); Urine Protein 30 (1+) mg/dL (Neg-Trace)
[2024-03-22 10:33] LABS: UPreg QC Valid YES; Urine Pregnancy NEGATIVE (NEGATIVE)
[2024-03-22 10:46] LABS: Bacteria Urine 3+ (None Seen); UACC Culture Trigger YES; WBC Urine >50 /HPF (0-5)
[2024-03-22 10:47] LABS: Calcium Oxalate Crystals Urine Present; Hyaline Casts Urine 0-2 /LPF (0-2); Other Crystals Urine Present; WBC Clumps Urine Present
[2024-03-22 11:00] VITALS: BP 94/55; PULSE 99; RESP 17; TEMP 36.9; O2SAT 94
[2024-03-22 11:01] LABS: Amphetamine Screen Urine Not Detected (Not Detect); Barbiturates, Urine Not Detected (Not Detect); Benzodiazepines Screen Urine Not Detected (Not Detect); Buprenorphine Scr Not Detected (Not Detect); Cannabinoid Screen Urine Not Detected (Not Detect); Cocaine Screen Urine Not Detected (Not Detect); Fentanyl, urine POSITIVE (Not Detect); Methadone Screen, Urine Positive (Not Detect); Opiate Screen Urine POSITIVE (Not Detect); Oxycodone Screen Urine Not Detected (Not Detect); Phencyclidine Screen Urine Not Detected (Not Detect)
--- NOTE | 2024-03-22 12:55 | MHC.RECOVRN ---
Met with pt this morning in ED12 prior to discharge after request from provider. Pt had presented after using heroin/fentanyl and experiencing n/v/d. Pt laying in bed, asleep, wakes to voice. Appears comfortable, reporting headache. Pt reports she currently receives 140 mg methadone daily though [facility], has been going to the [facility] for approx 1 year. Pt reports she has decreased use since being on methadone. Currently using heroin/fentanyl, 5-10 bags daily, [place]. Denies other substances. Pt reports she has not experienced n/v/d after use prior to this morning. Reports she uses the same bags consistently. Pt reports she is currently living in [place], reports it is a safe place. Discussed recovery resources and supports, pt declines referrals at this time. Pt plans to continue with [facility], will reach out if questions or concerns arise. Discussed with ED provider.
== END 2024-03-22 11:14 | disposition home or self-care (01) ==
PROVIDERS: Emergency Provider Emergency Medicine
DX: N39.0 Urinary tract infection, site not specified (principal); F11.10 Opioid abuse, uncomplicated; R11.2 Nausea with vomiting, unspecified; R00.0 Tachycardia, unspecified; R19.7 Diarrhea, unspecified; I45.10 Unspecified right bundle-branch block; E87.6 Hypokalemia; Z51.81 Encounter for therapeutic drug level monitoring; Z71.51 Drug abuse counseling and surveillance of drug abuser; Z79.899 Other long term (current) drug therapy
CPT/HCPCS: 36415; 80053; 80307; 81001; 81025; 83690; 84484; 85007; 85027; 87086; 87088; 87186; 93005; 99285

== ENCOUNTER → 2024-03-22 04:54 | Outpatient (BNV) | payer MEDICAID, SELFPAY | PROVIDERS: Emergency Provider Emergency Medicine; Visit Provider Internal Medicine | DX: R00.0 Tachycardia, unspecified (principal); I45.19 Other right bundle-branch block; R94.31 Abnormal electrocardiogram [ECG] [EKG] | CPT/HCPCS: 93010 ==

== ENCOUNTER 2024-04-14 06:48 | Emergency (ER) | payer MEDICAID, SELFPAY ==
[2024-04-14 07:05] VITALS: BP 127/84; PULSE 89; RESP 18; TEMP 36.6; O2SAT 95; BMI 29.4
--- NOTE | 2024-04-14 07:22 | ED.DENTAL ---
HPI - Dental/Oral General Chief complaint: Dental/Oral Stated complaint: swollen mouth Time Seen by Provider: 04/14/24 07:14 Source: patient Mode of arrival: ambulatory Limitations: no limitations History of Present Illness ED Provider: DR. Lira HPI Narrative: 33 year female came in for evaluation of diffuse upper gum swelling and pain, patient is known to have a widespread dental decay and poor oral hygiene, patient also is a smoker. Related Data Home Medications ?Medication ?Instructions ?Recorded ?Confirmed methadone 10 mg/mL oral concentrate 140 mg PO DAILY 03/22/24 03/22/24 Previous Rx's ?Medication ?Instructions ?Recorded chlorhexidine gluconate 0.12 % 15 ml buccal BID #473 mL 08/20/21 mouthwash clindamycin HCl 300 mg capsule 300 mg PO Q6H 7 days #28 caps 08/20/21 ibuprofen 600 mg tablet 600 mg PO Q8H PRN pain #30 tabs 08/20/21 clindamycin HCl 300 mg capsule 300 mg PO Q6H 7 days #28 caps 02/02/22 ibuprofen 600 mg tablet 600 mg PO Q8H PRN pain #20 tabs 02/02/22 chlorhexidine gluconate 0.12 % 15 ml buccal BID #118 mL 09/13/22 mouthwash (Peridex) penicillin V potassium 500 mg 500 mg PO BID 10 days #20 tabs 09/13/22 tablet cefuroxime axetil 500 mg tablet 500 mg PO Q12H 7 days #14 tabs 09/27/23 metronidazole 500 mg tablet 500 mg PO Q12H 7 days #14 tabs 09/30/23 cefuroxime axetil 250 mg tablet 250 mg PO BID 7 days #14 tabs 03/22/24 amoxicillin 500 mg tablet 500 mg PO BID #14 tabs 04/14/24 Allergies Allergy/AdvReac Type Severity Reaction Status Date / Time aripiprazole [From ABILIFY] Allergy Unknown ANAPHYLAXIS Verified 04/14/24 07:06 Review of Systems Review of Systems: All other systems are reviewed and are negative Constitutional: Reports as per HPI and Reports no additional constitutional complaints Eyes: Reports as per HPI and Reports no additional eye complaints Reports system reviewed and no additional complaints, except as documented Cardiovascular: Reports as per HPI and Reports no additional cardiovascular complaints Respiratory: Reports as per HPI and Reports no additional respiratory complaints Gastrointestinal: Reports as per HPI and Reports no additional gastrointestinal complaints Genitourinary: Reports no additional female genitourinary complaints Musculoskeletal: Reports no additional musculoskeletal complaints Skin/Breast: Reports system reviewed and no additional complaints, except as docu Psychiatric: Reports no additional psychiatric complaints Endocrine: Reports no additional endocrine complaints Hematologic/Lymphatic: Reports no additional hematologic/lymphatic complaints Allergic/Immunologic: Reports no additional allergic/immunologic complaints Reports system reviewed and no additional complaints, except as documented and Reports Abnormal speech present [facility] Past Medical History Medical History Heroin abuse Social History Social History Alcohol intake: never Substance Use Type: Heroin Physical Exam Vital Signs: Vital Signs: Last Vital Signs Temp 98 F 04/14/24 07:05 Pulse 89 04/14/24 07:05 Resp 18 04/14/24 07:05 BP 127/84 04/14/24 07:05 Pulse Ox 95 04/14/24 07:05 O2 Del Method Room Air 04/14/24 07:05 BMI result Body Mass Index 29.4 Vital signs have been reviewed and appear to be correct. Blood pressure elevated. Heart rate normal. Respiratory rate normal. Temperature normal. Oxygen saturation normal. Appearance: Alert. Oriented X3. No acute distress. Head: Normal external exam. Normocephalic. Atraumatic. No Lopez signs noted. No raccoon eyes noted . Mouth: Widespread dental decay with tenderness to the upper gum, no fluctuation, no focal abscess formation. Eyes: PERRLA. EOMI. Conjunctiva and sclera normal. Eyelids normal. ENT: TM's Normal. Pharynx normal. Uvula midline. Moist mucous membranes. No trismus noted. No drooling noted. No muffled voice noted. Neck: Normal inspection. Neck supple. FROM. No adenopathy. Thyroid Normal. No meningeal signs. No neck mass noted. CVS: Normal heart rate and rhythm. Heart sound normal. No murmurs noted. Pulses normal throughout. Respiratory: No respiratory distress. Painless inspiration. Breath sounds normal. No wheezes/rales/rhonchi noted. Chest nontender. No accessory muscle usage noted or decreased air movement noted. Abdomen: Soft and nontender. Bowel sounds normal in all 4 quadrants. No distention noted. No organomegaly noted. No visible injury noted. Back: No CVA tenderness. Full range of motion noted. Skin: Skin warm and dry. Normal skin color. Normal skin turgor. No rashes/lesions/lacerations noted. Extremities: No lower extremity edema. Extremities exhibit normal range of motion. Extremities nontender. Neuro: Oriented X 3. Cranial nerve exam: II-XII are grossly intact No motor deficit. No sensory deficit. Reflexes normal. Course Reevaluation(s) Reevaluation #1: Gingivitis. Started on amoxicillin and NSAIDs with follow-up with dentist. Time: 07:25 Medical Decision Making Differential Diagnosis Differential Diagnoses: The differential diagnosis associated with the presentation includes ( Gingivitis, dental abscess, dental infection.) Admission/Observation Consideration of admission/observation: Escalation of care including admission/observation considered Discharge Plan Discharge Clinical Impression: Toothache, Gingivitis Patient Disposition: Home, Self-Care Instructions: Gingivitis (ED) Additional Instructions: follow-up with your dentist in 1 week. Prescriptions: New amoxicillin 500 mg tablet 500 mg PO BID Qty: 14 0RF No Action clindamycin HCl 300 mg capsule 300 mg PO Q6H 7 Days Qty: 28 0RF ibuprofen 600 mg tablet 600 mg PO Q8H PRN (Reason: pain) Qty: 20 0RF clindamycin HCl 300 mg capsule 300 mg PO Q6H 7 Days Qty: 28 0RF ibuprofen 600 mg tablet 600 mg PO Q8H PRN (Reason: pain) Qty: 30 0RF chlorhexidine gluconate 0.12 % mouthwash 15 ml buccal BID Qty: 473 0RF penicillin V potassium 500 mg tablet 500 mg PO BID 10 Days Qty: 20 0RF chlorhexidine gluconate [Peridex] 0.12 % mouthwash 15 ml buccal BID Qty: 118 0RF cefuroxime axetil 500 mg tablet 500 mg PO Q12H 7 Days Qty: 14 0RF metronidazole 500 mg tablet 500 mg PO Q12H 7 Days Qty: 14 0RF methadone 10 mg/mL Concentrate 140 mg PO DAILY cefuroxime axetil 250 mg tablet 250 mg PO BID 7 Days Qty: 14 0RF Print Language: [place]
[2024-04-14] MEDS: Ibuprofen 600 MG TABLET PO (07:40)
[2024-04-14] MEDS: Amoxicillin 500 MG CAPSULE PO (07:40)
--- NOTE | 2024-04-14 07:42 | PC.NURSE ---
a&ox4. vss and up to date. pt presents to the ED c/o ongoing gum swelling/pain x 1 week. pt denies any injury. reports pain that worsens w/ eating, brushing, and any involvement w/ teeth. pt denies seeing a dentist. pt also reports some chills - denies any objective fevers. pt remains afebrile during stay today. gums display w/ erythema/inflammation. abx administered per provider order. airway patent. pt able to speak in full/clear sentences. managing secretions w/o difficulty. no sob/wob noted. respirations even/unlabored. plan of care ongoing. call tom placed within reach.
[2024-04-14 09:04] VITALS: BP 116/73; PULSE 75; RESP 16; TEMP 36.7; O2SAT 95
== END 2024-04-14 09:05 | disposition home or self-care (01) ==
PROVIDERS: Emergency Provider Emergency Medicine
DX: K05.10 Chronic gingivitis, plaque induced (principal); K08.89 Other specified disorders of teeth and supporting structures; F17.200 Nicotine dependence, unspecified, uncomplicated; F11.20 Opioid dependence, uncomplicated; Z79.899 Other long term (current) drug therapy
CPT/HCPCS: 99283; 99284

== ENCOUNTER 2024-10-22 07:22 | Emergency (ER) | payer MEDICAID, SELFPAY ==
[2024-10-22 07:29] VITALS: BP 129/70; PULSE 80; O2SAT 97
[2024-10-22 07:40] VITALS: BP 124/74; PULSE 80; RESP 16; TEMP 36.6; O2SAT 96; BMI 33.3
--- NOTE | 2024-10-22 08:16 | ED_ITS ---
HPI - Dental/Oral General Chief complaint: Dental/Oral Stated complaint: TOOTH PAIN UPPER JAW PER EMS Time Seen by Provider: 10/22/24 08:04 Source: patient, RN notes reviewed and old records reviewed Mode of arrival: ambulatory History of Present Illness ED Provider: Yue Lora PA-C HPI Narrative: 33-year-old female with no significant past medical history presenting to the ED complaining of right upper dental/facial pain x2 weeks. Denies ear pain, sore throat, difficulty or inability to swallow, recent dental procedures, fever/chills Related Data Home Medications ?Medication ?Instructions ?Recorded ?Confirmed methadone 10 mg/mL oral concentrate 140 mg PO DAILY 03/22/24 03/22/24 Previous Rx's ?Medication ?Instructions ?Recorded chlorhexidine gluconate 0.12 % 15 ml buccal BID #473 mL 08/20/21 mouthwash clindamycin HCl 300 mg capsule 300 mg PO Q6H 7 days #28 caps 08/20/21 ibuprofen 600 mg tablet 600 mg PO Q8H PRN pain #30 tabs 08/20/21 clindamycin HCl 300 mg capsule 300 mg PO Q6H 7 days #28 caps 02/02/22 ibuprofen 600 mg tablet 600 mg PO Q8H PRN pain #20 tabs 02/02/22 chlorhexidine gluconate 0.12 % 15 ml buccal BID #118 mL 09/13/22 mouthwash (Peridex) penicillin V potassium 500 mg 500 mg PO BID 10 days #20 tabs 09/13/22 tablet cefuroxime axetil 500 mg tablet 500 mg PO Q12H 7 days #14 tabs 09/27/23 metronidazole 500 mg tablet 500 mg PO Q12H 7 days #14 tabs 09/30/23 cefuroxime axetil 250 mg tablet 250 mg PO BID 7 days #14 tabs 03/22/24 amoxicillin 500 mg tablet 500 mg PO BID #14 tabs 04/14/24 acetaminophen 500 mg tablet 500 mg PO Q6H PRN fever or pain 10/22/24 (Tylenol Extra Strength) #14 tabs amoxicillin 875 mg-potassium 1 tab PO BID 7 days #14 tabs 10/22/24 clavulanate 125 mg tablet ibuprofen 800 mg tablet 800 mg PO Q8H PRN pain #14 tabs 10/22/24 Allergies Allergy/AdvReac Type Severity Reaction Status Date / Time aripiprazole [From ABILIFY] Allergy Unknown ANAPHYLAXIS Verified 10/22/24 07:41 Review of Systems Review of Systems: Yes all other systems are reviewed and are negative Constitutional: Constitutional: Reports as per [facility] Past Medical History Attestation statement: The following information was validated with the patient. Source: old records reviewed Medical History Heroin abuse Social History Social History Alcohol intake: never Smoked in Last 30 Days: No Use of substances other than those prescribed or required for medical reasons: No Substance Use Type: Heroin Advance Directives: No Advance Directives Information Provided: Yes Do you have a plan to hurt others: No Plan Patient : No Physical Exam Vital Signs: Vital Signs: Last Vital Signs Temp 98 F 10/22/24 08:37 Pulse 80 10/22/24 08:37 Resp 16 10/22/24 08:37 BP 124/74 10/22/24 08:37 Pulse Ox 96 10/22/24 08:37 O2 Del Method Room Air 10/22/24 08:37 BMI result Body Mass Index 33.3 Const: General: cooperative, healthy appearing and no acute distress Orientation/consciousness: patient oriented x3 Limitations: no limitations HEENT: Other: No appreciable facial swelling. Diffuse dental use DKA. Right upper gingival swelling with reproducible focal tenderness. No fluctuance/induration or erythema. Head: Yes normal to inspection and Yes atraumatic Ears: hearing grossly normal bilaterally, TM's normal bilaterally and mastoids normal General nose exam: Normal external nose present Face and sinus: Yes normal facial exam Mouth: Normal oral and palatal mucosa present and no drooling Teeth and gingiva: poor dentition Throat: Yes posterior oropharynx normal, Yes tonsils normal, Yes uvula midline, No peritonsillar mass, No uvula laterally displaced and No uvular edema Eyes: General: appearance normal, both eyes and all related structures EOM: EOMs intact bilaterally Neck: Neck: Yes normal visual inspection and Yes no meningeal signs Resp: Effort & Inspection: normal respiratory effort, no respiratory distress and no stridor Cardio: Rate: regular rate Skin: Rashes: no rashes Wounds: no wounds Neuro: General: patient oriented x3, tone normal and no meningeal signs Cranial nerves: Yes CN's II-XII intact bilaterally Gait exam (Neuro): Normal gait present Extrem: General: Yes normal to inspection Medical Decision Making Medical Decision Making MDM Narrative: 33-year-old female with no significant past medical history presenting to the ED complaining of right upper dental/facial pain x2 weeks. On exam vital signs stable, NAD, nontoxic appearing, physical exam as noted above concerning for gingivitis. No evidence of dental abscess or cellulitis. No evidence of acute otitis media/externa. Low suspicion for mastoiditis. No evidence of [employer] Plan: P.o. antibiotics, dentistry follow-up Please refer to course for remaining clinical decision making, interpretation of labs/imaging results, and discussions with consultants and/or family members. Results discussed with patient including worrisome signs and symptoms and strict return precautions, and when to return to the emergency department. They verbalized understanding and feel safe for discharge at this time. Differential Diagnosis Differential Diagnoses: The differential diagnosis associated with the presentation includes As above External Record Review External record reviewed: Inpatient record, Office record, Outpatient record, Prior outpatient labs, Prior outpatient radiology, Primary care record and Outside ED record Tests considered The following testing was considered but not selected: As above Prescription Management I considered prescription management with: Pain Medication and Antibiotic Chronic Conditions Patient?s care impacted by: Other Social Determinants Patient?s care significantly limited by Social Determinants of Health including: Alcoholism and drug addiction in family, Problems related to primary support group and Other Social Determinant of Health Discharge Plan Discharge Clinical Impression: Gingivitis Patient Disposition: Home, Self-Care Instructions: Gingivitis (DC) Additional Instructions: Augmentin as an antibiotic please take as prescribed until completion. In addition take ibuprofen and Tylenol Return to the ED if pain persists or worsens you develop any facial swelling, difficulty or inability to swallow or drainage from your mouth [id number] [place] [address] Prescriptions: New amoxicillin-pot clavulanate 875-125 mg tablet 1 tab PO BID 7 Days Qty: 14 0RF ibuprofen 800 mg tablet 800 mg PO Q8H PRN (Reason: pain) Qty: 14 0RF acetaminophen [Tylenol Extra Strength] 500 mg tablet 500 mg PO Q6H PRN (Reason: fever or pain) Qty: 14 0RF No Action clindamycin HCl 300 mg capsule 300 mg PO Q6H 7 Days Qty: 28 0RF ibuprofen 600 mg tablet 600 mg PO Q8H PRN (Reason: pain) Qty: 20 0RF clindamycin HCl 300 mg capsule 300 mg PO Q6H 7 Days Qty: 28 0RF ibuprofen 600 mg tablet 600 mg PO Q8H PRN (Reason: pain) Qty: 30 0RF chlorhexidine gluconate 0.12 % mouthwash 15 ml buccal BID Qty: 473 0RF penicillin V potassium 500 mg tablet 500 mg PO BID 10 Days Qty: 20 0RF chlorhexidine gluconate [Peridex] 0.12 % mouthwash 15 ml buccal BID Qty: 118 0RF cefuroxime axetil 500 mg tablet 500 mg PO Q12H 7 Days Qty: 14 0RF metronidazole 500 mg tablet 500 mg PO Q12H 7 Days Qty: 14 0RF methadone 10 mg/mL Concentrate 140 mg PO DAILY cefuroxime axetil 250 mg tablet 250 mg PO BID 7 Days Qty: 14 0RF amoxicillin 500 mg tablet 500 mg PO BID Qty: 14 0RF Interventions: ED Discharge Assessment Last Done: 10/22/24 08:37 Discharge Date/Time: 10/22/24 08:39 Print Language: [place]
[2024-10-22 08:37] VITALS: BP 124/74; PULSE 80; RESP 16; TEMP 36.6; O2SAT 96
== END 2024-10-22 08:39 | disposition home or self-care (01) ==
PROVIDERS: Emergency Provider Emergency Medicine
DX: K05.10 Chronic gingivitis, plaque induced (principal); K08.89 Other specified disorders of teeth and supporting structures
CPT/HCPCS: 99283; 99284

== ENCOUNTER 2024-11-22 10:09 | Emergency (ER) | payer MEDICAID, SELFPAY ==
[2024-11-22 10:25] VITALS: BP 125/79; PULSE 92; RESP 16; TEMP 37.1; O2SAT 97; BMI 34.0
--- NOTE | 2024-11-22 10:33 | ED_ITS ---
HPI - General Adult General Chief complaint: Dental/Oral Stated complaint: Facial pain Time Seen by Provider: 11/22/24 10:33 Source: patient Mode of arrival: ambulatory Limitations: no limitations History of Present Illness ED Provider: Jojo Olivera PA-C HPI narrative: Patient is a 33 year old assigned female at with a history of opiate use / abuse on methadone and poor dentition presenting to the emergency department today with right upper dental pain. Patient states that she has had right upper dental pain for days and has no idea when the last time she went to a dentist. Patient denies any dizziness, lightheadedness, abdominal pain, nausea, vomiting, fever, chills, blurry vision, double vision, loss of vision, chest pain, difficulty breathing, shortness of breath, back pain, night sweats, pain with urination, increased urinary frequency, increased urinary urgency, blood in her urine or stool, syncope or a near syncopal episode, recent trauma or falls, bowel incontinence, bladder incontinence, or any other complaints at this time. Onset (ago): day(s) Location: mouth Relieving factors: none Associated symptoms: denies other symptoms Treatments prior to arrival: none Related Data Home Medications ?Medication ?Instructions ?Recorded ?Confirmed methadone 10 mg/mL oral concentrate 140 mg PO DAILY 03/22/24 Previous Rx's ?Medication ?Instructions ?Recorded chlorhexidine gluconate 0.12 % 15 ml buccal BID #473 m L 08/20/21 mouthwash clindamycin HCl 300 mg capsule 300 mg PO Q6H 7 days #2 8 caps 08/20/21 ibuprofen 600 mg tablet 600 mg PO Q8H PRN pain #30 t abs 08/20/21 clindamycin HCl 300 mg capsule 300 mg PO Q6H 7 days #2 8 caps 02/02/22 ibuprofen 600 mg tablet 600 mg PO Q8H PRN pain #20 t abs 02/02/22 chlorhexidine gluconate 0.12 % 15 ml buccal BID #118 m L 09/13/22 mouthwash (Peridex) penicillin V potassium 500 mg 500 mg PO BID 10 days #2 0 tabs 09/13/22 tablet cefuroxime axetil 500 mg tablet 500 mg PO Q12H 7 days #14 tabs 09/27/23 metronidazole 500 mg tablet 500 mg PO Q12H 7 days #14 tabs 09/30/23 cefuroxime axetil 250 mg tablet 250 mg PO BID 7 days # 14 tabs 03/22/24 amoxicillin 500 mg tablet 500 mg PO BID #14 tabs 04/14 acetaminophen 500 mg tablet 500 mg PO Q6H PRN fever or pain 10/22/24 (Tylenol Extra Strength) #14 tabs amoxicillin 875 mg-potassium 1 tab PO BID 7 days #14 t abs 10/22/24 clavulanate 125 mg tablet ibuprofen 800 mg tablet 800 mg PO Q8H PRN pain #14 t abs 10/22/24 naproxen 500 mg tablet 500 mg PO BID 7 days #14 tab s 11/22/24 penicillin V potassium 500 mg 500 mg PO BID 10 days #2 0 tabs 11/22/24 tablet Allergies Allergy/AdvReac Type Severity Reaction Status Date / Time aripiprazole (From [facility]) Allergy Unknown ANAPHYLAXIS Verified 11/22/24 10:27 Review of Systems Constitutional: Constitutional: Reports no additional constitutional complaints, Denies chills, Denies fever(s) and Denies night sweats Eyes: Eyes: Reports no additional eye complaints, Denies blurry vision, Denies change in vision, Denies diplopia, Denies eye discharge, Denies loss of vision and Denies eye pain ENT: Denies dizziness Comments: right upper dental pain Cardiovascular: Cardiovascular: Reports no additional cardiovascular complaints, Denies chest pain, Denies lightheadedness, Denies Loss of Consciousness and Denies dyspnea Respiratory: Respiratory: Reports no additional respiratory complaints and Denies dyspnea Gastrointestinal: Gastrointestinal: Reports no additional gastrointestinal complaints, Denies abdominal pain, Denies melena, Denies hematochezia, Denies change in bowel habits and Denies change in stool character Genitourinary: Genitourinary: Denies hematuria, Denies urinary frequency, Denies dysuria, Denies urinary incontinence, Denies urinary hesitancy and Denies urinary urgency Musculoskeletal: Musculoskeletal: Reports no additional musculoskeletal complaints, Denies numbness and Denies tingling Neurologic: Denies dizziness, Denies loss of vision, Denies numbness and Denies tingling Psychiatric: Psychiatric: Reports no additional psychiatric complaints Endocrine: Endocrine: Reports no additional endocrine complaints Hematologic/Lymphatic: Hematologic/Lymphatic: Reports no additional hematologic/lymphatic complaints Allergic/Immunologic: Allergic/Immunologic: Reports no additional allergic/immunologic complaints [facility] Past Medical History Attestation statement: The following information was validated with the patient. Source: old records reviewed and nursing notes reviewed Medical History Heroin abuse Social History Social History Alcohol intake: never Smoked in Last 30 Days: Yes Use of substances other than those prescribed or required for medical reasons: No Substance Use Type: Heroin and Marijuana Substance Use Frequency Other:: former use Any prior treatment program specific to substance use: Yes Advance Directives: No Advance Directives Information Provided: Yes Do you have a plan to hurt others: No Plan Patient : No Physical Exam ED Vital Signs: Vital Signs - 24 hr 11/22/24 10:25 11/22/24 10:59 Temperature 98.7 F 98.2 F Pulse Rate 92 88 Respiratory Rate 16 16 Blood Pressure 125/79 121/68 Pulse Oximetry 97 98 Oxygen Delivery Method Room Air Room Air BMI result Body Mass Index 34.0 Const General: cooperative, no acute distress, alert and awake Nutritional Appearance: well nourished Orientation/consciousness: patient oriented x3 HENMT Head: Yes normal to inspection and Yes atraumatic Ears: hearing grossly normal bilaterally and external ears normal General nose exam: Normal external nose present, no nasal discharge noted and no epistaxis Face and sinus: Yes normal facial exam, No abrasion and No laceration Mouth: Normal oral and palatal mucosa present, no drooling and no muffled voice Teeth and gingiva: caries, poor dentition and other (erythema / swelling around the right upper remaining teeth) Eyes General: appearance normal, both eyes and all related structures Periorbital: periorbital findings normal Eyelids: Yes eyelids normal Conjunctivae: conjunctivae normal Pupils: Equal, round and reactive pupils present EOM: EOMs intact bilaterally Neck Neck: Yes normal visual inspection, Yes full ROM and Yes no lymphadenopathy Resp Effort & Inspection: normal respiratory effort and able to speak in complete sentences Neuro General: patient oriented x3, moves all extremities and CN's II-XI intact bilaterally Cranial nerves: Yes Equal, round and reactive pupils present Cognition (Neuro): normal cognition Extrem General: Yes normal to inspection, Yes full ROM and Yes capillary refill normal Psych Appearance: grossly normal Mental Status: mental status grossly normal Affect: normal affect Attitude: cooperative Thought process: Normal thought process present Thought content: Normal thought content present Insight: Good insight present (Psych) Medications Administered Discontinued Medications Generic Name Dose Route Start Last Admin Trade Name Radames PRN Reason Stop Dose Admin Acetaminophen 975 mg 11/22/24 10:48 11/22/24 10:56 Acetaminophen 325 Mg Tablet PO 11/22/24 10:49 975 mg ONCE ONE Administration Ibuprofen 600 mg 11/22/24 10:50 11/22/24 10:56 Ibuprofen 600 Mg Tablet PO 11/22/24 10:51 600 mg ONCE ONE Administration Medical Decision Making Medical Decision Making MDM Narrative: Patient is a 33 year old assigned female at with a history of opiate use / abuse on methadone and poor dentition presenting to the emergency department today with right upper dental pain. Patient's physical exam was as noted in the physical exam portion of this note. Patient has extensive dental disease with multiple missing teeth and those that are remaining are cavitous and cracked. The remaining tooth in the upper right portion of her mouth has some surrounding erythema and swelling but no fluctuance. I explained my physical exam findings to the patient. I answered all questions asked by the patient. I stressed the importance of the patient taking her medication as directed (either prescribed or as the over the counter packaging recommends). I stressed the importance of the patient following up with her primary care provider and a dentist. I stressed the importance of the patient returning to the emergency department immediately if her symptoms were to worsen or if she were to develop any dizziness, shortness of breath, difficulty breathing, chest pain, blurry vision, loss of vision, nausea, vomiting, abdominal pain, fever, chills, back pain, or any other complaints. Patient verbalized agreement and understanding with this treatment plan and discharge. Differential Diagnosis Differential Diagnoses: The differential diagnosis associated with the presentation includes Dental caries Dental infection Dental abscess Admission/Observation Consideration of admission/observation: Escalation of care including admission/o bservation considered Patient would have been admitted to the hospital had her clinical presentation warranted hospital admission. Prescription Management I considered prescription management with: Pain Medication (patient prescribed pain medication for dental pain) and Antibiotic (patient prescribed an antibiotic for dental infection) Discharge Plan Discharge Clinical Impression: Dental caries, Dental abscess Patient Disposition: Home, Self-Care Instructions: Dental Abscess (ED) Additional Instructions: Call or visit any of the clinics below to establish with a dentist: [facility] [address] [place] [address] [facility] [address] [place] [address] [facility] [address] [facility], [address] [address] [place] [address] [facility] [address] [place] [address] [facility] [address] [place] [address] [place] [address] [place] [address] Follow up with your primary care provider and a dentist. Return to the emergency department immediately if your symptoms worsen or if you develop any numbness, tingling, dizziness, shortness of breath, difficulty breathing, chest pain, blurry vision, loss of vision, nausea, vomiting, abdominal pain, fever, chills, back pain, or any other complaints. Please see the information below about our Patient Portal. If you are not yet enrolled in the [facility] Patient Portal, you will receive an enrollment email invitation following your visit to any [facility] setting. You may also self-enroll in the Patient Portal by visiting our website: [email or web address] The following information is required to access the Patient Portal: - Your [facility] Medical Record Number - Your personal home email address (must match what is in your electronic medical record, Registration staff can assist with this) - Name - Date of Capabilities of the Patient Portal: - Message some providers - View upcoming appointments - Access your health summary, medical history, and visit history - View current conditions and allergies - View procedure and lab results - View your medications, including guidelines, side effects, and precautions - Complete pre-appointment questionnaires requested by your provider - Ready summary reports of your office visits and procedures To access the Patient Portal Mobile Tim, follow these directions: - Search [employer] in the Tim Store or [employer] Store - Download the Tim - Search for [facility] - Enter your login/password Prescriptions: New penicillin V potassium 500 mg tablet 500 mg PO BID 10 Days Qty: 20 0RF naproxen 500 mg tablet 500 mg PO BID 7 Days Qty: 14 0RF No Action clindamycin HCl 300 mg capsule 300 mg PO Q6H 7 Days Qty: 28 0RF ibuprofen 600 mg tablet 600 mg PO Q8H PRN (Reason: pain) Qty: 20 0RF clindamycin HCl 300 mg capsule 300 mg PO Q6H 7 Days Qty: 28 0RF ibuprofen 600 mg tablet 600 mg PO Q8H PRN (Reason: pain) Qty: 30 0RF chlorhexidine gluconate 0.12 % mouthwash 15 ml buccal BID Qty: 473 0RF penicillin V potassium 500 mg tablet 500 mg PO BID 10 Days Qty: 20 0RF chlorhexidine gluconate [Peridex] 0.12 % mouthwash 15 ml buccal BID Qty: 118 0RF cefuroxime axetil 500 mg tablet 500 mg PO Q12H 7 Days Qty: 14 0RF metronidazole 500 mg tablet 500 mg PO Q12H 7 Days Qty: 14 0RF methadone 10 mg/mL Concentrate 140 mg PO DAILY cefuroxime axetil 250 mg tablet 250 mg PO BID 7 Days Qty: 14 0RF amoxicillin 500 mg tablet 500 mg PO BID Qty: 14 0RF amoxicillin-pot clavulanate 875-125 mg tablet 1 tab PO BID 7 Days Qty: 14 0RF ibuprofen 800 mg tablet 800 mg PO Q8H PRN (Reason: pain) Qty: 14 0RF acetaminophen [Tylenol Extra Strength] 500 mg tablet 500 mg PO Q6H PRN (Reason: fever or pain) Qty: 14 0RF Referrals: [facility] Family Medicine [Provider Group, Family Practice] Referral Note: Call to establish and follow up with a primary care provider. If you already have a primary care provider, please follow up with them. Interventions: ED Discharge Assessment Last Done: 11/22/24 10:59 Discharge Date/Time: 11/22/24 11:01 Print Language: Lao
[2024-11-22] MEDS: Acetaminophen 325 MG TABLET 975 MG PO (10:56)
[2024-11-22] MEDS: Ibuprofen 600 MG TABLET PO (10:56)
[2024-11-22 10:59] VITALS: BP 121/68; PULSE 88; RESP 16; TEMP 36.8; O2SAT 98
--- NOTE | 2024-11-22 10:59 | PC.NURSE ---
pt medicated for 9/10 pain per order, pt to discharge home with abx and pain medications.
--- OUTSIDE RECORDS SUMMARY | 2024-11-22 12:01 | XMS_ITS | Patient Health Record ---
Author Organization [facility] Address [address], [place] [id number] Care Team Providers Care Safety Professional Name Role Phone [employer] - DO NOT USE, no PCP Primary Care Prov ider Unavailable [facility], Nursing Unavailable [phone] Reason For Referral No Information Immunizations Vaccine Route Administration Date Status Comme nts [...] 100 MCG/0.5ML 2ND) IM Intramuscular 09/26/2020 Administered Encounters Encounter Location Date Provider Diagnosis [facility] [address] [place], [place] [id number] 10/30/2024 Nursing [facility] Plan Of Treatment No Information Insurance Providers Payer Name Payer Address Payer Phone Subscriber Number Group Number Insured Name Patient Relationship to Insured Coverage Start Date Coverage End Date MD Medicaid C3 [address] [place], [place] [id number] Ivette Healy Self - patient is the insured 3
== END 2024-11-22 11:01 | disposition home or self-care (01) ==
PROVIDERS: Emergency Provider Emergency Medicine
DX: K04.7 Periapical abscess without sinus (principal); K02.9 Dental caries, unspecified; R51.9 Headache, unspecified; Z79.899 Other long term (current) drug therapy
CPT/HCPCS: 99283; 99284

== ENCOUNTER 2025-01-22 | Emergency (ER) | payer MEDICAID, SELFPAY ==
[2025-01-22 00:08] VITALS: BP 120/84; BP 127/70; PULSE 86; PULSE 97; RESP 18; TEMP 36.9; O2SAT 97; O2SAT 98; BMI 31.6
== END 2025-01-22 03:05 | disposition left against medical advice (07) ==
PROVIDERS: Emergency Provider Emergency Medicine
DX: K08.89 Other specified disorders of teeth and supporting structures (principal); Z53.21 Procedure and treatment not carried out due to patient leaving prior to being seen by health care provider
CPT/HCPCS: 99281; 99282

== ENCOUNTER 2025-03-08 05:40 | Emergency (ER) | payer MEDICAID, SELFPAY ==
[2025-03-08 05:49] VITALS: BP 114/64; PULSE 91; RESP 20; TEMP 37; O2SAT 97; BMI 32.1
--- NOTE | 2025-03-08 05:58 | ED.GENADULT ---
HPI - General Adult General Chief complaint: Nausea/Vomiting/Diarrhea Stated complaint: Malaise Time Seen by Provider: 03/08/25 05:57 History of Present Illness ED Provider: Sravanthi CHRISTENSEN narrative: The patient is a 34-year-old female with a history of opioid use disorder who says she is on methadone. She says that she woke up with a headache yesterday morning at around 09:00. The headache has been persistent. It is associated with a sense of dizziness, nausea, photophobia, and phonophobia. She says that she has a history of headaches with this headache is worse than usual. No fever, sweats, chills. No neck stiffness. The patient used heroin last night at around 23:00. She says that she took it by snorting it. She does not inject. She says that since then she has been very dizzy and ultimately called an ambulance and came to the hospital. No chest pain. Related Data Home Medications ?Medication ?Instructions ?Recorded ?Confirmed methadone 10 mg/mL oral concentrate 140 mg PO DAILY 03/22/24 03/22/24 Previous Rx's ?Medication ?Instructions ?Recorded chlorhexidine gluconate 0.12 % 15 ml buccal BID #473 mL 08/20/21 mouthwash clindamycin HCl 300 mg capsule 300 mg PO Q6H 7 days #28 caps 08/20/21 ibuprofen 600 mg tablet 600 mg PO Q8H PRN pain #30 tabs 08/20/21 clindamycin HCl 300 mg capsule 300 mg PO Q6H 7 days #28 caps 02/02/22 ibuprofen 600 mg tablet 600 mg PO Q8H PRN pain #20 tabs 02/02/22 chlorhexidine gluconate 0.12 % 15 ml buccal BID #118 mL 09/13/22 mouthwash (Peridex) penicillin V potassium 500 mg 500 mg PO BID 10 days #20 tabs 09/13/22 tablet cefuroxime axetil 500 mg tablet 500 mg PO Q12H 7 days #14 tabs 09/27/23 metronidazole 500 mg tablet 500 mg PO Q12H 7 days #14 tabs 09/30/23 cefuroxime axetil 250 mg tablet 250 mg PO BID 7 days #14 tabs 03/22/24 amoxicillin 500 mg tablet 500 mg PO BID #14 tabs 04/14/24 acetaminophen 500 mg tablet 500 mg PO Q6H PRN fever or pain 10/22/24 (Tylenol Extra Strength) #14 tabs amoxicillin 875 mg-potassium 1 tab PO BID 7 days #14 tabs 10/22/24 clavulanate 125 mg tablet ibuprofen 800 mg tablet 800 mg PO Q8H PRN pain #14 tabs 10/22/24 naproxen 500 mg tablet 500 mg PO BID 7 days #14 tabs 11/22/24 penicillin V potassium 500 mg 500 mg PO BID 10 days #20 tabs 11/22/24 tablet Allergies Allergy/AdvReac Type Severity Reaction Status Date / Time aripiprazole (From ABILIFY) Allergy Unknown ANAPHYLAXIS Verified 03/08/25 05:55 Review of Systems Review of Systems: Yes all other systems are reviewed and are negative [facility] Past Medical History Medical History Heroin abuse Social History Social History Alcohol intake: never Smoked in Last 30 Days: Yes Use of substances other than those prescribed or required for medical reasons: Yes Substance Use Type: Heroin and Opiates Advance Directives: No Do you have a plan to hurt others: No Plan Patient : No Physical Exam ED Vital Signs: Vital Signs - 24 hr 03/08/25 05:49 03/08/25 07:32 03/08/25 07:43 Temperature 98.6 F 97.5 F 97.5 F Pulse Rate 91 84 84 Respiratory Rate 20 17 17 Blood Pressure 114/64 111/37 L 111/37 L Pulse Oximetry 97 98 98 Oxygen Delivery Method Room Air Room Air Room Air BMI result Body Mass Index 32.1 Const Other: The patient is a poorly kempt, somewhat chronically ill-appearing 34-year-old who was awake and alert. She does not appear obviously uncomfortable or ill. She is pleasant and cooperative. Orientation/consciousness: patient oriented x3 HENMT Other: Face is symmetrical, tongue is midline, mucous membranes moist, poor dentition. No trismus. Eyes General: appearance normal, both eyes and all related structures Alignment and Position: alignment normal Periorbital: periorbital findings normal Eyelids: Yes eyelids normal Conjunctivae: conjunctivae normal Sclerae: sclerae normal Pupils: Equal, round and reactive pupils present EOM: EOMs intact bilaterally Neck Neck: Yes normal visual inspection, Yes full ROM and Yes no meningeal signs Resp Effort & Inspection: normal respiratory effort Auscultation: clear to auscultation bilaterally Cardio Other: No murmur heard Rate: regular rate Rhythm: regular rhythm Heart sounds: S1 normal heart sound present and S2 normal heart sound present GI Other: Abdomen is soft and nontender Skin Other: The skin is dry and unremarkable General skin exam: no rashes or lesions noted Neuro General: patient oriented x3, tone normal, moves all extremities, no meningeal signs, no focal motor deficits and CN's II-XI intact bilaterally Cranial nerves: Yes Equal, round and reactive pupils present Extrem Other: There is no calf swelling or tenderness. No asymmetry. No peripheral edema. Course Course Course Narrative: The patient is a 34-year-old female who presents with complaints of dizziness and a headache. Her description of the headache suggests a possible migraine headache. The headache does not sound like a thunderclap headache. There was no associated neck stiffness. There is a associated nausea, photophobia, phonophobia, and dizziness. Clinically the patient does not appear toxic or unwell. She is not hypertensive. A plan was to treat the patient symptomatically for a possible migraine while simultaneously getting a head CT. She has a history of opioid use disorder and I felt getting a head CT would be prudent although my suspicion for subarachnoid hemorrhage or other acutely dangerous process is quite low. The patient received a dose of ketorolac, metoclopramide, and diphenhydramine as well as IV fluids. Unfortunately the patient experienced an akathisia-type reaction, presumably from the metoclopramide. She said that she was restless and wanted to leave the emergency room and be discharged. I went to see your and explained that I thought she was experiencing a reaction to the medication she had received and that she might feel better with the additional diphenhydramine. She told me that her headache had entirely resolved and she was feeling much better from the point of view of her headache, her dizziness, her nausea, and her photophobia. She only wanted to go home and take a shower. I explained that she might continued to feel restless if she was discharged if we did not treat this drug reaction. However I was unable to convince the patient to accept any additional medication and she was ultimately discharged. The nurse removed her IV. The patient left the emergency room before getting her formal discharge instructions. Medications Administered Discontinued Medications Generic Name Dose Route Start Last Admin Trade Name Radames PRN Reason Stop Dose Admin Diphenhydramine HCl 25 mg 03/08/25 06:15 03/08/25 06:46 Diphenhydramine Hcl 50 Mg/Ml Vial IVPUSH 03/08/25 06:16 25 mg ONCE ONE Administration Diphenhydramine HCl 25 mg 03/08/25 07:28 03/08/25 07:42 Diphenhydramine Hcl 50 Mg/Ml Vial IVPUSH 03/08/25 07:29 Not Given ONCE ONE Sodium Chloride 1,000 mls @ 999 mls/hr 03/08/25 06:15 03/08/25 06:46 Ns IV 03/08/25 07:15 999 mls/hr .Q1H1M XAVIER Administration Ketorolac Tromethamine 15 mg 03/08/25 06:15 03/08/25 06:46 Ketorolac Tromethamine 15 Mg/Ml Vial IVPUSH 03/08/25 06:16 15 mg ONCE ONE Administration Metoclopramide HCl 10 mg 03/08/25 06:15 03/08/25 06:46 Metoclopramide Hcl 10 Mg/2 Ml Vial IVPUSH 03/08/25 06:16 10 mg ONCE ONE Administration Medical Decision Making Lab Data 03/08/25 06:53 03/08/25 06:53 Labs: Lab Results 03/08/25 Range/Units 06:53 WBC 9.7 (4.8-10.8) X10*3/uL RBC 4.71 (4.20-5.50) X10*6/uL Hgb 13.9 (12.0-16.0) g/dl Hct 39.8 (37.0-47.0) % MCV 84.5 (80.0-98.0) fL MCH 29.5 (27.0-33.0) pg MCHC 34.9 (31.0-35.0) g/dl RDW 12.1 (11.0-16.0) % Plt Count 249 D (160-400) X10*3/uL MPV 9.8 (9.4-12.3) fL Immature Gran % (Auto) 0.4 (0.0-0.4) % Neut % (Auto) 63.0 (45-73) % Lymph % (Auto) 30.0 (20-40) % [place] % (Auto) 5.4 (2-11) % Eos % (Auto) 0.8 (0-4) % Baso % (Auto) 0.4 (0-2) % Lymph # (Auto) 2.9 (1.2-4.9) X10*3/uL [place] # (Auto) 0.5 (0.1-1.2) X10*3/uL Eos # (Auto) 0.1 (0.0-0.4) X10*3/uL Baso # (Auto) 0.0 (0.0-0.2) X10*3/uL Abs Immat Gran (auto) 0.04 H (0.00-0.03) X10*3/uL Absolute Neuts (auto) 6.1 (2.0-8.3) x10*3/uL Absolute Nucleated RBC 0.000 (0.0-0.012) X10*3/uL Nucleated RBC % (auto) 0.0 (0.0-0.2) /100WBC Sodium 142 (135-145) mmol/L Potassium 3.7 D (3.3-5.1) mmol/L Chloride 107 (96-108) mmol/L Carbon Dioxide 26 (22-29) mmol/L Anion Gap 13 (12-20) BUN 11 (9-16) mg/dL Creatinine 0.69 (0.5-1.4) mg/dL Estim Creat Clear Calc 114.3 Estimated GFR > 60 Random Glucose 95 (60-115) mg/dL Calcium 8.5 (8.4-10.2) mg/dL Magnesium 2.5 (1.6-2.6) mg/dL Total Bilirubin 0.4 (0.0-1.0) mg/dL AST 22 (5-31) U/L ALT 11 (0-31) U/L Alkaline Phosphatase 79 (39-117) U/L C-Reactive Protein 0.20 (< or = 0.50) mg/dL Total Protein 7.5 (6.5-8.0) g/dL Albumin 4.8 (3.5-5.0) g/dL Beta HCG, Quant < 2 mIU/mL Ethyl Alcohol 13 mg/dL Discharge Plan Discharge Clinical Impression: Headache Patient Disposition: Home, Self-Care Additional Instructions: You has a headache today that seemed like a migraine headache. You received medications which we usually give to help with a migraine headache. You became extremely uncomfortable and restless after receiving 1 of these medications. This medication is called metoclopramide, also known as Reglan. Please work on getting a regular primary care doctor. You has been given the contact information for some local primary care offices. Return to the emergency room if you feel significantly worse. If you ever want any help with issues related to drug use you may contact the [facility] here at [facility] for assistance. Prescriptions: No Action clindamycin HCl 300 mg capsule 300 mg PO Q6H 7 Days Qty: 28 0RF ibuprofen 600 mg tablet 600 mg PO Q8H PRN (Reason: pain) Qty: 20 0RF clindamycin HCl 300 mg capsule 300 mg PO Q6H 7 Days Qty: 28 0RF ibuprofen 600 mg tablet 600 mg PO Q8H PRN (Reason: pain) Qty: 30 0RF chlorhexidine gluconate 0.12 % mouthwash 15 ml buccal BID Qty: 473 0RF penicillin V potassium 500 mg tablet 500 mg PO BID 10 Days Qty: 20 0RF chlorhexidine gluconate [Peridex] 0.12 % mouthwash 15 ml buccal BID Qty: 118 0RF cefuroxime axetil 500 mg tablet 500 mg PO Q12H 7 Days Qty: 14 0RF metronidazole 500 mg tablet 500 mg PO Q12H 7 Days Qty: 14 0RF methadone 10 mg/mL Concentrate 140 mg PO DAILY cefuroxime axetil 250 mg tablet 250 mg PO BID 7 Days Qty: 14 0RF amoxicillin 500 mg tablet 500 mg PO BID Qty: 14 0RF amoxicillin-pot clavulanate 875-125 mg tablet 1 tab PO BID 7 Days Qty: 14 0RF ibuprofen 800 mg tablet 800 mg PO Q8H PRN (Reason: pain) Qty: 14 0RF acetaminophen [Tylenol Extra Strength] 500 mg tablet 500 mg PO Q6H PRN (Reason: fever or pain) Qty: 14 0RF penicillin V potassium 500 mg tablet 500 mg PO BID 10 Days Qty: 20 0RF naproxen 500 mg tablet 500 mg PO BID 7 Days Qty: 14 0RF Referrals: [facility] [Provider Group] [facility] [Provider Group] [facility] [place] [facility] [Provider Group[place] [facility] [place] [facility] [Provider Group, Internal Medicine] [facility] [place] [facility] [Provider Group, Pediatrics] Interventions: ED Discharge Assessment Last Done: 03/08/25 07:43 Discharge Date/Time: 03/08/25 07:43 Print Language: Cameroonian
--- NOTE | 2025-03-08 06:01 | ECG_ITS ---
Test Reason : DIZZINESS Blood Pressure : */* mmHG Vent. Rate : 79 BPM Atrial Rate : 79 BPM P-R Int : 170 ms QRS Dur : 100 ms QT Int : 396 ms P-R-T Axes : 33 12 29 degrees QTcB Int : 454 ms Normal sinus rhythm Incomplete right bundle branch block Borderline ECG When compared with ECG of 22-Mar-2024 04:56, Nonspecific T wave abnormality has replaced inverted T waves in Anterior leads Referred By: Generic ED Physician Electronically Signed By: DARWIN MONIQUE
[2025-03-08 07:02] LABS: MANUAL DIFF FLAG NO
[2025-03-08 07:05] LABS: Hematocrit 39.8 % (37.0-47.0); Hemoglobin 13.9 g/dl (12.0-16.0); Imm Gran Abs Auto 0.04 X10*3/uL (0.00-0.03); Imm Gran Pct Auto 0.4 % (0.0-0.4); Lymphocytes Absolute Auto 2.9 X10*3/uL (1.2-4.9); Mean Corpuscular HGB Conc 34.9 g/dl (31.0-35.0); Mean Corpuscular Hemoglobin 29.5 pg (27.0-33.0); Mean Corpuscular Volume 84.5 fL (80.0-98.0); NRBC Abs Auto 0.000 X10*3/uL (0.0-0.012); NRBC Pct Auto 0.0 /100WBC (0.0-0.2); Platelet Count 249 X10*3/uL (160-400); Red Blood Count 4.71 X10*6/uL (4.20-5.50); White Blood Count 9.7 X10*3/uL (4.8-10.8)
[2025-03-08 07:17] LABS: Alanine Aminotransferase 11 U/L (0-31); Albumin Level 4.8 g/dL (3.5-5.0); Alkaline Phosphatase 79 U/L (39-117); Anion Gap 13 (12-20); Aspartate Amino Transferase 22 U/L (5-31); Blood Urea Nitrogen 11 mg/dL (9-16); Calcium 8.5 mg/dL (8.4-10.2); Carbon Dioxide 26 mmol/L (22-29); Chloride 107 mmol/L (96-108); Creatinine Clr Calc Pharmacy 114.3; Estimated Glomerular Filt Rate > 60; Potassium 3.7 mmol/L (3.3-5.1); Sodium 142 mmol/L (135-145); Total Protein 7.5 g/dL (6.5-8.0)
[2025-03-08 07:23] LABS: Magnesium 2.5 mg/dL (1.6-2.6)
[2025-03-08 07:32] VITALS: BP 111/37; PULSE 84; RESP 17; TEMP 36.4; O2SAT 98
--- NOTE | 2025-03-08 07:40 | PC.NURSE ---
patient noted to become extremely restless/yelling in room. upon assessment, pt reporting that she has hx of restless leg syndrome and that her legs feel like they are on fire! provider notified/aware. MD suspects adverse reaction d/t previous medication administration. pt agreeable to receiving additional dose of IV benadryl to decrease sx but then eventually refused. attempted to provide pt w/ PCP referrals but refused to wait for d/c paperwork. IV access removed prior to d/c.
[2025-03-08 07:43] VITALS: BP 111/37; PULSE 84; RESP 17; TEMP 36.4; O2SAT 98
== END 2025-03-08 07:43 | disposition home or self-care (01) ==
PROVIDERS: Emergency Provider Emergency Medicine
DX: G43.909 Migraine, unspecified, not intractable, without status migrainosus (principal); R11.2 Nausea with vomiting, unspecified; R19.7 Diarrhea, unspecified; F11.20 Opioid dependence, uncomplicated; H53.149 Visual discomfort, unspecified
CPT/HCPCS: 36415; 80053; 80307; 83735; 84702; 85025; 86140; 93005; 96374; 96375; 99284; 99285; J1200; J1885; J2765

== ENCOUNTER → 2025-03-08 06:01 | Outpatient (BNV) | payer MEDICAID, SELFPAY | PROVIDERS: Emergency Provider Emergency Medicine; Visit Provider Internal Medicine | DX: I45.10 Unspecified right bundle-branch block (principal) | CPT/HCPCS: 93010 ==